=== PATIENT | male | born 1945 | race Caucasian/White ===

== ENCOUNTER 2018-04-06 15:26 | Inpatient (IN) | payer OTHER ==
[~2018-04-06] VITALS: Ht 190.5 cm; Wt 165.2 kg
--- NOTE | 2018-04-06 15:51 | ED CARDIAC/CP/PALPITATIONS ---
History of Present Illness General Chief Complaint: Chest Pain Stated Complaint: CP/SOB Source: patient Exam Limitations: no limitations Vital Signs & Intake/Output Vital Signs & Intake/Output Vital Signs Date Time Temp Pulse Resp B/P B/P Pulse O2 O2 Flow FiO2 Mean Ox Delivery Rate 04/09 0000 96 Room Air 04/09 0000 98.6 44 16 144/60 96 Room Air 04/08 2155 Room Air 04/08 1600 97.7 72 22 140/58 96 Room Air 04/08 0833 46 151/58 04/08 0800 97.0 44 22 160/58 95 Room Air ED Intake and Output 04/09 0000 04/08 1200 Intake Total 630 Output Total 1850 500 Balance -1220 -500 Intake, IV 0 Intake, Oral 630 Number 2 1 Bowel Movements Output, Urine 1850 500 Allergies Coded Allergies: No Known Allergies (04/06/18) Reconcile Medications Aspirin (Ecotrin*) 81 MG TABLET.DR 1 TAB PO DAILY HEART/BLOOD (Reported) Colchicine (Colcrys) 0.6 MG TABLET 1 TAB PO DAILY GOUT (Reported) Doxazosin Mesylate (Cardura) 4 MG TABLET 1 TAB PO DAILY BP (Reported) Febuxostat (Uloric) 80 MG TABLET 1 TAB PO DAILY URIC ACID (Reported) Fluticasone Propionate (Flonase Allergy Relief) 50 MCG/ACTUATION SPRAY.SUSP 1 SPRAY NASB DAILY SINUS (Reported) Furosemide 40 MG TABLET 1 TAB PO DAILY DIURETIC (Reported) Lisinopril/Hydrochlorothiazide (Lisinopril-Hctz 20-25 MG Tab) 20 MG-25 MG TABLET 1 TAB PO DAILY BP (Reported) Triage Note: PT TO ER WITH C/C CHEST HEAVINESS X 3.5 HRS STARTED WHILE SITTING WATCHING TV. STATES PT HAS HAD INCREASED B/L LE EDEMA AND EXERTIONAL SOB. ADDITIONALLY PT HAS A CLOGGED RIGHT EAR, CLEARED BY MD ON 03/31, NOW EXPERIENCING DIZZINESS W/ POSITION CHANGE. EKG COMPLETE UPON ARRIVAL TO ED Triage Nurses Notes Reviewed? yes HPI: 72yo male with a history of HTN and hyperlipidemia presents today for chest pressure, mild diaphoresis, and shortness of breath that started around noon today while he was watching tv. Pt states that the pain is constant pressure is in the center of his chest. The pain is localized to the chest and does not radiate anywhere. Over the past few weeks, pt has had new onset of shortness of breath with exersion, but denies any chest pressure associated with it. Pt has impressive edema of the bilateral lower extremities, for which he states is normal for him. Denies any history of chest pressure or pain. Denies any fevers, chills, headaches, nausea. Denies history of smoking. 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 Family history is significant for father with angina. Past History Travel History Traveled to [place] past 21 day No Medical History Any Pertinent Medical History? see below for history Cardiovascular: hypertension Surgical History Surgical History: non-contributory Psychosocial History What is your primary language [place] Tobacco Use: Never used Family History Hx Contributory? No Review of Systems Review of Systems Constitutional: Reports: no symptoms. EENTM: Reports: no symptoms. Respiratory: Reports: no symptoms. Cardiovascular: Reports: no symptoms. GI: Reports: no symptoms. Genitourinary: Reports: no symptoms. Musculoskeletal: Reports: no symptoms. Skin: Reports: no symptoms. Neurological/Psychological: Reports: no symptoms. Hematologic/Endocrine: Reports: no symptoms. Immunologic/Allergic: Reports: no symptoms. All Other Systems: Reviewed and Negative Physical Exam Physical Exam General Appearance: well developed/nourished, no apparent distress Head: atraumatic, normal appearance Eyes: Bilateral: normal appearance. Ears, Nose, Throat: hearing grossly normal Neck: normal inspection, supple, full range of motion Respiratory: normal breath sounds, chest non-tender, no respiratory distress Cardiovascular: regular rate/rhythm Gastrointestinal: soft, non-tender Back: normal inspection, normal range of motion Extremities: normal inspection, normal range of motion Neurologic/Psych: awake, alert, oriented x 3, normal mood/affect Skin: intact, normal color, warm/dry Core Measures ACS in differential dx? Yes CVA/TIA Diagnosis No Sepsis Present: No Sepsis Focused Exam Completed? No Progress Differential Diagnosis: AMI, aortic dissection, atrial fibrillation, cholecystitis, CHF/pulm edema, costochondritis, hyperkalemia, hypovolemia, hyperthyroid, hyperventilation, intracranial hemorrhage, musculoskeletal pain, myocarditis, pancreatitis, pericarditis, pneumonia, pneumothorax, PSVT, pulmonary embolism, PUD/GERD, PVCs/PACs, respiratory failure, rib fracture, sepsis, unstable angina, V-fib/V-Tach, WPW syndrome Plan of Care: Orders Procedure Date/time Status MAGNESIUM 04/09 0500 Active CBC WITHOUT DIFFERENTIAL 04/09 0500 Active BASIC ELECTROLYTES PLUS BUN&CR 04/09 0500 Active Regular Diet 04/08 L Active Transfer patient to 04/08 1924 Active MYOCARDIAL PERFUSION IMAGING 04/08 1130 Active Current Medications Sig/Brittany Start time Last Medication Dose Stop Time Status Admin Fluticasone 2 SPRAY DAILY NEEDED PRN 04/09 09 AC Propionate (Flonase) Nystatin 1 HUANG BID 04/08 09 AC 04/08 (Mycostatin) 2034 Aspirin Buffered 81 MG DAILY 04/07 0900 AC 04/08 (Ecotrin) 0833 Colchicine 600 MCG DAILY 04/07 09 AC 04/08 (Colchicine 600MCG 0833 Tab) Enoxaparin Sodium 40 MG DAILY 04/07 09 AC 04/08 (Lovenox) 0833 Furosemide 40 MG DAILY 04/07 09 AC 04/08 (Lasix) 0833 Hydrochlorothiazide 25 MG DAILY 04/07 09 AC 04/08 (Hydrodiuril) 0833 Lisinopril 20 MG DAILY 04/07 0900 AC 04/08 (Prinivil) 0833 Atropine Sulfate 0.5 MG Q 5 MINUTES X 3 DO.. 04/06 2100 AC (Atropine) Acetaminophen 650 MG Q6P PRN 04/06 2045 AC (Tylenol) Laboratory Tests 04/08/18 0600: Anion Gap 11, Estimated GFR > 60, BUN/Creatinine Ratio 27.3 H, Magnesium 2.0 04/08/18 0525: CBC w Diff NO MAN DIFF REQ, RBC 4.89, MCV 84.3, MCH 27.7, MCHC 32.9 L, RDW 15.8 H, MPV 8.8, Gran % 64.1, Lymphocytes % 23.3, Monocytes % 8.2, Eosinophils % 4.1 , Basophils % 0.3, Absolute Granulocytes 4.5, Absolute Lymphocytes 1.6, Absolute Monocytes 0.6, Absolute Eosinophils 0.3, Absolute Basophils 0 On repeat EKG, patient is in complete heart block, still asymptomatic, will be admitted to the ICU. Sinus bradycardia to 42 on the monitor, asymptomatic. Spoke with cardiology, will admit patient for monitoring. Diagnostic Imaging: Viewed by Me: Radiology Read. Discussed w/RAD: Radiology Read. Initial ED EKG: normal sinus rhythm, no ST T wave changes Departure Departure Disposition: STILL A PATIENT Condition: Stable Clinical Impression Primary Impression: Chest pain at rest Secondary Impressions: Sinus bradycardia Departure Forms: Customer Survey General Discharge Information Admission Note Spoke With: Erich Woods MD Documentation of Exam: Documentation of any treatments & extenuating circumstances including Concerns Regarding Discharge (functional status, medication knowledge or non-compliance, living conditions, etc.) that warrant an admission rather than observation: chest pain at rest associated with SOB and diaphoresis with concern for unstable angina, along with sinus bradycardia to 40's with no history of bradycardia and no AV-roberto blocking agents, will admit to medicine for telemetry monitoring, serial cardiac enzymes and TSH, cardiology consult, stress test, workup of bradycardia. Critical Care Note Critical Care Note Critical Care Time: 30-74 min
[2018-04-06 16:10] LABS: ABSOLUTE BASOPHIL COUNT 0 /CUMM (0.0-0.2); ABSOLUTE EOSINOPHIL COUNT 0.3 /CUMM (0.0-0.7); ABSOLUTE GRANULOCYTE CT 4.4 /CUMM (1.4-6.5); ABSOLUTE LYMPH COUNT 1.7 /CUMM (1.2-3.4); ABSOLUTE MONOCYTE COUNT 0.6 /CUMM (0.10-0.60); BASOPHIL % 0.3 % (0.0-2.0); EOSINOPHIL % 4.7 % (0-5); GRANULOCYTE % 63.2 % (42.2-75.2); HEMATOCRIT 41.4 % (42-52); MEAN CORPUSCULAR HGB CONC 33.2 G/DL (33.0-37.0); MEAN CORPUSCULAR VOLUME 84.2 FL (80.0-94.0); MEAN PLATELET VOLUME 8.3 FL (7.4-10.4); PLATELET COUNT 210 /CUMM (130-400); RBC DISTRIBUTION WIDTH 15.6 % (11.5-14.5); RED BLOOD CELL CT 4.91 /CUMM (4.70-6.10)
[2018-04-06] MEDS ORDERED: COLCRYS0.6 M1 PO (16:14)
[2018-04-06] MEDS ORDERED: ASPIRIN EC81 M1 PO (16:14)
[2018-04-06] MEDS ORDERED: CARDURA4 M1 PO (16:15)
[2018-04-06] MEDS ORDERED: LISINOPRIL-HCT1 EAC1 PO (16:15)
[2018-04-06] MEDS ORDERED: FUROSEMIDE40 M1 PO (16:16)
[2018-04-06] MEDS ORDERED: ULORIC80 M1 PO (16:16)
[2018-04-06] MEDS ORDERED: FLONASE ALLERG9.9 ML NASB (16:18)
--- NOTE | 2018-04-06 16:45 | RADIOLOGY REPORT ---
EXAMINATION: XR CHEST CLINICAL INFORMATION: Chest pain. COMPARISON: None TECHNIQUE: 2 views of the chest were obtained. FINDINGS: No significant abnormality is noted involving the heart, lungs, mediastinum, bony thorax or soft tissues. IMPRESSION: Unremarkable examination.
--- NOTE | 2018-04-06 20:02 | History & Physical ---
Samy Brewer 04/06/18 2001: General Information and HPI MD Statement: I have seen and personally examined CARLIE DANG and documented this H&P. The patient is a 72 year old M who presented with a patient stated chief complaint of [chest pain]. Source of Information: patient, family Exam Limitations: no limitations History of Present Illness: The patient is a 72 years old man with past medical history of HTN, Obesity, HLP , and gout who is in the ER with CC of pressure like chest pain. This is the first time that he has had chest pain. He was feeling fine from this morning when he woke up. Previously he had some exertional SOB and diaphoresis for the past few weeks but he does not report any chest pain associated with that. He was felling relatively fine till 3.5 hours prior to admission (noon time) when he had a pressure like chest pain, mild diaphoresis and SOB. This pain happened while he was at rest watching TV. He reports the pain being constant, pressure-like and at the center of his chest. This pain did not radiate and there were no allevaiting factor. He talked to his son about his pain and then his family took him to the ER. During the interview he mentions that he had siaphoresis on his way to the hospital. He also reports that recently he has been having SOB and excessive sweating during activity. This the first time that he has had a chest pain. He does not report headache, fever, chills, change in his vision, palpiatation, dizziness, acid reflux, lightheadedness, SOB, cough, N/V, change in bowel habits , tingling, numbness, or changes in urination. PMHx: HTN, Obesity, HLP, and gout Surg Hx: Retina and cataract surgery. Rt elbow surgery. FHx: Father: angina, prostate cancer, Mother: Alzheimer disease Social: he does not smoke, drinks alcohol socially and no recreational drug use. 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 Labs: WBC: 6.7, Hb: 13.6, Hct: 41.1, Plt: 190 Na: 143, K: 4.1, Cl: 106, CO2: 27, BUN: 31, Cr: 1.0 M.1, Trop: <0.01 x 2 Imaging: CXR: Unremarkable examination. EKG: Junctional bradycardia with sinus arrest and retrograde P waves and complete right bundle branch block and first-degree AV block Allergies/Medications Allergies: Coded Allergies: No Known Allergies (04/06/18) Home Med list Aspirin (Ecotrin*) 81 MG TABLET.DR 1 TAB PO DAILY HEART/BLOOD (Reported) Colchicine (Colcrys) 0.6 MG TABLET 1 TAB PO DAILY GOUT (Reported) Doxazosin Mesylate (Cardura) 4 MG TABLET 1 TAB PO DAILY BP (Reported) Febuxostat (Uloric) 80 MG TABLET 1 TAB PO DAILY URIC ACID (Reported) Fluticasone Propionate (Flonase Allergy Relief) 50 MCG/ACTUATION SPRAY.SUSP 1 SPRAY NASB DAILY SINUS (Reported) Furosemide 40 MG TABLET 1 TAB PO DAILY DIURETIC (Reported) Lisinopril/Hydrochlorothiazide (Lisinopril-Hctz 20-25 MG Tab) 20 MG-25 MG TABLET 1 TAB PO DAILY BP (Reported) Compliance With Home Meds: GOOD Past History Travel History Traveled to [place] past 21 day No Medical History Cardiovascular: hypertension Surgical History Surgical History: non-contributory Review of Systems Review of Systems Constitutional: Reports: see HPI. EENTM: Reports: see HPI. Cardiovascular: Reports: see HPI. Respiratory: Reports: see HPI. GI: Reports: see HPI. Genitourinary: Reports: see HPI. Musculoskeletal: Reports: see HPI. Skin: Reports: see HPI. Neurological/Psychological: Reports: see HPI. Hematologic/Endocrine: Reports: see HPI. Immunologic/Allergic: Reports: see HPI. Exam & Diagnostic Data Last 24 Hrs of Vital Signs/I&O Vital Signs Date Time Temp Pulse Resp B/P B/P Pulse O2 O2 Flow FiO2 Mean Ox Delivery Rate 04/06 2200 96.8 60 24 174/58 95 Room Air 04/06 2041 56 18 178/80 96 Room Air 04/06 1935 52 18 170/60 97 Room Air 04/06 1754 98.1 53 18 174/70 99 Room Air 04/06 1559 97 04/06 1538 98.7 67 18 154/59 100 Room Air Intake & Output 04/07 0800 04/07 0000 04/06 1600 Intake Total 320 420 Output Total 400 Balance -80 420 Intake, IV 0 Intake, Oral 320 420 Number 1 1 Bowel Movements Output, Urine 400 Patient 377 lb 385 lb Weight Weight Bed scale Reported by Patient Measurement Method Physical Exam General Appearance Alert, Oriented X3, Cooperative, No Acute Distress Skin No Rashes, No Breakdown Skin Temp/Moisture Exam: Warm/Dry Sepsis Skin Exam (color): Normal for Ethnicity HEENT Atraumatic, PERRLA, EOMI Neck Supple, No JVD Cardiovascular Regular Rate, Normal S1, Normal S2 Lungs Clear to Auscultation, Normal Air Movement Abdomen Normal Bowel Sounds, Soft, No Tenderness Neurological Normal Speech, Strength at 5/5 X4 Ext, Sensation Intact Extremities bilateral 2+ PITTING EDEMA IN lEs Vascular Normal Pulses Sepsis Peripheral Pulse Location: Radial Sepsis Peripheral Pulse Exam: Normal Sepsis Cap Refill Exam: <2 Sec Assessment/Plan Assessment: Mr. Dang is a 72 yo man with a PMHx of HTN and HLP who is here with chest pain that is non-radiating with, diaphoresis. At the time of interview he did not have chest pain and he felt relatively fine. he had SBP of 154 to 178. In physical examination the patient is morbidly obese. He is physical examinations for cardiopulmonary was normal. His troponin level and BNP were normal. Chest x-ray was normal. BUN and creatinine and electrolytes were normal in his labs. He is EKG showed a wide complex bradycardia with some dropped beats that did not have a P-wave and it also showed a right bundle branch block. Patient received 325mg of aspirin in the ED. He has multiple risk factors for coronary artery disease. He had acute onset chest discomfort with no radiation while he was at rest. Last time he saw a associate program manager was a 1 year ago but no specific tests were done for him. He will be admitted to ICU and EKG troponin levels will be assessed while he has 3 negative levels of troponin. A transthoracic echocardiogram should be considered for the patient and the associate program manager will visit the patient for better evaluation. Problem list Possible angina (the patient had chest pain and diaphoresis) Bradycardia with conduction disease Hypertension Hyperlipidemia Obesity As Ranked By This Provider Problem List: 1. Chest pain at rest 2. Sinus bradycardia 3. Morbid obesity 4. Hyperlipidemia Core Measures/Misc (06/02) Acute Coronary Syndrome ACS Diagnosis: Yes Congestive Heart Failure Congestive Heart Failure Diagnosis No Cerebrovascular Accident CVA/TIA Diagnosis: No VTE (View Protocol) VTE Risk Factors Age>40 No Mechanical VTE Prophylaxis d/t N/A MechProphylax Ordered No VTE Pharm Prophylaxis d/t NA PharmProphylax ordered Sepsis (View protocol) Sepsis Present: No If YES complete Sepsis Event Note If YES complete Sepsis Event Note Fernando Mccormick MD 04/06/182036: Core Measures/Misc (06/02) Sepsis (View protocol) If YES complete Sepsis Event Note If YES complete Sepsis Event Note Resident Review Statement Resident Statement: examined this patient, discussed with software intern, agreed with software intern, reviewed EMR data (avail) Other Findings: History of present illness 72-year-old man with past medical history of hypertension, hyperlipidemia, gout, and obesity brought in by ambulance for evaluation of chest pain at rest. Patient reports being in his normal state of health when he was at home watching television on the couch around 12:30 PM when he developed sudden onset left- sided chest discomfort without radiation or aggravating/alleviating factors. Patient informed his son of this whom informed the patient's for which EMS was contacted and patient was brought to the [facility] for evaluation. Presently patient states that he feels well and has no new complaints but does admit to developing an episode of cold sweats en route to the hospital. He admits to recently developing exertional shortness of breath with excessive sweating during any kind of physical activity. He denies ever having had an event like this before. He admits to a family history of multiple first-degree family members with significant cardiovascular disease. 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 He denies any obvious recent tick bites. Review of systems He otherwise denies any headache, fever, chills, blurred/double vision, lightheadedness/dizziness, current chest pain, palpitations, heartburn, shortness of breath, cough, nausea, vomiting, diarrhea, constipation, abdominal pain, urinary complaints, numbness, tingling, or weakness. Social history He denies smoking cigarettes, drinking alcohol, or use of recreational drugs. He is independent in all ADLs/IADLs. He is compliant with his medications. Objective Vitals-temperature 98.1-98.7, HR 52-67, RR 18, BP 154-178/59-70, O2 97-100% on room air Physical exam -General: Well-developed, morbidly obese elderly man in no acute distress -HEENT: NCAT, Bao, EOMI, anicteric sclera, moist mucous membranes -Neck: Supple, no JVD/garcia A waves, trachea midline, no accessory respiratory muscle use -Cardio: Normal S1/S2 without murmurs/gallops/rubs; regular rate and rhythm -Pulmonary: Diminished bibasilar airflow -Abdomen: Soft, obese, nontender, nondistended, bowel sounds intact -Neuro: Awake and alert, cranial nerves II through XII grossly intact -Extremities: 4+ bilateral lower extremity pitting edema, normal pulses Labs/imaging/studies -CBC: WBC 7.0, hemoglobin 13.8, hematocrit 41.4, platelet 210 -BMP: Sodium 143, potassium 4.1, chloride 105, CO2 27, BUN 33, creatinine 1.3, anion gap 10, glucose 89 -LFT: Within normal limits -Miscellaneous: Troponin I <0.01, BNP 363 -EKG: Junctional bradycardia with sinus arrest and retrograde P waves and complete right bundle branch block and first-degree AV block -CXR: Unremarkable examination Assessment 72-year-old morbidly obese man with multiple cardiovascular risk factors including hypertension, and hyperlipidemia seen for evaluation of acute onset left-sided nonradiating chest pain with diaphoresis at rest. Presently patient feels well and has no complaints. Vital signs are significant for an elevated systolic blood pressure ranging 154-178. Physical examination demonstrates a morbidly obese elderly man in no acute distress with a normal cardiopulmonary examination, flat neck veins, and 4+ bilateral lower extremity chronic edema. Labs including CBC, BMP, troponin I, BNP, LFT are within normal limits or negative. Chest x-ray is unremarkable. EKG demonstrated wide complex bradycardia with retrograde P waves and complete right bundle branch block. Patient received full strength aspirin in the ED. Clinically patient appears to have had acute onset chest discomfort at rest that resolved without intervention. Patient has multiple cardiovascular risk factors concerning for underlying coronary artery disease. Patient reportedly saw a associate program manager approximately 1 year ago prior to having "eye surgery" but did not have any testing done other than an EKG. patient has moderate pretest probability for coronary artery disease and is likely suffering from angina. EKG demonstrates high-grade conduction disease with occasional brief episodes of sinus arrest. Patient is being admitted to the ICU as a telemetry hold for telemetry monitoring, serial troponin/EKG, possibly transcutaneous pacing, transthoracic echocardiogram, and cardiology consultation. Problem List -chest discomfort with diaphoresis, probable underlying angina -bradycardia with high-grade conduction disease -hypertension -Hyperlipidemia -Morbid obesity -Gout Plan -Admit to ICU as telemetry hold -Telemetry monitoring -Keep pacer pads on patient attached to monitor at all times -Atropine at bedside -Continue home meds: Aspirin, colchicine, Cardura, Uloric, fluticasone, furosemide, lisinopril, hydrochlorothiazide -Consult with cardiology -Trend troponin / EKG until peak or three negative sets -Check TSHR, Lyme Titer, Lipid panel, HbA1c -Transthoracic echocardiogram -Pain control with acetaminophen -Heart Healthy Diet -DVT PPx -FULL CODE Chuck LAZOGrant 04/07/18 0452: General Information and HPI Statement: I have seen and personally examined JANACURTCARLIE and documented this H&P. The patient is a 72 year old M who presented with a patient stated chief complaint of [chest pain]. Source of Information: patient Exam Limitations: no limitations Past History Medical History Cardiovascular: hypertension, hyperlipidemia Musculoskeletal: gout Endocrine: obesity Past Family/Social History Psychosocial History Smoking Status: Never Smoked ETOH Use: denies use Illicit Drug Use: denies illicit drug use Review of Systems Review of Systems Constitutional: Reports: see HPI. Exam & Diagnostic Data Last 24 Hrs of Vital Signs/I&O Vital Signs Date Time Temp Pulse Resp B/P B/P Pulse O2 O2 Flow FiO2 Mean Ox Delivery Rate 04/06 2200 96.8 60 24 174/58 95 Room Air 04/06 2041 56 18 178/80 96 Room Air 04/06 1935 52 18 170/60 97 Room Air 04/06 1754 98.1 53 18 174/70 99 Room Air 04/06 1559 97 04/06 1538 98.7 67 18 154/59 100 Room Air Intake & Output 04/07 0800 04/07 0000 04/06 1600 Intake Total 420 Output Total Balance 420 Intake, IV 0 Intake, Oral 420 Number 1 Bowel Movements Patient 377 lb 385 lb Weight Weight Bed scale Reported by Patient Measurement Method Physical Exam General Appearance Alert, Oriented X3, Cooperative, No Acute Distress Skin No Rashes, No Breakdown HEENT Atraumatic, PERRLA, EOMI Neck Supple, No JVD Lymphatic Axillary nl, Cervical nl Cardiovascular Regular Rate, Normal S1, Normal S2 Lungs Clear to Auscultation, Normal Air Movement Abdomen Normal Bowel Sounds, Soft, No Tenderness Neurological Normal Gait, Normal Speech Extremities b/l LE edema Vascular Normal Pulses Last 24 Hrs of Labs/Kartik: Laboratory Tests 04/07/18 0030: Troponin I < 0.01 04/06/18 1920: Troponin I < 0.01 04/06/18 1552: Anion Gap 10, Estimated GFR 54 L, BUN/Creatinine Ratio 25.4 H, Glucose 89, Hemoglobin A1c Pending, Calcium 8.9, Total Bilirubin 0.4, AST 19, ALT 29, Alkaline Phosphatase 57, Troponin I < 0.01, Pvy-V-Fhpejrakhzs Pept 363 H, Total Protein 6.6, Albumin 3.5, Globulin 3.1, Albumin/Globulin Ratio 1.1, Triglycerides 192 H, Cholesterol 147, LDL Cholesterol, Calc 83, HDL Cholesterol 26 L, Cholesterol/HDL Ratio 6 H, TSH &T3 &Free T4 Intrp 4.000, CBC w Diff NO MAN DIFF REQ, RBC 4.91, MCV 84.2, MCH 28.0, MCHC 33.2, RDW 15.6 H, MPV 8.3, Gran % 63.2, Lymphocytes % 23.5, Monocytes % 8.3, Eosinophils % 4.7, Basophils % 0.3, Absolute Granulocytes 4.4, Absolute Lymphocytes 1.7, Absolute Monocytes 0.6 , Absolute Eosinophils 0.3, Absolute Basophils 0, Lyme Disease Antibody Pending Microbiology 04/06 2200 UPPER RESP: Surveillance Culture - RECD 04/06 2200 GI: Surveillance Culture - RECD Core Measures/Misc (06/02) Sepsis (View protocol) If YES complete Sepsis Event Note If YES complete Sepsis Event Note Attending MD Review Statement Attending Statement Attending MD Statement: examined this patient, discuss w/resident/PA/WATER RESOURCE AGENT, agreed w/resident/PA/WATER RESOURCE AGENT, amended to note Attending Assessment/Plan: This patient is a 72-year-old white male with a significant past medical history for hypertension, hyperlipidemia, gout, and obesity brought in by ambulance for evaluation of chest pain at rest. The patient reports being in his normal state of health when he was at home watching television on the couch around 12:30 PM the day of admission when he developed sudden onset left-sided chest discomfort without radiation or aggravating/alleviating factors. Upon evaluation he is found to have an elevated BP, 4+ b/l LE edema, negative troponin, BNP 363 and an EKG with RBBB & 1st Degree AVB. He had acute onset chest discomfort at rest that resolved without intervention with multiple cardiovascular risk factors concerning for underlying coronary artery disease. Admitted to the ICU as a telemetry hold for telemetry monitoring, serial troponin/EKG, possibly transcutaneous pacing, transthoracic echocardiogram, and cardiology consultation. Protein 6.6, Albumin 3.5, Globulin 3.1, Albumin/Globulin Ratio 1.1, Triglycerides 192 H, Cholesterol 147, LDL Cholesterol, Calc 83, HDL Cholesterol 26 L, Cholesterol/HDL Ratio 6 H, TSH &T3 &Free T4 Intrp 4.000, CBC w Diff NO MAN DIFF REQ, RBC 4.91, MCV 84.2, MCH 28.0, MCHC 33.2, RDW 15.6 H, MPV 8.3, Gran % 63.2, Lymphocytes % 23.5, Monocytes % 8.3, Eosinophils % 4.7, Basophils % 0.3, Absolute Granulocytes 4.4, Absolute Lymphocytes 1.7, Absolute Monocytes 0.6 , Absolute Eosinophils 0.3, Absolute Basophils 0, Lyme Disease Antibody Pending Microbiology 04/06 2200 UPPER RESP: Surveillance Culture - RECD 04/06 2200 GI: Surveillance Culture - RECD Core Measures/Misc (06/02) Sepsis (View protocol) If YES complete Sepsis Event Note If YES complete Sepsis Event Note Attending MD Review Statement Attending Statement Attending MD Statement: examined this patient, discuss w/resident/PA/WATER RESOURCE AGENT, agreed w/resident/PA/WATER RESOURCE AGENT, amended to note Attending Assessment/Plan: This patient is a 72-year-old white male with a significant past medical history for hypertension, hyperlipidemia, gout, and obesity brought in by ambulance for evaluation of chest pain at rest. The patient reports being in his normal state of health when he was at home watching television on the couch around 12:30 PM the day of admission when he developed sudden onset left-sided chest discomfort without radiation or aggravating/alleviating factors. Upon evaluation he is found to have an elevated BP, 4+ b/l LE edema, negative troponin, BNP 363 and an EKG with RBBB & 1st Degree AVB. He had acute onset chest discomfort at rest that resolved without intervention with multiple cardiovascular risk factors concerning for underlying coronary artery disease. Admitted to the ICU as a telemetry hold for telemetry monitoring, serial troponin/EKG, possibly transcutaneous pacing, transthoracic echocardiogram, and cardiology consultation.
[2018-04-06 22:00] VITALS: BP 174/58
[2018-04-07 06:02] LABS: ABSOLUTE BASOPHIL COUNT 0 /CUMM (0.0-0.2); ABSOLUTE EOSINOPHIL COUNT 0.3 /CUMM (0.0-0.7); ABSOLUTE GRANULOCYTE CT 4.5 /CUMM (1.4-6.5); ABSOLUTE LYMPH COUNT 1.4 /CUMM (1.2-3.4); ABSOLUTE MONOCYTE COUNT 0.5 /CUMM (0.10-0.60); BASOPHIL % 0.7 % (0.0-2.0); EOSINOPHIL % 4.7 % (0-5); GRANULOCYTE % 67.3 % (42.2-75.2); HEMATOCRIT 41.1 % (42-52); MEAN CORPUSCULAR HGB 27.9 PG (27.0-31.0); MEAN CORPUSCULAR HGB CONC 33.1 G/DL (33.0-37.0); MEAN CORPUSCULAR VOLUME 84.4 FL (80.0-94.0); MEAN PLATELET VOLUME 8.9 FL (7.4-10.4); PLATELET COUNT 190 /CUMM (130-400); RBC DISTRIBUTION WIDTH 15.6 % (11.5-14.5); RED BLOOD CELL CT 4.87 /CUMM (4.70-6.10); WHITE BLOOD CELL COUNT 6.7 /CUMM (4.8-10.8)
[2018-04-07 07:00] VITALS: BP 142/62
--- NOTE | 2018-04-07 07:19 | Cons- CRCU ---
General Information and HPI Allergies/Medications Allergies: Coded Allergies: No Known Allergies (04/06/18) Home Med List: Aspirin (Ecotrin*) 81 MG TABLET.DR 1 TAB PO DAILY HEART/BLOOD (Reported) Colchicine (Colcrys) 0.6 MG TABLET 1 TAB PO DAILY GOUT (Reported) Doxazosin Mesylate (Cardura) 4 MG TABLET 1 TAB PO DAILY BP (Reported) Febuxostat (Uloric) 80 MG TABLET 1 TAB PO DAILY URIC ACID (Reported) Fluticasone Propionate (Flonase Allergy Relief) 50 MCG/ACTUATION SPRAY.SUSP 1 SPRAY NASB DAILY SINUS (Reported) Furosemide 40 MG TABLET 1 TAB PO DAILY DIURETIC (Reported) Lisinopril/Hydrochlorothiazide (Lisinopril-Hctz 20-25 MG Tab) 20 MG-25 MG TABLET 1 TAB PO DAILY BP (Reported) Past History Travel History Traveled to [place] past 21 day No Medical History Blood Transfusion Hx: No Cardiovascular: hypertension, hyperlipidemia Musculoskeletal: gout Endocrine: obesity Surgical History Surgical History: non-contributory Psychosocial History Where Do You Live? Home Services at Home: None Smoking Status: Never Smoked ETOH Use: denies use Illicit Drug Use: denies illicit drug use Assessment/Plan CRCU Consult Acknowledgment - Thank you for your consult request.
--- NOTE | 2018-04-07 10:19 | PN- Housestaff ---
Subjective Follow-up For: chest pain bradycardia with conduction disease Tele-Events Since Last Visit: Pauses on the sap portal developer noted. Subjective: Pt seen and examined at bedside this am. He was talkative and cooperative, not in any distress. He states the chest "discomfort and heaviness" is gone and does not feel SOB. Significant bilateral LE edema is noted. Review of Systems Constitutional: Reports: no symptoms. Objective Last 24 Hrs of Vital Signs/I&O Vital Signs Date Time Temp Pulse Resp B/P B/P Pulse O2 O2 Flow FiO2 Mean Ox Delivery Rate 04/06 2200 96.8 60 24 174/58 95 Room Air 04/06 2041 56 18 178/80 96 Room Air 04/06 1935 52 18 170/60 97 Room Air 04/06 1754 98.1 53 18 174/70 99 Room Air 04/06 1559 97 04/06 1538 98.7 67 18 154/59 100 Room Air Intake & Output 04/07 1600 04/07 0800 04/07 0000 Intake Total 320 420 Output Total 400 Balance -80 420 Intake, IV 0 Intake, Oral 320 420 Number 1 1 Bowel Movements Output, Urine 400 Patient 377 lb Weight Weight Bed scale Measurement Method Physical Exam General Appearance: Alert, Oriented X3, Cooperative, No Acute Distress Skin: scattered telangectasias noted on the face Sepsis Skin Exam (color): Normal for Ethnicity HEENT: Atraumatic Neck: Supple, No JVD Cardiovascular: Normal S1, Normal S2, No Murmurs, Bradycardic, pacer pads noted. Lungs: Clear to Auscultation, Normal Air Movement Abdomen: Normal Bowel Sounds, Soft, No Tenderness, No Hepatospenomegaly, No Masses, abdominal obesity Current Medications: Current Medications Sig/Brittany Start time Last Medication Dose Route Stop Time Status Admin Acetaminophen 650 MG Q6P PRN 04/06 2045 AC PO Aspirin 0 .STK-MED ONE 04/06 1602 DC PO Aspirin 325 MG ONCE ONE 04/06 1600 DC 04/06 PO 04/06 1601 1602 Aspirin Buffered 81 MG DAILY 04/07 900 AC 04/07 PO 935 Atropine Sulfate 0.5 MG Q 5 MINUTES X 3 DO.. 04/06 2100 AC IV Colchicine 600 MCG DAILY 04/07 900 AC 04/07 PO 935 Doxazosin Mesylate 1 MG DAILY 04/07 900 AC 04/07 PO 0936 Enoxaparin Sodium 40 MG DAILY 04/07 900 AC 04/07 SC 0940 Fluticasone 2 SPRAY DAILY 04/07 900 AC Propionate SHAUNNA Furosemide 40 MG DAILY 04/07 900 AC 04/07 PO 35 Hydrochlorothiazide 25 MG DAILY 04/07 900 AC 04/07 PO 36 Lisinopril 20 MG DAILY 04/07 900 AC 04/07 PO 0533 Last 24 Hrs of Lab/Kartik Results Last 24 Hrs of Labs/Mics: Laboratory Tests 04/07/18 0520: Anion Gap 10, Estimated GFR > 60, BUN/Creatinine Ratio 31.0 H, Magnesium 2.1, CBC w Diff NO MAN DIFF REQ, RBC 4.87, MCV 84.4, MCH 27.9, MCHC 33.1, RDW 15.6 H , MPV 8.9, Gran % 67.3, Lymphocytes % 20.2 L, Monocytes % 7.1, Eosinophils % 4.7, Basophils % 0.7, Absolute Granulocytes 4.5, Absolute Lymphocytes 1.4, Absolute Monocytes 0.5, Absolute Eosinophils 0.3, Absolute Basophils 0 04/07/18 0030: Troponin I < 0.01 04/06/18 1920: Troponin I < 0.01 04/06/18 1552: Anion Gap 10, Estimated GFR 54 L, BUN/Creatinine Ratio 25.4 H, Glucose 89, Hemoglobin A1c 5.9 H, Calcium 8.9, Total Bilirubin 0.4, AST 19, ALT 29, Alkaline Phosphatase 57, Troponin I < 0.01, Wbg-V-Flzreswutuz Pept 363 H, Total Protein 6.6, Albumin 3.5, Globulin 3.1, Albumin/Globulin Ratio 1.1, Triglycerides 192 H, Cholesterol 147, LDL Cholesterol, Calc 83, HDL Cholesterol 26 L, Cholesterol/HDL Ratio 6 H, TSH &T3 &Free T4 Intrp 4.000, CBC w Diff NO MAN DIFF REQ, RBC 4.91, MCV 84.2, MCH 28.0, MCHC 33.2, RDW 15.6 H, MPV 8.3, Gran % 63.2, Lymphocytes % 23.5, Monocytes % 8.3, Eosinophils % 4.7, Basophils % 0.3, Absolute Granulocytes 4.4, Absolute Lymphocytes 1.7, Absolute Monocytes 0.6 , Absolute Eosinophils 0.3, Absolute Basophils 0, Lyme Disease Antibody Pending Microbiology 04/06 2200 UPPER RESP: Surveillance Culture - RECD 04/06 2200 GI: Surveillance Culture - RECD Orders EKG Findings: Junctional bradycardia, sinus arrest and retrograde P waves with complete right bundle branch block and first-degree AV block Assessment/Plan Assessment: Mr. Dang is a 72 y/o M with a PMH of hypertension, hyperlipidemia, gout, and morbid obesity came to the ED c/o chest pain and SOB. As per the pt, this pain was not severe and nonradiating that appeared during rest with complete resolution without any intervention. SOB has however been proggresive over the past couple of months, especifically during exertion. EKG on ED showed a junctional bradycardia, sinus arrest and retrograde P waves with complete right bundle branch block and first-degree AV block. He was admitted to the ICU as a telemetry hold for close monitoring of abnormal rhythm and r/o ACS. 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 He has been consistently bradycardic though asymptomatic since admission, atropine is at the bedside with pacer pads on. His hemodynamic status has been stable so far. Cardiology has been consulted, with the plan of obtaining nuclear stress testing in the AM. Troponin have so far been negative: an acute compromise of cardiac muscle is less likely. His home medications have been continued, except for his doxazosin which in rare cases can trigger an arrhythmia. Lyme titers are negative. -stress testing in the am -f/u echo -continue lisinopril/furosemide/hctz/ASA -neg lyme titers #Gout Home meds have been continued. No episodes of acute joint pain overnight. -Continue colchicine FULL CODE DVT PPX: pharm Reg Diet Problem List: 1. Morbid obesity 2. Sinus bradycardia Pain Ratin Pain Location: n/a Pain Goal: Pain 4 or less Pain Plan: n/a Tomorrow's Labs & Rationales: cbc bep, mag DVT/Prophylaxis: pharmacological
--- NOTE | 2018-04-07 10:20 | PN- Att Addend ---
See Addendum Attending Addendum Attending Brief Note Patient seen and examined, currently he is chest pain-free. He denies feeling any shortness of breath. Patient admitted with the chest pain. So far troponins are negative. 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 Vital Signs Date Time Temp Pulse Resp B/P B/P Pulse O2 O2 Flow FiO2 Mean Ox Delivery Rate 04/06 2200 96.8 60 24 174/58 95 Room Air 04/06 2041 56 18 178/80 96 Room Air 04/06 1935 52 18 170/60 97 Room Air 04/06 1754 98.1 53 18 174/70 99 Room Air 04/06 1559 97 04/06 1538 98.7 67 18 154/59 100 Room Air on exam; aox3,nad. obese cv; s1,s2, rrr resp; clear abd; soft, nt, bs+ ext; 2+ edema Laboratory Tests 04/07 04/07 04/06 0520 0030 1920 Chemistry Sodium (137 - 145 mmol/L) 143 Potassium (3.5 - 5.1 mmol/L) 4.1 Chloride (98 - 107 mmol/L) 106 Carbon Dioxide (22 - 30 mmol/L) 27 Anion Gap (5 - 16) 10 BUN (9 - 20 mg/dL) 31 H Creatinine (0.7 - 1.2 mg/dL) 1.0 Estimated GFR (>60 ml/min) > 60 BUN/Creatinine Ratio (7 - 25 %) 31.0 H Magnesium (1.6 - 2.3 mg/dL) 2.1 Troponin I (<0.11 ng/ml) < 0.01 < 0.01 Hematology CBC w Diff NO MAN DIFF REQ WBC (4.8 - 10.8 /CUMM) 6.7 RBC (4.70 - 6.10 /CUMM) 4.87 Hgb (14.0 - 18.0 G/DL) 13.6 L Hct (42 - 52 %) 41.1 L MCV (80.0 - 94.0 FL) 84.4 MCH (27.0 - 31.0 PG) 27.9 MCHC (33.0 - 37.0 G/DL) 33.1 RDW (11.5 - 14.5 %) 15.6 H Plt Count (130 - 400 /CUMM) 190 MPV (7.4 - 10.4 FL) 8.9 Gran % (42.2 - 75.2 %) 67.3 Lymphocytes % (20.5 - 51.1 %) 20.2 L Monocytes % (1.7 - 9.3 %) 7.1 Eosinophils % (0 - 5 %) 4.7 Basophils % (0.0 - 2.0 %) 0.7 Absolute Granulocytes (1.4 - 6.5 /CUMM) 4.5 Absolute Lymphocytes (1.2 - 3.4 /CUMM) 1.4 Absolute Monocytes (0.10 - 0.60 /CUMM) 0.5 Absolute Eosinophils (0.0 - 0.7 /CUMM) 0.3 Absolute Basophils (0.0 - 0.2 /CUMM) 0 04/06 1552 Chemistry Sodium (137 - 145 mmol/L) 143 Potassium (3.5 - 5.1 mmol/L) 4.1 Chloride (98 - 107 mmol/L) 105 Carbon Dioxide (22 - 30 mmol/L) 27 Anion Gap (5 - 16) 10 BUN (9 - 20 mg/dL) 33 H Creatinine (0.7 - 1.2 mg/dL) 1.3 H Estimated GFR (>60 ml/min) 54 L BUN/Creatinine Ratio (7 - 25 %) 25.4 H Glucose (65 - 99 mg/dL) 89 Hemoglobin A1c (4.2 - 5.8 %) 5.9 H Calcium (8.4 - 10.2 mg/dL) 8.9 Total Bilirubin (0.2 - 1.3 mg/dL) 0.4 AST (17 - 59 U/L) 19 ALT (21 - 72 U/L) 29 Alkaline Phosphatase (< 127 U/L) 57 Troponin I (<0.11 ng/ml) < 0.01 Lcz-Z-Erllcdmzkto Pept (<125 pg/mL) 363 H Total Protein (6.3 - 8.2 g/dL) 6.6 Albumin (3.5 - 5.0 g/dL) 3.5 Globulin (1.9 - 4.2 gm/dL) 3.1 Albumin/Globulin Ratio (1.1 - 2.2 %) 1.1 Triglycerides (<150 mg/dL) 192 H Cholesterol (< 200 MG/DL) 147 LDL Cholesterol, Calc (65 - 129 mg/dL) 83 HDL Cholesterol (40 - 60 mg/dL) 26 L Cholesterol/HDL Ratio (0.00 - 4.88 %) 6 H TSH &T3 &Free T4 Intrp (0.27 - 4.20 uIU/mL) 4.000 Hematology CBC w Diff NO MAN DIFF REQ WBC (4.8 - 10.8 /CUMM) 7.0 RBC (4.70 - 6.10 /CUMM) 4.91 Hgb (14.0 - 18.0 G/DL) 13.8 L Hct (42 - 52 %) 41.4 L MCV (80.0 - 94.0 FL) 84.2 MCH (27.0 - 31.0 PG) 28.0 MCHC (33.0 - 37.0 G/DL) 33.2 RDW (11.5 - 14.5 %) 15.6 H Plt Count (130 - 400 /CUMM) 210 MPV (7.4 - 10.4 FL) 8.3 Gran % (42.2 - 75.2 %) 63.2 Lymphocytes % (20.5 - 51.1 %) 23.5 Monocytes % (1.7 - 9.3 %) 8.3 Eosinophils % (0 - 5 %) 4.7 Basophils % (0.0 - 2.0 %) 0.3 Absolute Granulocytes (1.4 - 6.5 /CUMM) 4.4 Absolute Lymphocytes (1.2 - 3.4 /CUMM) 1.7 Absolute Monocytes (0.10 - 0.60 /CUMM) 0.6 Absolute Eosinophils (0.0 - 0.7 /CUMM) 0.3 Absolute Basophils (0.0 - 0.2 /CUMM) 0 Serology Lyme Disease Antibody Pending A/P; 72 y/o M with pmh sig for HTN, Obesity, HLP, and gout admitted with chest pain. Trops x 3 neg. Pt having some Pauses on tele monitor. Will follow up on the echo results. So far troponins are negative. Will follow up on the cardiology recommendations. Continue current management. Blood pressure was running high overnight, this morning it was slightly better. DVT prophylaxis: Lovenox.
--- NOTE | 2018-04-07 11:39 | Cons- Cardiology ---
General Information and HPI Consulting Request Date of Consult: 04/07/18 Requested By: Erich Woods MD Reason for Consult: Chest discomfort. Source of Information: patient Exam Limitations: no limitations History of Present Illness: Mr. Joey Osborn is a 72-year-old male with a history of morbid obesity, dyslipidemia, hypertension, childhood asthma, and gout who presented to the ED with complaints of pressure-like, mild ("4/10"), nonradiating, substernal chest discomfort with associated mild diaphoresis and shortness of breath while watching television at around noontime yesterday, 04/06/2018 that lasted approximately 20 minutes before spontaneously subsiding. 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 He denies any known history of coronary, valvular, dysrhythmic/conduction disease, or cardiomyopathy. He also denies any history of diabetes mellitus, tobacco use, or family history of premature atherosclerotic disease. His ECG also revealed bradycardia, first-degree atrioventricular block, possible Wenckebach periodicity, and right bundle branch block, Allergies/Medications Allergies: Coded Allergies: No Known Allergies (04/06/18) Home Med List: Aspirin (Ecotrin*) 81 MG TABLET.DR 1 TAB PO DAILY HEART/BLOOD (Reported) Colchicine (Colcrys) 0.6 MG TABLET 1 TAB PO DAILY GOUT (Reported) Doxazosin Mesylate (Cardura) 4 MG TABLET 1 TAB PO DAILY BP (Reported) Febuxostat (Uloric) 80 MG TABLET 1 TAB PO DAILY URIC ACID (Reported) Fluticasone Propionate (Flonase Allergy Relief) 50 MCG/ACTUATION SPRAY.SUSP 1 SPRAY NASB DAILY SINUS (Reported) Furosemide 40 MG TABLET 1 TAB PO DAILY DIURETIC (Reported) Lisinopril/Hydrochlorothiazide (Lisinopril-Hctz 20-25 MG Tab) 20 MG-25 MG TABLET 1 TAB PO DAILY BP (Reported) Review of Systems Review of Systems: A 14 point system review was obtained was noncontributory, other than for the fact the patient wears glasses. Past History Travel History Traveled to [place] past 21 day No Medical History Blood Transfusion Hx: No Cardiovascular: hypertension, hyperlipidemia Musculoskeletal: gout Endocrine: obesity Surgical History Surgical History: non-contributory Psychosocial History Where Do You Live? Home Services at Home: None Smoking Status: Never Smoked ETOH Use: denies use Illicit Drug Use: denies illicit drug use Exam & Diagnostic Data Vital Signs and I&O Vital Signs Date Time Temp Pulse Resp B/P B/P Pulse O2 O2 Flow FiO2 Mean Ox Delivery Rate 04/07 0800 95 Room Air 04/07 0700 97.4 55 18 142/62 94 Room Air 04/06 2200 96.8 60 24 174/58 95 Room Air 04/06 2041 56 18 178/80 96 Room Air 04/06 1935 52 18 170/60 97 Room Air 04/06 1754 98.1 53 18 174/70 99 Room Air 04/06 1559 97 04/06 1538 98.7 67 18 154/59 100 Room Air Intake & Output 04/07 1600 04/07 0800 04/07 0000 04/06 1600 04/06 0800 04/06 0000 Intake Total 320 420 Output Total 400 Balance -80 420 Intake, IV 0 Intake, Oral 320 420 Number 1 1 Bowel Movements Output, Urine 400 Patient 376 lb 377 lb 385 lb Weight Weight Bed scale Bed scale Reported by Patient Measurement Method Physical Exam: Well-developed, morbidly obese elderly male in no acute distress. Vital signs: See above. HEENT: Normocephalic, atraumatic, EOMI, moist mucous membranes. Neck: No JVD, no bruits. Lungs: Clear to auscultation bilaterally. Heart: S1, S2 with no murmur, gallop, or rub appreciated. PMI not well felt. Abdomen: Soft, nontender, positive bowel sounds. Extremities: Trace bilateral lower extremity edema. Assessment/Plan Assessment/Plan 72-y-o-[id number]-m w/ a hx of morbid obesity, HTN, HLD, childhood asthma, & gout who presented to the ED w/ a c/o pressure-like, mild ("4/10"), nonradiating, SSCP w/ assoc mild diaphoresis & SOB while watching television at around noontime yesterday, 04/06/2018 that lasted approximately 20 minutes before spontaneously subsiding. His ECG also revealed evidence of bradycardia, first-degree atrioventricular block, probable Wenckebach periodicity, and right bundle branch block. Doxazosin can cause "arrhythmias", edema, and bradycardia (3-4%). Recommendations: * Telemetry admission, follow-up ECGs, follow-up troponins. * Place transcutaneous pacemaker pads. * Check Lyme titers, free T4, TSH, glycosylated hemoglobin A1c, etc. * Discontinue doxazosin. * Echocardiogram to assess for wall motion abnormalities, degree of left ventricular hypertrophy, left ventricular systolic/diastolic function, right ventricular function, estimated PA systolic pressure, etc. * Schedule for nuclear stress test in a.m. * Schedule for sleep study. This can be done on an outpatient basis. * DVT prophylaxis. Consult Acknowledgment - Thank you for your consult request.
[2018-04-07 16:00] VITALS: BP 138/58
--- NOTE | 2018-04-07 18:49 | Cons- Cardiology ---
General Information and HPI Consulting Request Date of Consult: 04/07/18 Requested By: Chuck LAZO,Erich Rios Reason for Consult: Type 1 second degree AV block (Wenckebach), RBBB Source of Information: patient, old records Exam Limitations: no limitations History of Present Illness: I was asked by Dr. Rios to see this patient in regards to type I second-degree AV block and right bundle branch block. To review this patient is a very pleasant 72-year-old man who has enjoyed reasonably good health. He does have a history of severe gout, asthma, hypertension, hyperlipidemia, and morbid obesity. He presented to the ER on 04/06/2018 yesterday with chest pain diaphoresis and shortness of breath. The symptoms lasted for 20 minutes but in retrospect over the past several months he has noted increasing dyspnea on exertion. Upon admission his EKG showed sinus rhythm with periods of second-degree AV block type I (Wenckebach). He also has right bundle branch block. All of his subsequent EKGs have shown similar patterns. He definitely does have sinus arrhythmia and thus the Wenckebach pattern is a bit uncharacteristic but I still do think this is second-degree type I block. So far he has had a chest x-ray that has been unrevealing. His TSH is normal. Lyme studies are negative. I was asked to see him regarding his conduction system disturbances i.e. second- degree AV block and right bundle branch block. Allergies/Medications Allergies: Coded Allergies: No Known Allergies (04/06/18) Home Med List: Aspirin (Ecotrin*) 81 MG TABLET.DR 1 TAB PO DAILY HEART/BLOOD (Reported) Colchicine (Colcrys) 0.6 MG TABLET 1 TAB PO DAILY GOUT (Reported) Doxazosin Mesylate (Cardura) 4 MG TABLET 1 TAB PO DAILY BP (Reported) Febuxostat (Uloric) 80 MG TABLET 1 TAB PO DAILY URIC ACID (Reported) Fluticasone Propionate (Flonase Allergy Relief) 50 MCG/ACTUATION SPRAY.SUSP 1 SPRAY NASB DAILY SINUS (Reported) Furosemide 40 MG TABLET 1 TAB PO DAILY DIURETIC (Reported) Lisinopril/Hydrochlorothiazide (Lisinopril-Hctz 20-25 MG Tab) 20 MG-25 MG TABLET 1 TAB PO DAILY BP (Reported) Current Medications: Current Medications Sig/Brittany Start time Last Medication Dose Route Stop Time Status Admin Acetaminophen 650 MG Q6P PRN 04/06 2045 AC PO Aspirin Buffered 81 MG DAILY 04/07 900 AC 04/07 PO 0936 Atropine Sulfate 0.5 MG Q 5 MINUTES X 3 DO.. 04/06 2100 AC IV Colchicine 600 MCG DAILY 04/07 900 AC 04/07 PO 0936 Doxazosin Mesylate 1 MG DAILY 04/07 900 DC 04/07 PO 0936 Enoxaparin Sodium 40 MG DAILY 04/07 900 AC 04/07 SC 0940 Fluticasone 2 SPRAY DAILY 04/07 900 AC Propionate SHAUNNA Furosemide 40 MG DAILY 04/07 900 AC 04/07 PO 0935 Hydrochlorothiazide 25 MG DAILY 04/07 900 AC 04/07 PO 0936 Lisinopril 20 MG DAILY 04/07 900 AC 04/07 PO 0533 Review of Systems Review of Systems: Constitutional: Negative for decreased appetite, weakness, POSITIVE FOR malaise/ fatigue, weight gain, NEGATIVE FOR weight loss HENT: Negative for congestion, hearing loss, hoarse voice, nosebleeds, sore throat, tinnitus Eyes: Negative for blurred vision, double vision, photophobia, redness, visual disturbances Cardiovascular: POSITIVE for chest pain, shortness of breath, dyspnea on exertion, NEGATIVE FOR irregular heartbeat/palpitations, swelling, near syncope, syncope, orthopnea, paroxysmal nocturnal dyspnea, claudication, cyanosis Respiratory: Negative for cough, hemoptysis, shortness of breath, snoring, sleep apnea/sleep disordered breathing, sputum production, wheezing Endocrine: Negative for cold intolerance, heat intolerance, missed menstrual periods Hematologic/Lymphatic: Negative for adenopathy, abnormal bleeding, easy bruisability Skin: Negative for flushing, itching, rashes, skin cancer/suspicious lesions Musculoskeletal: Negative for arthritis, back pain, joint swelling, muscle cramps, muscle weakness Gastrointestinal: Negative for abdominal pain, change in bowel habits, constipation, diarrhea, dysphagia, heartburn, hemorrhoids, melena, nausea, vomiting Genitourinary: Negative for urinary incontinence, dysuria, flank pain, frequency , hematuria, nocturia, urgency Neurological: Negative for excessive daytime sleepiness, dizziness, focal weakness, headaches, lightheadedness, numbness, paresthesias, seizures, tremors, vertigo Psychiatric/behavioral: Negative for depression, hallucinations, memory loss, substance abuse, suicidal ideas, thoughts of violence, insomnia, nervousness/ anxiety Allergic/Immunologic: Negative for environmental allergies ALL OTHER SYSTEMS REVIEWED AND ARE NEGATIVE Past History Travel History Traveled to [place] past 21 day No Medical History Blood Transfusion Hx: No Cardiovascular: hypertension, hyperlipidemia Musculoskeletal: gout Endocrine: obesity Surgical History Surgical History: non-contributory Psychosocial History Where Do You Live? Home Services at Home: None Smoking Status: Never Smoked ETOH Use: denies use Illicit Drug Use: denies illicit drug use Exam & Diagnostic Data Vital Signs and I&O Vital Signs Date Time Temp Pulse Resp B/P B/P Pulse O2 O2 Flow FiO2 Mean Ox Delivery Rate 04/07 1600 95 Room Air 04/07 1600 97.8 64 19 138/58 95 Room Air 04/07 1200 95 Room Air 04/07 0800 95 Room Air 04/07 0700 97.4 55 18 142/62 94 Room Air 04/06 2200 96.8 60 24 174/58 95 Room Air 04/06 2041 56 18 178/80 96 Room Air 04/06 1935 52 18 170/60 97 Room Air Intake & Output 04/07 1600 04/07 0800 04/07 0000 04/06 1600 04/06 0800 04/06 0000 Intake Total 720 320 420 Output Total 1001 400 Balance -281 -80 420 Intake, IV 0 Intake, Oral 720 320 420 Number 1 1 Bowel Movements Output, Stool 1 Output, Urine 1000 400 Patient 376 lb 377 lb 385 lb Weight Weight Bed scale Bed scale Reported by Patient Measurement Method Physical Exam: General/Constitutional: Oriented to person, place, and time. In no distress. Well-developed, well-nourished. Morbidly obese. Vital signs: see above. Head: Normocephalic/atraumatic Eyes: No xanthelasma or scleral icterus. Conjunctivae normal. Mouth: Moist mucous membranes without pallor or cyanosis Neck: Supple. No jugular venous distention, carotid bruits, thyromegaly Thorax/lungs/pulmonary: No chest deformity. Effort normal without respiratory distress. Lungs clear without wheezes or rales. Heart/Cardiovascular: Normal S1, S2 without murmurs, S3, or S4 Abdomen/GI: No distention, tenderness or masses Extremities: No cyanosis, clubbing, or edema Neuro: Alert and oriented to person, place, time. Grossly non-focal. Skin: Warm and dry. No diaphoresis. No major rashes. No erythema. No pallor or cyanosis. Psychiatric: Normal mood and affect, behavior appears normal. Diagnostic Data EKG Results As described in the history of present illness he has sinus rhythm with sinus arrhythmia and type I second-degree Wenckebach AV block as well as right bundle branch block. 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 He also has right bundle branch block but I do not think that he has type II heart block. In these patients the main determinant of pacemaker necessity is symptoms. His presenting symptoms do not seem to be consistent with his AV block although he has had some progressive decline in his level of functioning over the past few months. I do think ultimately he may end up needing a pacemaker but he needs an extensive workup prior. I would consider a CT angiogram as we cannot rule out pulmonary embolism. He has right bundle branch block, shortness of breath, SSCP and is very obese. The other advantage of the CT is would help us look for possible sarcoid lung disease or mediastinal disease as sarcoidosis could present in this fashion. In the meantime it certainly makes sense to obtain a stress test especially given his massive weight as opposed to proceeding directly with cardiac catheterization. Another thought I had on him as he is on HCTZ and Lasix. I am surprised that his potassium is normal but this should be watched. Finally Uloric has been associated with a higher incidence of cardiovascular events but I am not sure it should be changed; just pointing this out. An echocardiogram will obviously be useful to rule out structural heart disease. As outlined by Dr. Rios a sleep study should be performed. My bias would be to follow him along with serial Holters and if he has progression of his conduction system disease or does not feel back to himself in the near future then I do think a pacemaker will be indicated. Copies To: Erich Woods MD; Gabriel LAZO,Tin Pagan; Diane LAZO,Tin Sterling. Consult Acknowledgment - Thank you for your consult request.
--- NOTE | 2018-04-07 19:05 | ECHOCARDIOGRAM REPORT ---
RODCARLIE WOO Age: 72 : 1945 Gender: M Exam Date: 04/07/2018 09:59 Exam Location: [facility] Ht (in): 75 Wt (lb): 385 BSA: 3.12 BP: 174 / 58 Ordering Physician: Fernando Mccormcik MD Referring Physician: Fernando Mccormick MD Technologist: Severiano Paniagua [facility] Room Number: 108-1 Indications: Cardiac arrhythmia, unspecified Rhythm: Sinus Technical Quality: Fair FINDINGS Left Ventricle Normal size left ventricle. Moderate concentric left ventricular hypertrophy. Mildly reduced global left ventricular systolic function. Mildly reduced left ventricular ejection fraction estimated at 50%. "pseudonormal" filling pattern of the left ventricle for age (stage 2 diastolic dysfunction). Right Ventricle Normal right ventricular size and function. Right Atrium Normal right atrial size. Left Atrium Normal left atrial size. Mitral Valve Structurally normal mitral valve. Trace mitral regurgitation. Aortic Valve Trileaflet aortic valve. Mild aortic sclerosis. No aortic stenosis. Mild aortic regurgitation. Tricuspid Valve Structurally normal tricuspid valve. Trace tricuspid regurgitation. Unable to estimate the right ventricular systolic pressure. Pulmonic Valve Pulmonic valve not well visualized, grossly normal. Trace pulmonic regurgitation. Pericardium No pericardial effusion. Great Vessels Mild aortic dilatation at the level of the sinuses of valsalva (root). Mildly dilated proximal ascending aorta (tube). Normal size inferior vena cava. CONCLUSIONS Normal size left ventricle. Moderate concentric left ventricular hypertrophy. Mildly reduced global left ventricular systolic function. Mildly reduced left ventricular ejection fraction estimated at 50%. "pseudonormal" filling pattern of the left ventricle for age (stage 2 diastolic dysfunction). Normal right ventricular size and function. Normal atrial size. Trace mitral regurgitation. Mild aortic regurgitation. Trace tricuspid regurgitation. Unable to estimate the right ventricular systolic pressure. Trace pulmonic regurgitation. Mild aortic dilatation at the level of the sinuses of valsalva (root). Mildly dilated proximal ascending aorta (tube). Tin Rios M.D. (Electronically Signed) Final Date: 07 April 2018 18:59 MEASUREMENTS (Male / Female) Normal Values 2D ECHO LV Diastolic Diameter PLAX 5.3 cm 4.2 - 5.9 / 3.9 - 5.3 cm LV Systolic Diameter PLAX 3.9 cm 2.1 - 4.0 cm LV Fractional Shortening PLAX 26.4 % 25 - 46 % LV Ejection Fraction 2D Teich 51.3 % IVS Diastolic Thickness 1.4 cm LVPW Diastolic Thickness 1.4 cm LV Relative Wall Thickness 0.5 RV Internal Dim ED PLAX 3.7 cm 1.9 - 3.8 cm LVOT Diameter 2.2 cm Aortic Root Diameter 3.9 cm LA Systolic Diameter LX 3.8 cm 3.0 - 4.0 / 2.7 - 3.8 cm Ascending Aorta Diameter 3.6 cm DOPPLER AV Peak Velocity 168.0 cm/s AV Peak Gradient 11.3 mmHg AV Mean Velocity 120.0 cm/s AV Mean Gradient 7.0 mmHg AV Velocity Time Integral 36.2 cm AI Deceleration Stewart 301.0 cm/s AI Peak Velocity 389.0 cm/s AI Pressure Half Time 379.0 ms AI Peak Gradient 60.5 mmHg LVOT Peak Velocity 115.0 cm/s LVOT Peak Gradient 5.3 mmHg LVOT Mean Velocity 60.9 cm/s LVOT Mean Gradient 2.0 mmHg LVOT Velocity Time Integral 25.3 cm LVOT Stroke Volume 96.2 cm AV Area Cont Eq vti 2.7 cm AV Area Cont Eq pk 2.6 cm MV Peak Velocity 97.9 cm/s MV Peak Gradient 3.8 mmHg MV Mean Velocity 71.9 cm/s MV Mean Gradient 2.0 mmHg Mitral E Point Velocity 96.0 cm/s Mitral A Point Velocity 72.3 cm/s Mitral E to A Ratio 1.3 MV PHT Velocity 102.0 cm/s MV Deceleration Stewart 239.0 cm/s MV Pressure Half Time 128.0 ms MV Area PHT 1.7 cm MV Deceleration Time 236.0 ms PV Peak Velocity 77.2 cm/s PV Peak Gradient 2.4 mmHg PV Mean Velocity 56.5 cm/s PV Mean Gradient 1.0 mmHg PV Velocity Time Integral 17.6 cm LV E' Lateral Velocity 15.5 cm/s Mitral E to LV E' Lateral Ratio 6.2 LV E' Septal Velocity 6.4 cm/s Mitral E to LV E' Septal Ratio 14.9
[2018-04-08] VITALS: BP 128/64
[2018-04-08 05:39] LABS: ABSOLUTE BASOPHIL COUNT 0 /CUMM (0.0-0.2); ABSOLUTE EOSINOPHIL COUNT 0.3 /CUMM (0.0-0.7); ABSOLUTE GRANULOCYTE CT 4.5 /CUMM (1.4-6.5); ABSOLUTE LYMPH COUNT 1.6 /CUMM (1.2-3.4); ABSOLUTE MONOCYTE COUNT 0.6 /CUMM (0.10-0.60); BASOPHIL % 0.3 % (0.0-2.0); EOSINOPHIL % 4.1 % (0-5); GRANULOCYTE % 64.1 % (42.2-75.2); HEMATOCRIT 41.2 % (42-52); MEAN CORPUSCULAR HGB 27.7 PG (27.0-31.0); MEAN CORPUSCULAR HGB CONC 32.9 G/DL (33.0-37.0); MEAN CORPUSCULAR VOLUME 84.3 FL (80.0-94.0); MEAN PLATELET VOLUME 8.8 FL (7.4-10.4); PLATELET COUNT 200 /CUMM (130-400); RBC DISTRIBUTION WIDTH 15.8 % (11.5-14.5); RED BLOOD CELL CT 4.89 /CUMM (4.70-6.10)
[2018-04-08 08:00] VITALS: BP 160/58
--- NOTE | 2018-04-08 08:34 | PN- Housestaff ---
Krish Marley 04/08/18 0834: Subjective Follow-up For: chest pain bradycardia, conduction disorder Complaints: no complaints Subjective: Pt seen and examined at bedside this am. He states feeling well, with no complains whatsoever. His B/L LE edema is much less prominent today compared to yesterday. He continued to have pauses overnight, with HR going down to the 30s. He remains asymptomatic. Left upper thigh rash noted, pt states it comes and goes depending on the time he spends sitting down. No other complaints. Review of Systems Constitutional: Reports: no symptoms. Objective Last 24 Hrs of Vital Signs/I&O Vital Signs Date Time Temp Pulse Resp B/P B/P Pulse O2 O2 Flow FiO2 Mean Ox Delivery Rate 04/08 0833 46 151/58 04/08 0800 97.0 44 22 160/58 95 Room Air 04/08 0000 97.7 54 16 128/64 94 Room Air 04/07 1600 95 Room Air 04/07 1600 97.8 64 19 138/58 95 Room Air 04/07 1200 95 Room Air Intake & Output 04/08 1600 04/08 0800 04/08 0000 Intake Total 720 Output Total 500 1150 Balance -500 -430 Intake, Oral 720 Number 1 1 Bowel Movements Output, Urine 500 1150 Physical Exam General Appearance: Alert, Oriented X3, Cooperative, No Acute Distress Skin: nonpruritic rash noted on L thigh extending to the inguinal fold, scattered telangectasias noted on the face Skin Temp/Moisture Exam: Warm/Dry Sepsis Skin Exam (color): Normal for Ethnicity HEENT: Atraumatic, PERRLA Neck: Supple, No JVD, No LAD Cardiovascular: Normal S1, Normal S2, No Murmurs, bradycardic, pauses noted on telemetry Lungs: Clear to Auscultation, Normal Air Movement Abdomen: Normal Bowel Sounds, Soft, No Tenderness, No Masses, abdominal obesity Neurological: Normal Speech Extremities: No Clubbing, No Cyanosis, No Edema Vascular: Normal Pulses Current Medications: Current Medications Sig/Brittany Start time Last Medication Dose Route Stop Time Status Admin Acetaminophen 650 MG Q6P PRN 04/06 2045 AC PO Aspirin Buffered 81 MG DAILY 04/07 09 AC 04/08 PO 0833 Atropine Sulfate 0.5 MG Q 5 MINUTES X 3 DO.. 04/06 2100 AC IV Colchicine 600 MCG DAILY 04/07 900 AC 04/08 PO 33 Dipyridamole 60 MG ONE ONE 04/08 1000 AC Dextrose/Water 28 ML IV 04/08 1001 Doxazosin Mesylate 1 MG DAILY 04/07 900 DC 04/07 PO 0936 Enoxaparin Sodium 40 MG DAILY 04/07 900 AC 04/08 SC 0833 Fluticasone 2 SPRAY DAILY 04/07 900 AC Propionate SHAUNNA Furosemide 40 MG DAILY 04/07 900 AC 04/08 PO 0833 Hydrochlorothiazide 25 MG DAILY 04/07 900 AC 04/08 PO 0833 Lisinopril 20 MG DAILY 04/07 900 AC 04/08 PO 0833 Nystatin 1 HUANG BID 04/08 900 UNVr TOP Last 24 Hrs of Lab/Kartik Results Last 24 Hrs of Labs/Mics: Laboratory Tests 04/08/18 0600: Anion Gap 11, Estimated GFR > 60, BUN/Creatinine Ratio 27.3 H, Magnesium 2.0 04/08/18 0525: CBC w Diff NO MAN DIFF REQ, RBC 4.89, MCV 84.3, MCH 27.7, MCHC 32.9 L, RDW 15.8 H, MPV 8.8, Gran % 64.1, Lymphocytes % 23.3, Monocytes % 8.2, Eosinophils % 4.1 , Basophils % 0.3, Absolute Granulocytes 4.5, Absolute Lymphocytes 1.6, Absolute Monocytes 0.6, Absolute Eosinophils 0.3, Absolute Basophils 0 Assessment/Plan Assessment: Mr. Dang is a 72 y/o M with a PMH of hypertension, hyperlipidemia, gout, and morbid obesity came to the ED c/o chest pain and SOB. As per the pt, this pain was not severe and nonradiating that appeared during rest with complete resolution without any intervention. SOB has however been proggresive over the past couple of months, especifically during exertion. EKG on ED showed a junctional bradycardia, sinus arrest and retrograde P waves with complete right bundle branch block and first-degree AV block. He was admitted to the ICU as a telemetry hold for close monitoring of abnormal rhythm and r/o ACS. 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 Patient states not having a provider network mgr; his EKG does show a RBBB, however his baseline is unknown. EKG morphology showing wenchebach phenomenon; residential monitor does show periods bradycardia in the 30s overnight. He has been consistently bradycardic though asymptomatic since admission, atropine is at the bedside with pacer pads on. His hemodynamic status has been stable so far. Cardiology has been consulted, with the plan of obtaining nuclear stress testing in the AM. Troponin have so far been negative: an acute compromise of cardiac muscle is less likely. His home medications have been continued, except for his doxazosin which in rare cases can trigger an arrhythmia. Lyme titers are negative. Echocardiogram did show a slightly decreased EF @ 50% - Electrophysiology has seen the patient and recommendations are being followed. -f/u stress test results -f/u CTA -continue lisinopril/furosemide/hctz/ASA -neg lyme titers #Gout Home meds have been continued. No episodes of acute joint pain overnight. -Continue colchicine Problem List: 1. Morbid obesity 2. Hyperlipidemia 3. Sinus bradycardia 4. Chest pain at rest Pain Ratin Pain Location: n/a Pain Goal: Pain 4 or less Pain Plan: n/a Tomorrow's Labs & Rationales: cbc bep, mag Junior LAZO,[facility] 04/08/18 1155: Attending MD Review Statement Attending Statement Attending MD Statement: examined this patient, discuss w/resident/PA/STATION INSTALLER, agreed w/resident/PA/STATION INSTALLER, reviewed EMR data (avail), discussed with nursing, discussed with case mgmt, reviewed images, amended to note Attending Assessment/Plan: Patient seen and examined, she denies any complaints. No further chest pains. He was seen by Dr. Contreras yesterday who is an case assistant. 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 He recommends ultimate pacemaker but not at this time. Patient will likely need Holter monitor and if condition becomes worse or he bnecomes symptomatic, then he will need a pacemaker at some point in future. Patient currently scheduled for nuclear stress test and Dr. Contreras also recommended getting a chest CT angio to r/u PE. Vital Signs Date Time Temp Pulse Resp B/P B/P Pulse O2 O2 Flow FiO2 Mean Ox Delivery Rate 04/08 0833 46 151/58 04/08 0800 97.0 44 22 160/58 95 Room Air 04/08 0000 97.7 54 16 128/64 94 Room Air 04/07 1600 95 Room Air 04/07 1600 97.8 64 19 138/58 95 Room Air 04/07 1200 95 Room Air on exam; aox3, nad. obese. cv; s1, s2, rrr resp; clear abd; soft, nt, bs+ ext; 2+ edema Laboratory Tests 04/08 04/08 0600 0525 Chemistry Sodium (137 - 145 mmol/L) 142 Potassium (3.5 - 5.1 mmol/L) 4.2 Chloride (98 - 107 mmol/L) 105 Carbon Dioxide (22 - 30 mmol/L) 27 Anion Gap (5 - 16) 11 BUN (9 - 20 mg/dL) 30 H Creatinine (0.7 - 1.2 mg/dL) 1.1 Estimated GFR (>60 ml/min) > 60 BUN/Creatinine Ratio (7 - 25 %) 27.3 H Magnesium (1.6 - 2.3 mg/dL) 2.0 Hematology CBC w Diff NO MAN DIFF REQ WBC (4.8 - 10.8 /CUMM) 7.0 RBC (4.70 - 6.10 /CUMM) 4.89 Hgb (14.0 - 18.0 G/DL) 13.6 L Hct (42 - 52 %) 41.2 L MCV (80.0 - 94.0 FL) 84.3 MCH (27.0 - 31.0 PG) 27.7 MCHC (33.0 - 37.0 G/DL) 32.9 L RDW (11.5 - 14.5 %) 15.8 H Plt Count (130 - 400 /CUMM) 200 MPV (7.4 - 10.4 FL) 8.8 Gran % (42.2 - 75.2 %) 64.1 Lymphocytes % (20.5 - 51.1 %) 23.3 Monocytes % (1.7 - 9.3 %) 8.2 Eosinophils % (0 - 5 %) 4.1 Basophils % (0.0 - 2.0 %) 0.3 Absolute Granulocytes (1.4 - 6.5 /CUMM) 4.5 Absolute Lymphocytes (1.2 - 3.4 /CUMM) 1.6 Absolute Monocytes (0.10 - 0.60 /CUMM) 0.6 Absolute Eosinophils (0.0 - 0.7 /CUMM) 0.3 Absolute Basophils (0.0 - 0.2 /CUMM) 0 A/P: 72 y/o M with pmh sig for HTN, Obesity, HLP, and gout admitted with chest pain. Trops x 3 neg. Pt having some Pauses on tele monitor. He was seen by Dr. Contreras yesterday who is an case assistant. 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 He recommends ultimate pacemaker but not at this time. Patient will likely need Holter monitor and if condition becomes worse or he bnecomes symptomatic, then he will need a pacemaker at some point in future. Patient currently scheduled for nuclear stress test and Dr. Contreras also recommended getting a chest CT angio to r/u PE. Please follow-up on the results of nuclear stress test. Please order chest CTA to rule out pulmonary embolism. Please follow further cardiology recommendations. Disposition planning will be pending nuclear stress test and chest CT results. Continue current management. Continue to monitor on tele. DVT px; lovenox.
[2018-04-08 16:00] VITALS: BP 140/58
--- NOTE | 2018-04-08 16:38 | CT SCAN REPORT ---
EXAMINATION: CT CHEST PE STUDY CLINICAL INFORMATION: Right bundle branch block. Bradycardia. Rule out PE. COMPARISON: Chest x-ray dated 04/06/2018. TECHNIQUE: Prior to contrast administration, localization images were obtained. After the administration of 95 mL of intravenous Optiray 320, multidetector CT volume acquisition of the chest was performed. 2-D postprocessing was performed with multiplanar reconstructions and MIP images obtained at the acquisition workstation under concurrent physician supervision. DLP: 834.54 mGy-cm. FINDINGS: Pulmonary arteries: The bolus timing on this study was acceptable for visualization of the pulmonary arterial tree. There are no intraluminal pulmonary arterial filling defects present to suggest pulmonary embolism in the main pulmonary artery, right and left main pulmonary artery, lobar and segmental branches. Lungs: There is a 2 mm solid noncalcified right upper lobe nodule (series 2, image 138) and a 2 mm subpleural left lower lobe nodule (series 2, image 291), both of doubtful clinical significance. Some patchy reticular and groundglass opacities seen in both lower lobes and in the inferior lingula, most likely representing atelectatic changes. No pleural effusion or pneumothorax. The central airways are patent. Aorta and heart: The heart is normal in size. The aorta is normal. There is no pericardial effusion. Severe coronary artery calcifications are noted. Lymphatic structures: There is no lymphadenopathy. Upper abdomen: Post cholecystectomy alexy are seen in the gallbladder fossa. Limited evaluation of the upper abdominal viscera demonstrates no focal abnormality. Bones: Multilevel mild to moderate vertebral spondylosis is seen throughout the thoracic spine. No suspicious bone findings. IMPRESSION: 1. No evidence of pulmonary embolism. 2. Incidental 2 mm solid noncalcified nodules in the right upper lobe and left lower lobe, of doubtful clinical significance. In the low risk setting, no additional follow-up is required. In the high-risk setting, consider optional CT scan follow-up in 12 months. 3. Severe coronary artery calcifications. 4. Status post cholecystectomy. VTE: Negative
--- NOTE | 2018-04-08 17:57 | PN- Cardiology ---
Subjective Subjective: No complaints. Denies any chest discomfort, palpitations, or shortness of breath. Telemetry reveals sinus rhythm second-degree heart block, Mobitz type I, and RBBB. Objective Vital Signs and I&Os Vital Signs Date Time Temp Pulse Resp B/P B/P Pulse O2 O2 Flow FiO2 Mean Ox Delivery Rate 04/08 1600 97.7 72 22 140/58 96 Room Air 04/08 0833 46 151/58 04/08 0800 97.0 44 22 160/58 95 Room Air 04/08 0000 97.7 54 16 128/64 94 Room Air Intake & Output 04/08 1600 04/08 0800 04/08 0000 04/07 1600 04/07 0804/07 0000 Intake Total 390 720 720 320 420 Output Total 4874 187 0287 1001 400 Balance -860 -500 -430 -281 -80 420 Intake, IV 0 0 Intake, Oral 390 720 720 320 420 Number 1 1 1 1 1 Bowel Movements Output, Stool 1 Output, Urine 5246 404 3513 1000 400 Patient 376 lb 377 lb Weight Weight Bed scale Bed scale Measurement Method Physical Exam: Well-developed, overweight elderly male in no acute distress. Vital signs: See above. Neck: No JVD, no bruits. Lungs: Clear to auscultation. Heart: S1, S2 with grade 2/6 systolic murmur. Abdomen: Soft, nontender, positive bowel sounds. Extremities: Trace edema. Current Medications: Current Medications Sig/Brittany Start time Last Medication Dose Route Stop Time Status Admin Acetaminophen 650 MG Q6P PRN 04/065 AC PO Aspirin Buffered 81 MG DAILY 04/07 900 AC 04/08 PO 33 Atropine Sulfate 0.5 MG Q 5 MINUTES X 3 DO.. 04/06 2100 AC IV Colchicine 600 MCG DAILY 04/07 900 AC 04/08 PO 0833 Dipyridamole 60 MG ONE ONE 04/08 1000 DC Dextrose/Water 28 ML IV 04/08 1001 Enoxaparin Sodium 40 MG DAILY 04/07 900 AC 04/08 SC 0833 Fluticasone 2 SPRAY DAILY NEEDED PRN 04/09 900 AC Propionate SHAUNNA Fluticasone 2 SPRAY DAILY 04/07 900 DC Propionate SHAUNNA Furosemide 40 MG DAILY 04/07 900 AC 04/08 PO 0833 Hydrochlorothiazide 25 MG DAILY 04/07 900 AC 04/08 PO 0833 Lisinopril 20 MG DAILY 04/07 09 AC 04/08 PO 0833 Nystatin 1 HUANG BID 04/08 09 AC 04/08 [facility] 0940 Results Last 48 Hrs of Labs/Mics: Laboratory Tests 04/08/18 0600: Anion Gap 11, Estimated GFR > 60, BUN/Creatinine Ratio 27.3 H, Magnesium 2.0 04/08/18 0525: CBC w Diff NO MAN DIFF REQ, RBC 4.89, MCV 84.3, MCH 27.7, MCHC 32.9 L, RDW 15.8 H, MPV 8.8, Gran % 64.1, Lymphocytes % 23.3, Monocytes % 8.2, Eosinophils % 4.1 , Basophils % 0.3, Absolute Granulocytes 4.5, Absolute Lymphocytes 1.6, Absolute Monocytes 0.6, Absolute Eosinophils 0.3, Absolute Basophils 0 04/07/18 0520: Anion Gap 10, Estimated GFR > 60, BUN/Creatinine Ratio 31.0 H, Magnesium 2.1, CBC w Diff NO MAN DIFF REQ, RBC 4.87, MCV 84.4, MCH 27.9, MCHC 33.1, RDW 15.6 H , MPV 8.9, Gran % 67.3, Lymphocytes % 20.2 L, Monocytes % 7.1, Eosinophils % 4.7, Basophils % 0.7, Absolute Granulocytes 4.5, Absolute Lymphocytes 1.4, Absolute Monocytes 0.5, Absolute Eosinophils 0.3, Absolute Basophils 0 04/07/18 0030: Troponin I < 0.01 04/06/18 1920: Troponin I < 0.01 Microbiology 04/06 2200 UPPER RESP: Surveillance Culture - COMP 04/06 2200 GI: Surveillance Culture - COMP Recent Imaging Studies: Chest CTA 04/08/2018: 1. No evidence of pulmonary embolism. 2. Incidental 2 mm solid noncalcified nodules in the right upper lobe and left lower lobe, of doubtful clinical significance. In the low risk setting, no additional follow-up is required. In the high-risk setting, consider optional CT scan follow-up in 12 months. 3. Severe coronary artery calcifications. 4. Status post cholecystectomy. Assessment/Plan Assessment/Plan [id number] w/ a hx of morbid obesity, HTN, HLD, childhood asthma, & gout who presented to the ED w/ a c/o pressure-like, mild ("4/10"), nonradiating, SSCP w/ assoc mild diaphoresis & SOB while watching television at around noontime on 04/06/2018 that lasted approximately 20 minutes before spontaneously subsiding. 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 His Lyme titer was negative. Recommendations: * Continue on telemetry. In ICU as telemetry hold. * The rest portion of the stress test will be performed tomorrow morning. * Schedule for sleep study. This can be done on an outpatient basis. * DVT prophylaxis. Continue telemetry? Yes
[2018-04-09] VITALS: BP 144/60
[2018-04-09 04:00] VITALS: BP 138/60
[2018-04-09 05:26] LABS: ABSOLUTE BASOPHIL COUNT 0 /CUMM (0.0-0.2); ABSOLUTE EOSINOPHIL COUNT 0.3 /CUMM (0.0-0.7); ABSOLUTE LYMPH COUNT 1.6 /CUMM (1.2-3.4); ABSOLUTE MONOCYTE COUNT 0.6 /CUMM (0.10-0.60); BASOPHIL % 0.5 % (0.0-2.0); EOSINOPHIL % 3.4 % (0-5); GRANULOCYTE % 66.9 % (42.2-75.2); HEMATOCRIT 40.1 % (42-52); MEAN CORPUSCULAR HGB 27.7 PG (27.0-31.0); MEAN CORPUSCULAR HGB CONC 32.8 G/DL (33.0-37.0); MEAN CORPUSCULAR VOLUME 84.4 FL (80.0-94.0); MEAN PLATELET VOLUME 9.2 FL (7.4-10.4); PLATELET COUNT 191 /CUMM (130-400); RBC DISTRIBUTION WIDTH 15.6 % (11.5-14.5); RED BLOOD CELL CT 4.74 /CUMM (4.70-6.10); WHITE BLOOD CELL COUNT 7.5 /CUMM (4.8-10.8)
[2018-04-09 08:00] VITALS: BP 140/70
--- NOTE | 2018-04-09 08:43 | PN- Housestaff ---
Krish Marley 04/09/18 0840: Subjective Follow-up For: Bradycardia Subjective: Pt seen and examined this morning. Lowest HR overnight was in the 30s, though he remains asymptomatic. Scheduled for 2nd part of stress test this am. No other acute complaints Review of Systems Constitutional: Reports: no symptoms. Objective Last 24 Hrs of Vital Signs/I&O Vital Signs Date Time Temp Pulse Resp B/P B/P Pulse O2 O2 Flow FiO2 Mean Ox Delivery Rate 04/09 0932 66 150/80 04/09 0800 97.9 46 18 140/70 95 Room Air 04/09 0400 97.8 49 16 138/60 96 Room Air 04/09 0000 96 Room Air 04/09 0000 98.6 44 16 144/60 96 Room Air 04/08 2155 Room Air 04/08 1600 97.7 72 22 140/58 96 Room Air Intake & Output 04/09 1600 04/09 0800 04/09 0000 Intake Total 240 Output Total 500 600 Balance -500 -360 Intake, Oral 240 Number 1 1 Bowel Movements Output, Urine 500 600 Physical Exam General Appearance: Alert, Oriented X3, Cooperative, No Acute Distress HEENT: Atraumatic, EOMI Neck: Supple, No JVD, No LAD Lungs: Clear to Auscultation, Normal Air Movement Abdomen: Normal Bowel Sounds, Soft, No Tenderness, abdominal obesity Neurological: Normal Speech, Cranial Nerves 3-12 NL Extremities: No Clubbing, No Cyanosis, 2+ LE Edema b/l Vascular: Normal Pulses Current Medications: Current Medications Sig/Brittany Start time Last Medication Dose Route Stop Time Status Admin Acetaminophen 650 MG Q6P PRN 04/06 2045 AC PO Aspirin Buffered 81 MG DAILY 04/07 900 AC 04/09 PO 0931 Atropine Sulfate 0.5 MG Q 5 MINUTES X 3 DO.. 04/06 2100 AC IV Colchicine 600 MCG DAILY 04/07 900 AC 04/08 PO 0833 Enoxaparin Sodium 40 MG DAILY 04/07 900 AC 04/09 SC 0931 Fluticasone 2 SPRAY DAILY NEEDED PRN 04/09 900 AC Propionate SHAUNNA Furosemide 40 MG DAILY 04/07 900 AC 04/09 PO 0931 Hydrochlorothiazide 25 MG DAILY 04/07 900 AC 04/09 PO 0931 Lisinopril 20 MG DAILY 04/07 900 AC 04/09 PO 0932 Magnesium Oxide 400 MG ONE ONE 04/09 0715 DC 04/09 PO 04/09 0716 0930 Nystatin 1 HUANG BID 04/08 0900 AC 04/09 TOP 0931 Potassium Chloride 40 MEQ ONCE ONE 04/09 0715 DC 04/09 PO 04/09 0716 0930 Last 24 Hrs of Lab/Kartik Results Last 24 Hrs of Labs/Mics: Laboratory Tests 04/09/18 0550: Anion Gap 11, Estimated GFR > 60, BUN/Creatinine Ratio 26.4 H, Magnesium 1.9 04/09/18 0445: CBC w Diff NO MAN DIFF REQ, RBC 4.74, MCV 84.4, MCH 27.7, MCHC 32.8 L, RDW 15.6 H, MPV 9.2, Gran % 66.9, Lymphocytes % 21.8, Monocytes % 7.4, Eosinophils % 3.4 , Basophils % 0.5, Absolute Granulocytes 5.0, Absolute Lymphocytes 1.6, Absolute Monocytes 0.6, Absolute Eosinophils 0.3, Absolute Basophils 0 Orders ECHO Findings: SERVICE DATE: 04/07/ EXAM TYPE: CARD - ECHO (COMPLETE) W/CONTRAST CARLIE DANG Age: 72 : 1945 Gender: M Exam Location: [place] [facility] Ht (in): 75 Wt (lb): 385 BSA: 3.12 BP: 174 / 58 Ordering Physician: Fernando Mccormick MD Referring Physician: Fernando Mccormick MD Technologist: Severiano Paniagua GETACHEW Room Number: [id number] Indications: Cardiac arrhythmia, unspecified Rhythm: Sinus Technical Quality: Fair FINDINGS Left Ventricle Normal size left ventricle. Moderate concentric left ventricular hypertrophy. Mildly reduced global left ventricular systolic function. Mildly reduced left ventricular ejection fraction estimated at 50%. "pseudonormal" filling pattern of the left ventricle for age (stage 2 diastolic dysfunction). Right Ventricle Normal right ventricular size and function. Right Atrium Normal right atrial size. Left Atrium Normal left atrial size. Mitral Valve Structurally normal mitral valve. Trace mitral regurgitation. Aortic Valve Trileaflet aortic valve. Mild aortic sclerosis. No aortic stenosis. Mild aortic regurgitation. Tricuspid Valve Structurally normal tricuspid valve. Trace tricuspid regurgitation. Unable to estimate the right ventricular systolic pressure. Pulmonic Valve Pulmonic valve not well visualized, grossly normal. Trace pulmonic regurgitation. Pericardium No pericardial effusion. Great Vessels Mild aortic dilatation at the level of the sinuses of valsalva (root). Mildly dilated proximal ascending aorta (tube). Normal size inferior vena cava. CONCLUSIONS Normal size left ventricle. Moderate concentric left ventricular hypertrophy. Mildly reduced global left ventricular systolic function. Mildly reduced left ventricular ejection fraction estimated at 50%. "pseudonormal" filling pattern of the left ventricle for age (stage 2 diastolic dysfunction). Normal right ventricular size and function. Normal atrial size. Trace mitral regurgitation. Mild aortic regurgitation. Trace tricuspid regurgitation. Unable to estimate the right ventricular systolic pressure. Trace pulmonic regurgitation. Mild aortic dilatation at the level of the sinuses of valsalva (root). Mildly dilated proximal ascending aorta (tube). Tin Rios M.D. (Electronically Signed) Final Date: 07 April 2018 18:59 MEASUREMENTS (Male / Female) Normal Values 2D ECHO LV Diastolic Diameter PLAX 5.3 cm 4.2 - 5.9 / 3.9 - 5.3 cm LV Systolic Diameter PLAX 3.9 cm 2.1 - 4.0 cm LV Fractional Shortening PLAX 26.4 % 25 - 46 % LV Ejection Fraction 2D Teich 51.3 % IVS Diastolic Thickness 1.4 cm LVPW Diastolic Thickness 1.4 cm LV Relative Wall Thickness 0.5 RV Internal Dim ED PLAX 3.7 cm 1.9 - 3.8 cm LVOT Diameter 2.2 cm Aortic Root Diameter 3.9 cm LA Systolic Diameter LX 3.8 cm 3.0 - 4.0 / 2.7 - 3.8 cm Ascending Aorta Diameter 3.6 cm DOPPLER AV Peak Velocity 168.0 cm/s AV Peak Gradient 11.3 mmHg AV Mean Velocity 120.0 cm/s AV Mean Gradient 7.0 mmHg AV Velocity Time Integral 36.2 cm AI Deceleration [place] 301.0 cm/s AI Peak Velocity 389.0 cm/s AI Pressure Half Time 379.0 ms AI Peak Gradient 60.5 mmHg LVOT Peak Velocity 115.0 cm/s LVOT Peak Gradient 5.3 mmHg LVOT Mean Velocity 60.9 cm/s LVOT Mean Gradient 2.0 mmHg LVOT Velocity Time Integral 25.3 cm LVOT Stroke Volume 96.2 cm AV Area Cont Eq vti 2.7 cm AV Area Cont Eq pk 2.6 cm MV Peak Velocity 97.9 cm/s MV Peak Gradient 3.8 mmHg MV Mean Velocity 71.9 cm/s MV Mean Gradient 2.0 mmHg Mitral E Point Velocity 96.0 cm/s Mitral A Point Velocity 72.3 cm/s Mitral E to A Ratio 1.3 MV PHT Velocity 102.0 cm/s MV Deceleration [place] 239.0 cm/s MV Pressure Half Time 128.0 ms MV Area PHT 1.7 cm MV Deceleration Time 236.0 ms PV Peak Velocity 77.2 cm/s PV Peak Gradient 2.4 mmHg PV Mean Velocity 56.5 cm/s PV Mean Gradient 1.0 mmHg PV Velocity Time Integral 17.6 cm LV E' Lateral Velocity 15.5 cm/s Mitral E to LV E' Lateral Ratio 6.2 LV E' Septal Velocity 6.4 cm/s Mitral E to LV E' Septal Ratio 14.9 Radiology Findings: SERVICE DATE: 04/08/ EXAM TYPE: CAT - CTA CHEST-PULMONARY EMBOLISM EXAMINATION: CT CHEST PE STUDY CLINICAL INFORMATION: Right bundle branch block. Bradycardia. Rule out PE. COMPARISON: Chest x-ray dated 04/06/2018. TECHNIQUE: Prior to contrast administration, localization images were obtained. After the administration of 95 mL of intravenous Optiray 320, multidetector CT volume acquisition of the chest was performed. 2-D postprocessing was performed with multiplanar reconstructions and MIP images obtained at the acquisition workstation under concurrent physician supervision. DLP: 834.54 mGy-cm. FINDINGS: Pulmonary arteries: The bolus timing on this study was acceptable for visualization of the pulmonary arterial tree. There are no intraluminal pulmonary arterial filling defects present to suggest pulmonary embolism in the main pulmonary artery, right and left main pulmonary artery, lobar and segmental branches. Lungs: There is a 2 mm solid noncalcified right upper lobe nodule (series 2, image 138) and a 2 mm subpleural left lower lobe nodule (series 2, image 291), both of doubtful clinical significance. Some patchy reticular and groundglass opacities seen in both lower lobes and in the inferior lingula, most likely representing atelectatic changes. No pleural effusion or pneumothorax. The central airways are patent. Aorta and heart: The heart is normal in size. The aorta is normal. There is no pericardial effusion. Severe coronary artery calcifications are noted. Lymphatic structures: There is no lymphadenopathy. Upper abdomen: Post cholecystectomy alexy are seen in the gallbladder fossa. Limited evaluation of the upper abdominal viscera demonstrates no focal abnormality. Bones: Multilevel mild to moderate vertebral spondylosis is seen throughout the thoracic spine. No suspicious bone findings. IMPRESSION: 1. No evidence of pulmonary embolism. 2. Incidental 2 mm solid noncalcified nodules in the right upper lobe and left lower lobe, of doubtful clinical significance. In the low risk setting, no additional follow-up is required. In the high-risk setting, consider optional CT scan follow-up in 12 months. 3. Severe coronary artery calcifications. 4. Status post cholecystectomy. VTE: Negative Assessment/Plan Assessment: Mr. Dang is a 72 y/o M with a PMH of hypertension, hyperlipidemia, gout, and morbid obesity came to the ED c/o chest pain and SOB. As per the pt, this pain was not severe and nonradiating that appeared during rest with complete resolution without any intervention. SOB has however been proggresive over the past couple of months, especifically during exertion. EKG on ED showed a junctional bradycardia, sinus arrest and retrograde P waves with complete right bundle branch block and first-degree AV block. He was admitted to the ICU as a telemetry hold for close monitoring of abnormal rhythm and r/o ACS. IMPRESSION #Bradycardia due to conductive disease #Self-resolving chest pain at rest with SOB and diaphoresis, p/b angina #Gout #Hyperlipidemia #Hypertension #Morbid Obesity #Self-resolving chest pain at rest with SOB and diaphoresis, p/b angina // Bradycardia due to conductive disease Patient's cardiac history and particular presentation is of high concern for underlying CAD. 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 He has been consistently bradycardic though asymptomatic since admission, atropine is at the bedside with pacer pads on. His hemodynamic status has been stable so far. Cardiology has been consulted. Troponin have been negative: an acute compromise of cardiac muscle is less likely. His home medications have been continued, except for his doxazosin which in rare cases can trigger an arrhythmia. Lyme titers are negative. Echocardiogram did show a slightly decreased EF @ 50%. CTA showed nothing evident of a PE, though significant coronary calcification was noted. As per electrophysiology's recommendation, superintendent container terminal plan is to monitor with a holter, or if sx appears, a pacemaker. -f/u stress test results -continue lisinopril/furosemide/hctz/ASA -neg lyme titers #Gout Home meds have been continued. No episodes of acute joint pain overnight. -Continue colchicine FULL CODE DVT PPX: pharm Reg Diet Problem List: 1. Morbid obesity 2. Sinus bradycardia Pain Ratin Pain Location: N/a Pain Goal: Pain 4 or less Pain Plan: N/a Tomorrow's Labs & Rationales: bep, mg Junior LAZO,Josephine 04/09/18 1027: Attending MD Review Statement Attending Statement Attending MD Statement: examined this patient, discuss w/resident/PA/SUPERVISOR ENROBING, agreed w/resident/PA/SUPERVISOR ENROBING, reviewed EMR data (avail), reviewed images, amended to note Attending Assessment/Plan: Patient seen and examined, denies any complaints. He was bradycardic last night but asymptomatic. His chest CTA is negative for any pulmonary embolism. Vital Signs Date Time Temp Pulse Resp B/P B/P Pulse O2 O2 Flow FiO2 Mean Ox Delivery Rate 04/09 0932 66 150/80 04/09 0800 97.9 46 18 140/70 95 Room Air 04/09 0400 97.8 49 16 138/60 96 Room Air 04/09 0000 96 Room Air 04/09 0000 98.6 44 16 144/60 96 Room Air 04/08 2155 Room Air 04/08 1600 97.7 72 22 140/58 96 Room Air on exam; aox, nad. cv; s1,s2, rrr resp; clear abd; soft, nt, bs+ ext; 2+ edema b/l Laboratory Tests 04/09 04/09 0550 0445 Chemistry Sodium (137 - 145 mmol/L) 142 Potassium (3.5 - 5.1 mmol/L) 3.7 Chloride (98 - 107 mmol/L) 104 Carbon Dioxide (22 - 30 mmol/L) 27 Anion Gap (5 - 16) 11 BUN (9 - 20 mg/dL) 29 H Creatinine (0.7 - 1.2 mg/dL) 1.1 Estimated GFR (>60 ml/min) > 60 BUN/Creatinine Ratio (7 - 25 %) 26.4 H Magnesium (1.6 - 2.3 mg/dL) 1.9 Hematology CBC w Diff NO MAN DIFF REQ WBC (4.8 - 10.8 /CUMM) 7.5 RBC (4.70 - 6.10 /CUMM) 4.74 Hgb (14.0 - 18.0 G/DL) 13.1 L Hct (42 - 52 %) 40.1 L MCV (80.0 - 94.0 FL) 84.4 MCH (27.0 - 31.0 PG) 27.7 MCHC (33.0 - 37.0 G/DL) 32.8 L RDW (11.5 - 14.5 %) 15.6 H Plt Count (130 - 400 /CUMM) 191 MPV (7.4 - 10.4 FL) 9.2 Gran % (42.2 - 75.2 %) 66.9 Lymphocytes % (20.5 - 51.1 %) 21.8 Monocytes % (1.7 - 9.3 %) 7.4 Eosinophils % (0 - 5 %) 3.4 Basophils % (0.0 - 2.0 %) 0.5 Absolute Granulocytes (1.4 - 6.5 /CUMM) 5.0 Absolute Lymphocytes (1.2 - 3.4 /CUMM) 1.6 Absolute Monocytes (0.10 - 0.60 /CUMM) 0.6 Absolute Eosinophils (0.0 - 0.7 /CUMM) 0.3 Absolute Basophils (0.0 - 0.2 /CUMM) 0 A/P: 72 y/o M with pmh sig for HTN, Obesity, HLP, and gout admitted with chest pain. Trops x 3 neg. Pt had some pauses and episodes of bradycardiaon tele monitor. He was seen by Dr. Contreras. 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 He recommended ultimate pacemaker but not at this time. Patient will likely need Holter monitor and if condition becomes worse or he bnecomes symptomatic, then he will need a pacemaker at some point in future. Chest CTA is neg for PE. Pt going for the second part of stress test. Will follow the results of stress test. Further plan of care will be pending the results of the stess test. Please repeat his magnesium and potassium. Continue the rest of the management. DVT prophylaxis: Lovenox. Disposition plan is pending stress test results.
--- NOTE | 2018-04-09 14:36 | NUCLEAR MEDICINE REPORT ---
PERSANTINE STRESS AND RESTING SPECT MYOCARDIAL PERFUSION IMAGING STUDY WITH GATED SPECT IMAGES: CLINICAL INDICATION: Abnormal ECG. PROCEDURE: Regional myocardial perfusion was assessed using a 2 day protocol. Stress images were obtained on 04/08/2018 following the intravenous administration of 59 mCi Tc 99m Myoview. Stress consisted of 60 mg Persantine given intravenously. Following the sestamibi injection, no aminophylline was given intravenously. Rest images were obtained 04/09/2018 following the intravenous administration of 60.7 mCi Technetium 99m Myoview. Single photon emission tomographic (SPECT) images were obtained. SPECT images were acquired in a 64 x 64 matrix of 64 projections over 180 degrees. These were reconstructed into standard short axis, horizontal and vertical long axis cardiac projections. FINDINGS: The post stress images showed left ventricular chamber to be moderately dilated. There is a small region of markedly diminished and almost absent activity present at the apex there is also mildly decreased activity in the adjacent apical anterior wall.. The activity in the other castillo appears normal. The rest images show the left ventricular chamber to the moderately enlarged but unchanged in size compared to the post stress images. There is a region of decreased activity present at the apex, but this is less severely decreased and significantly smaller in size than on the post stress images. The other castillo appear normal and are unchanged from the post stress images. The stress images were obtained using a gated SPECT technique, which permits visualization of wall motion and calculation of the left ventricular ejection fraction. The left ventricular chamber is moderately dilated. No focal left ventricular wall motion abnormalities are noted. The calculated left ventricular ejection fraction is 53% on the stress study. No previous study is available for comparison. IMPRESSION: There is a small region of markedly diminished perfusion present at the apex that is probably abnormal, but less likely this could represent prominent physiological thinning at the apex. On the rest images there is significant improvement in this, appearing smaller in size and less severely decreased in intensity, suggesting this represents a partially reversible perfusion abnormality. There are motion in this region is normal. No other perfusion abnormalities are noted. The left ventricular chamber is moderately dilated but no focal wall motion abnormalities are present. Ejection fraction is normal.
--- NOTE | 2018-04-09 15:53 | Patient Discharge Instructions ---
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 Diet Continue normal diet: Yes Recommended Diet: Heart Healthy Activity Full Activity/No Limits: Yes Acute Coronary Syndrome Inclusion Criteria At DC or during hospital stay patient has or had the following: ACS DIAGNOSIS No Discharge Core Measures Meds if any: Prescribed or Continued at Discharge Meds if any: NOT Prescribed or Continued at Discharge Congestive Heart Failure Inclusion Criteria At DC or during hospital stay patient has or had the following: CHF DIAGNOSIS No Discharge Core Measures Meds if any: Prescribed or Continued at Discharge Meds if any: NOT Prescribed or Continued at Discharge Cerebrovascular accident Inclusion Criteria At DC or during hospital stay patient has or had the following: CVA/TIA Diagnosis No Discharge Core Measures Meds if any: Prescribed or Continued at Discharge Meds if any: NOT Prescribed or Continued at Discharge Venous thromboembolism Inclusion Criteria VTE Diagnosis No VTE Type NONE VTE Confirmed by (Test) NONE Discharge Core Measures - Per Current guidelines, there needs to be overlap - treatment for the first 5 days of Warfarin therapy. - If discharged on Warfarin prior to 5 days of - overlap therapy, the patient will need to be - assessed for post discharge needs including - *Post discharge parental anticoagulation - *Warfarin and/or parental anticoagulation education - *Follow up date to check INR post discharge At least 5 days overlap therapy as Inpatient No Meds if any: Prescribed or Continued at Discharge Note: Overlap Therapy is Warfarin and Anticoagulant Meds if any: NOT Prescribed or Continued at Discharge
[2018-04-09 16:00] VITALS: BP 132/80
--- NOTE | 2018-04-09 16:46 | PN- Cardiology ---
Subjective Subjective: * No chest discomfort or lightheadedness. * sinus rhythm with type 1 second degree AV block * small area of apical ischemia Objective Vital Signs and I&Os Vital Signs Date Time Temp Pulse Resp B/P B/P Pulse O2 O2 Flow FiO2 Mean Ox Delivery Rate 04/09 1600 97.8 62 18 132/80 96 Room Air 04/09 0932 66 150/80 04/09 0800 97.9 46 18 140/70 95 Room Air 04/09 0400 97.8 49 16 138/60 96 Room Air 04/09 0000 96 Room Air 04/09 0000 98.6 44 16 144/60 96 Room Air 04/08 2155 Room Air Intake & Output 04/09 1600 04/09 0800 04/09 0000 04/08 1600 04/08 0800 04/08 0000 Intake Total 670 240 390 720 Output Total 750 785 067 2424 500 1150 Balance -80 -500 -360 -860 -500 -430 Intake, IV 20 0 Intake, Oral 650 240 390 720 Number 2 1 1 1 1 1 Bowel Movements Output, Urine 750 184 871 9759 500 1150 Physical Exam: General: WD/obese male in NAD; alert and oriented x 3 HEENT: NC/AT, PERRl, EOMI Neck: obese, no JVD Heart: RRR with ectopy Lungs: clear bilaterally Extremities: 2+ leg edema bilaterally Assessment/Plan Assessment/Plan * Patient continues to demonstrate bilateral leg edema likely due to increased RV pressures from obstructive sleep apnea. Stop HCTZ and increase Lasix to 40mg BID. * His ischemia is a small apical defect in a non-lifethreatening region. We will treat this medically as long as the patient remains pain free. Ambulate patient and observe for symptoms. * This patient continues to demonstrate a type 1 second degree AV block. We will monitor for symptoms. If present he will need a pacemaker. Continue telemetry? Yes
[2018-04-10] VITALS: BP 138/64
[2018-04-10 08:00] VITALS: BP 136/60
--- NOTE | 2018-04-10 09:14 | PN- Housestaff ---
Subjective Follow-up For: Bradycardia AV Block Type II - [place] Complaints: no complaints Subjective: Pt seen and examined this am. No acute complains overnight. B/L LE edema improved over yesterday - he reports no symptoms after ambulation yesterday. Review of Systems Constitutional: Reports: no symptoms. Objective Last 24 Hrs of Vital Signs/I&O Vital Signs Date Time Temp Pulse Resp B/P B/P Pulse O2 O2 Flow FiO2 Mean Ox Delivery Rate 04/10 08 96.6 54 18 136/60 95 Room Air 04/10 0000 98.1 46 18 138/64 96 Room Air 04/09 1600 97.8 62 18 132/80 96 Room Air Intake & Output 04/10 1600 04/10 0800 04/10 0000 Intake Total 600 480 Output Total 900 650 Balance -300 -170 Intake, Oral 600 480 Number 1 Bowel Movements Output, Urine 900 650 Patient 364 lb 364 lb Weight Weight Bed scale Measurement Method Physical Exam General Appearance: Alert, Oriented X3, Cooperative, No Acute Distress Skin: No Significant Lesion HEENT: Atraumatic, PERRLA Neck: Supple, No JVD Cardiovascular: Regular Rate, Normal S1, Normal S2, No Murmurs Lungs: Clear to Auscultation, Normal Air Movement Abdomen: Normal Bowel Sounds, Soft, No Tenderness, No Masses, Abdominal obesity Neurological: Normal Gait, Normal Speech Extremities: No Clubbing, No Cyanosis, B/L LE 2+ edema Vascular: Normal Pulses Current Medications: Current Medications Sig/Brittany Start time Last Medication Dose Route Stop Time Status Admin Acetaminophen 650 MG Q6P PRN 04/06 2045 AC PO Aspirin Buffered 81 MG DAILY 04/07 900 AC 04/10 PO 08 Atropine Sulfate 0.5 MG Q 5 MINUTES X 3 DO.. 04/06 2100 AC IV Colchicine 600 MCG DAILY 04/07 900 AC 04/08 PO 0833 Enoxaparin Sodium 40 MG DAILY 04/07 900 AC 04/10 SC 08 Fluticasone 2 SPRAY DAILY NEEDED PRN 04/09 900 AC Propionate SHAUNNA Furosemide 40 MG BID 04/09 2100 AC 04/10 PO 0801 Furosemide 40 MG DAILY 04/07 900 DC 04/09 PO 09 Hydrochlorothiazide 25 MG DAILY 04/07 900 DC 04/09 PO 09 Lisinopril 20 MG DAILY 04/07 900 AC 07/26 PO 0802 Nystatin 1 HUANG BID 04/08 0900 AC 04/10 TOP 0803 Last 24 Hrs of Lab/Kartik Results Last 24 Hrs of Labs/Mics: Laboratory Tests 04/10/18 0545: Anion Gap 11, Estimated GFR 60, BUN/Creatinine Ratio 25.0, Magnesium 1.9 04/09/18 1702: Anion Gap 10, Estimated GFR 54 L, BUN/Creatinine Ratio 23.1, Magnesium 1.9 Orders Miscellaneous Findings: 04/08 EXAM TYPE: NUC - MYOCARDIAL PERFUSION IMAGING PERSANTINE STRESS AND RESTING SPECT MYOCARDIAL PERFUSION IMAGING STUDY WITH GATED SPECT IMAGES: CLINICAL INDICATION: Abnormal ECG. PROCEDURE: Regional myocardial perfusion was assessed using a 2 day protocol. Stress images were obtained on 04/08/2018 following the intravenous administration of 59 mCi Tc 99m Myoview. Stress consisted of 60 mg Persantine given intravenously. Following the sestamibi injection, no aminophylline was given intravenously. Rest images were obtained 04/09/2018 following the intravenous administration of 60.7 mCi Technetium 99m Myoview. Single photon emission tomographic (SPECT) images were obtained. SPECT images were acquired in a 64 x 64 matrix of 64 projections over 180 degrees. These were reconstructed into standard short axis, horizontal and vertical long axis cardiac projections. FINDINGS: The post stress images showed left ventricular chamber to be moderately dilated. There is a small region of markedly diminished and almost absent activity present at the apex there is also mildly decreased activity in the adjacent apical anterior wall.. The activity in the other castillo appears normal. The rest images show the left ventricular chamber to the moderately enlarged but unchanged in size compared to the post stress images. There is a region of decreased activity present at the apex, but this is less severely decreased and significantly smaller in size than on the post stress images. The other castillo appear normal and are unchanged from the post stress images. The stress images were obtained using a gated SPECT technique, which permits visualization of wall motion and calculation of the left ventricular ejection fraction. The left ventricular chamber is moderately dilated. No focal left ventricular wall motion abnormalities are noted. The calculated left ventricular ejection fraction is 53% on the stress study. No previous study is available for comparison. IMPRESSION: There is a small region of markedly diminished perfusion present at the apex that is probably abnormal, but less likely this could represent prominent physiological thinning at the apex. On the rest images there is significant improvement in this, appearing smaller in size and less severely decreased in intensity, suggesting this represents a partially reversible perfusion abnormality. There are motion in this region is normal. No other perfusion abnormalities are noted. The left ventricular chamber is moderately dilated but no focal wall motion abnormalities are present. Ejection fraction is normal. Assessment/Plan Assessment: Mr. Dang is a 72 y/o M with a PMH of hypertension, hyperlipidemia, gout, and morbid obesity came to the ED c/o chest pain and SOB. As per the pt, this pain was not severe and nonradiating that appeared during rest with complete resolution without any intervention. SOB has however been proggresive over the past couple of months, especifically during exertion. EKG on ED showed a junctional bradycardia, sinus arrest and retrograde P waves with complete right bundle branch block and first-degree AV block. He was admitted to the ICU as a telemetry hold for close monitoring of abnormal rhythm and r/o ACS. IMPRESSION #Bradycardia due to conductive disease #Self-resolving chest pain at rest with SOB and diaphoresis, p/b angina #Gout #Hyperlipidemia #Hypertension #Morbid Obesity #Self-resolving chest pain at rest with SOB and diaphoresis, p/b angina // Bradycardia due to conductive disease Patient's cardiac history and particular presentation is of high concern for underlying CAD. 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 He has been consistently bradycardic though asymptomatic since admission, atropine is at the bedside with pacer pads on. His hemodynamic status has been stable so far. Cardiology has been consulted. Troponin have been negative: an acute compromise of cardiac muscle is less likely. Lyme titers are negative. Echocardiogram did show a slightly decreased EF @ 50%. CTA showed nothing evident of a PE, though significant coronary calcification was noted. Nuclear stress test shows areas of apical compromise; As per electrophysiology's recommendation, shelter plan is to monitor with a holter, or if sx appears, a pacemaker. Patient is ambulating, being observed for the appearance of symptoms. -continue lisinopril/furosemide/ASA -Furosemide 40mg BID -neg lyme titers #Gout Home meds have been continued. No episodes of acute joint pain overnight. -Continue colchicine FULL CODE DVT PPX: pharm Reg Diet Problem List: 1. Sinus bradycardia 2. Morbid obesity Pain Ratin Pain Location: n/a Pain Goal: Pain 4 or less Pain Plan: n/a Tomorrow's Labs & Rationales: .
--- NOTE | 2018-04-10 11:30 | PN- Att Addend ---
Attending Addendum Attending Brief Note Patient seen and examined, denies any complaints. No acute issues overnight. His stress test did show a small area of reversible ischemia. Vital Signs Date Time Temp Pulse Resp B/P B/P Pulse O2 O2 Flow FiO2 Mean Ox Delivery Rate 04/10 0800 96.6 54 18 136/60 95 Room Air 04/10 0000 98.1 46 18 138/64 96 Room Air 04/09 1600 97.8 62 18 132/80 96 Room Air on exam; aox3, nad. cv; s1,s2, rrr resp; clear abd; soft, nt, bs+ ext; trace edema Laboratory Tests 04/10 04/09 0545 1702 Chemistry Sodium (137 - 145 mmol/L) 144 143 Potassium (3.5 - 5.1 mmol/L) 4.3 4.5 Chloride (98 - 107 mmol/L) 104 102 Carbon Dioxide (22 - 30 mmol/L) 28 30 Anion Gap (5 - 16) 11 10 BUN (9 - 20 mg/dL) 30 H 30 H Creatinine (0.7 - 1.2 mg/dL) 1.2 1.3 H Estimated GFR (>60 ml/min) 60 54 L BUN/Creatinine Ratio (7 - 25 %) 25.0 23.1 Magnesium (1.6 - 2.3 mg/dL) 1.9 1.9 A/P; 72 y/o M with pmh sig for HTN, Obesity, HLP, and gout admitted with chest pain. Trops x 3 neg. Pt had some pauses and episodes of bradycardiaon tele monitor. He was seen by Dr. Contreras. 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 He recommended ultimate pacemaker but not at this time. Patient will likely need Holter monitor and if condition becomes worse or he bnecomes symptomatic, then he will need a pacemaker at some point in future. Chest CTA is neg for PE. Nuclear stress test is consistent with small area of reversible ischemia. I spoke with Dr. Stephens who would like to see the patient before making any decisions about his disposition. He also recommended that we should ambulate the patient and look for any signs of ischemia or dizziness. Patient was started on higher dose of Lasix yesterday and hydrochlorthiazide was discontinued. His lower extremity edema is better. Continue the rest of the management. Further decisions about his management/ disposition will be pending cardiology follow up today.
--- NOTE | 2018-04-10 14:52 | PN- Cardiology ---
Subjective Subjective: * Patient ambulated without symptoms. * type 1 second degree AV block without symptoms of lightheadedness or exercise intolerance Objective Vital Signs and I&Os Vital Signs Date Time Temp Pulse Resp B/P B/P Pulse O2 O2 Flow FiO2 Mean Ox Delivery Rate 04/10 08 96.6 54 18 136/60 95 Room Air 04/10 0000 98.1 46 18 138/64 96 Room Air 04/09 1600 97.8 62 18 132/80 96 Room Air Intake & Output 04/10 0804/10 0000 04/09 1600 04/09 0804/09 0000 Intake Total 580 600 480 670 240 Output Total 900 650 750 500 600 Balance 580 -300 -170 -80 -500 -360 Intake, IV 20 20 Intake, Oral 560 600 480 650 240 Number 3 1 2 1 1 Bowel Movements Output, Urine 900 650 750 500 600 Patient 364 lb 364 lb Weight Weight Bed scale Measurement Method Physical Exam: General: WD/obese male in NAD; alert and oriented x 3 HEENT: NC/AT, PERRl, EOMI Neck: obese, no JVD Heart: RRR with ectopy Lungs: clear bilaterally Extremities: 1+ leg edema bilaterally Assessment/Plan Assessment/Plan * Patient continues to demonstrate bilateral leg edema likely due to increased RV pressures from obstructive sleep apnea. Continue Lasix to 40mg BID. * His ischemia is a small apical defect in a non-lifethreatening region. We will treat this medically as long as the patient remains pain free. He ambulated without symptoms. He is stable for discharge from a cardiac standpoint. Have patient follow up in the office in one week. * This patient continues to demonstrate a type 1 second degree AV block. He is without symptoms. We will continue to monitor him as an outpatient. Continue telemetry? No
[2018-04-10] MEDS ORDERED: LASIX40 M1 PO (14:58)
[2018-04-10] MEDS ORDERED: LISINOPRIL20 M1 PO ×2 (15:05→15:22)
--- NOTE | 2018-04-10 15:45 | Discharge Summary ---
Visit Information Visit Dates Admission Date: 04/06/18 Discharge Date: 04/10/18 Hospital Course Course Attending Physician: Erich Woods MD Primary Care Physician: Jose Chavez MD Consulting Request: Consulting Specialty: Cardiology Consulting Physician: Tin Rios Reason for Consult: Bradycardia Hospital Course: Mr. Holloway is a 72 y/o M with a PMH of hypertension, hyperlipidemia, gout, and morbid obesity came to the ED c/o sudden onset chest pain and SOB. As per the pt, this pain was not severe and nonradiating that appeared during rest with complete resolution without any intervention. SOB has however been progressive over the past couple of months, especifically during exertion. EKG on ED showed a junctional bradycardia, sinus arrest and retrograde P waves with complete right bundle branch block and first-degree AV block. He was admitted to the ICU as a telemetry hold for close monitoring of abnormal rhythm and r/o ACS with the following working diagnoses: #Bradycardia, Weckenbach Phenomenon #Self-resolving chest pain at rest with SOB and diaphoresis, p/b angina #HTN #Gout #Morbid Obesity #Self-resolving chest pain at rest with SOB and diaphoresis, p/b angina Due to his initial complaint of chest pain, an EKG and troponins were ordered, which were negative for acute ischemic changes, though his EKG showed a junctional rhythm, with posterior EKGs showing second degree AV Block, Mobitz I and a RBBB. The patient remained asymptomatic throughout the whole admission at rest and while ambulating. An echo showed a mildly reduced left ventricular ejection fraction estimated at 50%. Nuclear studies were ordered and showed diminished apical perfusion. He did present with B/L LE edema responsive to 40 mg Lasix BID with subsequent decrease in edema. #Bradycardia, Weckenbach Phenomenon Serial EKGs showed second degree AV Block, Mobitz I. Lyme disease titers were negative. Electrophysiology was consulted - since patient was asymptomatic, no further interventions were pursued, with the plan to follow up as outpatient. #Gout No acute episodes during admission. His colchicine was continued. #Hypertension His BP and overall hemodynamic status remained stable during his admission. On admission, he was on Lisinopril/HCTZ, doxasozin and Lasix. His HCTZ and doxasozin were discontinued. His lasix dose was increased to 40mg BID and kept on Lisinopril. Allergies: Coded Allergies: No Known Allergies (04/06/18) Significant Procedures: SERVICE DATE: 04/08/18 EXAM TYPE: CAT - CTA CHEST-PULMONARY EMBOLISM EXAMINATION: CT CHEST PE STUDY CLINICAL INFORMATION: Right bundle branch block. Bradycardia. Rule out PE. COMPARISON: Chest x-ray dated 04/06/2018. TECHNIQUE: Prior to contrast administration, localization images were obtained. After the administration of 95 mL of intravenous Optiray 320, multidetector CT volume acquisition of the chest was performed. 2-D postprocessing was performed with multiplanar reconstructions and MIP images obtained at the acquisition workstation under concurrent physician supervision. DLP: 834.54 mGy-cm. FINDINGS: Pulmonary arteries: The bolus timing on this study was acceptable for visualization of the pulmonary arterial tree. There are no intraluminal pulmonary arterial filling defects present to suggest pulmonary embolism in the main pulmonary artery, right and left main pulmonary artery, lobar and segmental branches. Lungs: There is a 2 mm solid noncalcified right upper lobe nodule (series 2, image 138) and a 2 mm subpleural left lower lobe nodule (series 2, image 291), both of doubtful clinical significance. Some patchy reticular and groundglass opacities seen in both lower lobes and in the inferior lingula, most likely representing atelectatic changes. No pleural effusion or pneumothorax. The central airways are patent. Aorta and heart: The heart is normal in size. The aorta is normal. There is no pericardial effusion. Severe coronary artery calcifications are noted. Lymphatic structures: There is no lymphadenopathy. Upper abdomen: Post cholecystectomy alexy are seen in the gallbladder fossa. Limited evaluation of the upper abdominal viscera demonstrates no focal abnormality. Bones: Multilevel mild to moderate vertebral spondylosis is seen throughout the thoracic spine. No suspicious bone findings. IMPRESSION: 1. No evidence of pulmonary embolism. 2. Incidental 2 mm solid noncalcified nodules in the right upper lobe and left lower lobe, of doubtful clinical significance. In the low risk setting, no additional follow-up is required. In the high-risk setting, consider optional CT scan follow-up in 12 months. 3. Severe coronary artery calcifications. 4. Status post cholecystectomy. VTE: Negative DICTATED BY: Ivana Shabazz MD DATE/TIME DICTATED:04/08/181604 MASTER CARPENTER:BUSHRA DATE/TIME TRANSCRIBED:04/08/181604 CONFIDENTIAL, DO NOT COPY WITHOUT APPROPRIATE AUTHORIZATION. SERVICE DATE: 04/08/18 EXAM TYPE: NUC - MYOCARDIAL PERFUSION IMAGING PERSANTINE STRESS AND RESTING SPECT MYOCARDIAL PERFUSION IMAGING STUDY WITH GATED SPECT IMAGES: CLINICAL INDICATION: Abnormal ECG. PROCEDURE: Regional myocardial perfusion was assessed using a 2 day protocol. Stress images were obtained on 04/08/2018 following the intravenous administration of 59 mCi Tc 99m Myoview. Stress consisted of 60 mg Persantine given intravenously. Following the sestamibi injection, no aminophylline was given intravenously. Rest images were obtained 04/09/2018 following the intravenous administration of 60.7 mCi Technetium 99m Myoview. Single photon emission tomographic (SPECT) images were obtained. SPECT images were acquired in a 64 x 64 matrix of 64 projections over 180 degrees. These were reconstructed into standard short axis, horizontal and vertical long axis cardiac projections. FINDINGS: The post stress images showed left ventricular chamber to be moderately dilated. There is a small region of markedly diminished and almost absent activity present at the apex there is also mildly decreased activity in the adjacent apical anterior wall.. The activity in the other castillo appears normal. The rest images show the left ventricular chamber to the moderately enlarged but unchanged in size compared to the post stress images. There is a region of decreased activity present at the apex, but this is less severely decreased and significantly smaller in size than on the post stress images. The other castillo appear normal and are unchanged from the post stress images. The stress images were obtained using a gated SPECT technique, which permits visualization of wall motion and calculation of the left ventricular ejection fraction. The left ventricular chamber is moderately dilated. No focal left ventricular wall motion abnormalities are noted. The calculated left ventricular ejection fraction is 53% on the stress study. No previous study is available for comparison. IMPRESSION: There is a small region of markedly diminished perfusion present at the apex that is probably abnormal, but less likely this could represent prominent physiological thinning at the apex. On the rest images there is significant improvement in this, appearing smaller in size and less severely decreased in intensity, suggesting this represents a partially reversible perfusion abnormality. There are motion in this region is normal. No other perfusion abnormalities are noted. The left ventricular chamber is moderately dilated but no focal wall motion abnormalities are present. Ejection fraction is normal. DICTATED BY: Ramsey Garcia MD DATE/TIME DICTATED:04/09/181227 MASTER CARPENTER:[email or web address] DATE/TIME TRANSCRIBED:04/09/18 / 1228 CONFIDENTIAL, DO NOT COPY WITHOUT APPROPRIATE AUTHORIZATION. <Electronically signed in Other Vendor System> SIGNED BY: Ramsey Garcia MD [id number] SERVICE DATE: 04/07/18-08 EXAM TYPE: CARD - ECHO (COMPLETE) W/CONTRAST CARLIE HOLLOWAY Age: 72 : 1945 Gender: M Exam Date: 04/07/2018 09:59 Exam Location: [facility] Ht (in): 75 Wt (lb): 385 BSA: 3.12 BP: 174 / 58 Ordering Physician: Fernando Mccormick MD Referring Physician: Fernando Mccormick MD Technologist: Severiano Paniagua [facility] Room Number: 108-1 Indications: Cardiac arrhythmia, unspecified Rhythm: Sinus Technical Quality: Fair FINDINGS Left Ventricle Normal size left ventricle. Moderate concentric left ventricular hypertrophy. Mildly reduced global left ventricular systolic function. Mildly reduced left ventricular ejection fraction estimated at 50%. "pseudonormal" filling pattern of the left ventricle for age (stage 2 diastolic dysfunction). Right Ventricle Normal right ventricular size and function. Right Atrium Normal right atrial size. Left Atrium Normal left atrial size. Mitral Valve Structurally normal mitral valve. Trace mitral regurgitation. Aortic Valve Trileaflet aortic valve. Mild aortic sclerosis. No aortic stenosis. Mild aortic regurgitation. Tricuspid Valve Structurally normal tricuspid valve. Trace tricuspid regurgitation. Unable to estimate the right ventricular systolic pressure. Pulmonic Valve Pulmonic valve not well visualized, grossly normal. Trace pulmonic regurgitation. Pericardium No pericardial effusion. Great Vessels Mild aortic dilatation at the level of the sinuses of valsalva (root). Mildly dilated proximal ascending aorta (tube). Normal size inferior vena cava. CONCLUSIONS Normal size left ventricle. Moderate concentric left ventricular hypertrophy. Mildly reduced global left ventricular systolic function. Mildly reduced left ventricular ejection fraction estimated at 50%. "pseudonormal" filling pattern of the left ventricle for age (stage 2 diastolic dysfunction). Normal right ventricular size and function. Normal atrial size. Trace mitral regurgitation. Mild aortic regurgitation. Trace tricuspid regurgitation. Unable to estimate the right ventricular systolic pressure. Trace pulmonic regurgitation. Mild aortic dilatation at the level of the sinuses of valsalva (root). Mildly dilated proximal ascending aorta (tube). Tin Rios M.D. (Electronically Signed) Final Date: 07 April 2018 18:59 MEASUREMENTS (Male / Female) Normal Values 2D ECHO LV Diastolic Diameter PLAX 5.3 cm 4.2 - 5.9 / 3.9 - 5.3 cm LV Systolic Diameter PLAX 3.9 cm 2.1 - 4.0 cm LV Fractional Shortening PLAX 26.4 % 25 - 46 % LV Ejection Fraction 2D Teich 51.3 % IVS Diastolic Thickness 1.4 cm LVPW Diastolic Thickness 1.4 cm LV Relative Wall Thickness 0.5 RV Internal Dim ED PLAX 3.7 cm 1.9 - 3.8 cm LVOT Diameter 2.2 cm Aortic Root Diameter 3.9 cm LA Systolic Diameter LX 3.8 cm 3.0 - 4.0 / 2.7 - 3.8 cm Ascending Aorta Diameter 3.6 cm DOPPLER AV Peak Velocity 168.0 cm/s AV Peak Gradient 11.3 mmHg AV Mean Velocity 120.0 cm/s AV Mean Gradient 7.0 mmHg AV Velocity Time Integral 36.2 cm AI Deceleration [place] 301.0 cm/s AI Peak Velocity 389.0 cm/s AI Pressure Half Time 379.0 ms AI Peak Gradient 60.5 mmHg LVOT Peak Velocity 115.0 cm/s LVOT Peak Gradient 5.3 mmHg LVOT Mean Velocity 60.9 cm/s LVOT Mean Gradient 2.0 mmHg LVOT Velocity Time Integral 25.3 cm LVOT Stroke Volume 96.2 cm AV Area Cont Eq vti 2.7 cm AV Area Cont Eq pk 2.6 cm MV Peak Velocity 97.9 cm/s MV Peak Gradient 3.8 mmHg MV Mean Velocity 71.9 cm/s MV Mean Gradient 2.0 mmHg Mitral E Point Velocity 96.0 cm/s Mitral A Point Velocity 72.3 cm/s Mitral E to A Ratio 1.3 MV PHT Velocity 102.0 cm/s MV Deceleration [place] 239.0 cm/s MV Pressure Half Time 128.0 ms MV Area PHT 1.7 cm MV Deceleration Time 236.0 ms PV Peak Velocity 77.2 cm/s PV Peak Gradient 2.4 mmHg PV Mean Velocity 56.5 cm/s PV Mean Gradient 1.0 mmHg PV Velocity Time Integral 17.6 cm LV E' Lateral Velocity 15.5 cm/s Mitral E to LV E' Lateral Ratio 6.2 LV E' Septal Velocity 6.4 cm/s Mitral E to LV E' Septal Ratio 14.9 DICTATED BY: Tin Rios MD DATE/TIME DICTATED:04/07/181858 MASTER CARPENTER:BUSHRA DATE/TIME TRANSCRIBED:04/07/181858 CONFIDENTIAL, DO NOT COPY WITHOUT APPROPRIATE AUTHORIZATION. SERVICE DATE: 04/06/18 EXAM TYPE: RAD - XRY-CHEST XRAY, TWO VIEWS EXAMINATION: XR CHEST CLINICAL INFORMATION: Chest pain. COMPARISON: None TECHNIQUE: 2 views of the chest were obtained. FINDINGS: No significant abnormality is noted involving the heart, lungs, mediastinum, bony thorax or soft tissues. IMPRESSION: Unremarkable examination. DICTATED BY: Chace Mccracken MD DATE/TIME DICTATED:04/06/181640 MASTER CARPENTER:BUSHRA DATE/TIME TRANSCRIBED:04/06/181640 CONFIDENTIAL, DO NOT COPY WITHOUT APPROPRIATE AUTHORIZATION. 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 Medications at Discharge Discharge Medications: Stop taking the following medications: Doxazosin Mesylate (Cardura) 4 MG TABLET ORAL DAILY Lisinopril/Hydrochlorothiazide (Lisinopril-Hctz 20-25 MG Tab) 20 MG-25 MG TABLET ORAL DAILY Furosemide (Furosemide) 40 MG TABLET ORAL DAILY Continue taking these medications: Aspirin (Ecotrin*) 81 MG TABLET.DR 1 Tablet ORAL DAILY Comments: Last Taken:04/10/18 Time: 9:30 AM Colchicine (Colcrys) 0.6 MG TABLET 1 Tablet ORAL DAILY Comments: Last Taken:04/08/18 Time: 8:30 AM Febuxostat (Uloric) 80 MG TABLET 1 Tablet ORAL DAILY Comments: DID NOT RECEIVE WHILE IN HOSPITAL Fluticasone Propionate (Flonase Allergy Relief) 50 MCG/ACTUATION SPRAY.SUSP 1 [place] Both sides of nose DAILY Comments: DID NOT RECEIVE WHILE IN HOSPITAL Start taking the following new medications: Lisinopril (Lisinopril) 20 MG TABLET 1 Tablet ORAL DAILY Qty = 30 No Refills Comments: Last Taken:04/10/18 Time:8:02 Furosemide (Lasix) 40 MG TABLET 40 Milligram ORAL TWICE DAILY Qty = 60 No Refills Comments: Last Taken:04/10/18 Time: 8:30 AM Copies To: Scott LAZO,Jose; Gabriel LAZO,Tin Pagan; Diane LAZO,Tin Guillaume
== END 2018-04-10 17:00 | DRG 309 ==
LOC: ERH 15:26 → CRI 18:22 → ERHI 18:22 → EDBEDREQ 19:28 → EDBEDREQTM 19:28 → ERHI 19:29 → ENRESERV 19:54 → ENTRNSPT 21:29 → EDTRNSPT 21:53 → EDTRNSPTSTS 21:53 → CMPTRNSPT 22:04 → CRI 22:09 → ENTRNSPT 04-10 16:52 → EDTRNSPTSTS 04-10 16:56 → CRI 04-10 17:00 → CMPTRNSPT 04-10 17:09
PROVIDERS: Internal Medicine Interventional Cardiology; Physician Assistant; Student in an Organized Health Care Education/Training Program
PROC: 4A12XM4 Monitoring of Cardiac Stress, External Approach (ICD-10-PCS; principal; 2018-04-08)
PROC: 3E073KZ Introduction of Other Diagnostic Substance into Coronary Artery, Percutaneous Approach (ICD-10-PCS; principal; 2018-04-08)
DX: I44.1 Atrioventricular block, second degree (principal); Z68.42 Body mass index [BMI] 45.0-49.9, adult; R00.1 Bradycardia, unspecified; E66.01 Morbid (severe) obesity due to excess calories; I10 Essential (primary) hypertension; I45.10 Unspecified right bundle-branch block; E78.5 Hyperlipidemia, unspecified; M10.9 Gout, unspecified
CPT/HCPCS: 86618; CCU; 36415; 36592; 71046; 78452; 82436; 93005; 93010; 93016; 93017; A9502; C8929; J1245; J1650; Q9957

== ENCOUNTER 2018-05-16 11:57 | Inpatient (IN) | payer OTHER ==
[~2018-05-16] VITALS: Ht 190.5 cm; Wt 169.3 kg
[~2018-05-16 11:57] MED LIST: ASPIRIN EC81 M1 PO; CARDURA4 M1 PO; COLCRYS0.6 M1 PO; FLONASE ALLERG9.9 ML NASB; FUROSEMIDE40 M1 PO; LASIX40 M1 PO; LISINOPRIL-HCT1 EAC1 PO; LISINOPRIL20 M1 PO; ULORIC80 M1 PO
[2018-05-16 12:45] LABS: ABSOLUTE BASOPHIL COUNT 0 /CUMM (0.0-0.2); ABSOLUTE EOSINOPHIL COUNT 0.1 /CUMM (0.0-0.7); ABSOLUTE GRANULOCYTE CT 10.8 /CUMM (1.4-6.5); ABSOLUTE LYMPH COUNT 1.3 /CUMM (1.2-3.4); ABSOLUTE MONOCYTE COUNT 0.6 /CUMM (0.10-0.60); BASOPHIL % 0.2 % (0.0-2.0); EOSINOPHIL % 0.6 % (0-5); HEMATOCRIT 33.8 % (42-52); MEAN CORPUSCULAR HGB 28.6 PG (27.0-31.0); MEAN CORPUSCULAR HGB CONC 32.9 G/DL (33.0-37.0); MEAN PLATELET VOLUME 7.7 FL (7.4-10.4); PLATELET COUNT 477 /CUMM (130-400); RBC DISTRIBUTION WIDTH 15.3 % (11.5-14.5); RED BLOOD CELL CT 3.89 /CUMM (4.70-6.10); WHITE BLOOD CELL COUNT 12.7 /CUMM (4.8-10.8)
[2018-05-16 12:50] LABS: GRANULOCYTE % 84.6 % (42.2-75.2)
[2018-05-16 12:55] LABS: PTT 29 SEC (25-37)
[2018-05-16] MEDS ORDERED: FUROSEMIDE40 M1 PO (14:35)
[2018-05-16] MEDS ORDERED: AMIODARONE HCL200 M1 PO (14:36)
[2018-05-16] MEDS ORDERED: LISINOPRIL20 M1 PO (14:36)
[2018-05-16] MEDS ORDERED: OXYCODONE HCL5 M1 PO (14:38)
--- NOTE | 2018-05-16 15:17 | ED GENERAL ADULT ---
History of Present Illness General Chief Complaint: General Adult Stated Complaint: RECTAL BLEED Source: patient, family Exam Limitations: no limitations Vital Signs & Intake/Output Vital Signs & Intake/Output Vital Signs Date Time Temp Pulse Resp B/P B/P Pulse O2 O2 Flow FiO2 Mean Ox Delivery Rate 05/16 1233 99.0 60 17 156/67 98 Room Air Allergies Coded Allergies: Beta-Blockers (Beta-Adrenergic Bloc (Severe, PSYCHOTIC EPISODE 05/16/18) pravastatin (Severe, PANIC ATTACKS 05/16/18) Reconcile Medications Amiodarone (Cordarone) 200 MG TAB 1 TAB PO BID HEART (Reported) Aspirin (Ecotrin*) 81 MG TABLET.DR 1 TAB PO DAILY HEART/BLOOD (Reported) Furosemide 40 MG TABLET 1 TAB PO DAILY WATER RETENTION (Reported) Lisinopril 20 MG TABLET 1 TAB PO DAILY High Blood Pressure Oxycodone HCl 5 MG TABLET 1 TAB PO Q6-PRN PRN pain (Reported) Triage Note: PT BROUGHT DIRECTLY TO [facility]. PT STATES THIS MORNING HE HAS HAD TO EPISODE OF BRIGHT RED BLOOD PER RECTUM WITH CLOTS. PT DENIES ABD OR RECTAL PAIN. STATES HE HAD A TRIPLE BYPASS 2 WEEKS PRIOR AT [facility] AND HAS BEEN DOING WELL SINCE. PT DENIES CHEST PAIN. HE IS ALERT AND ORIENTED. SKIN WAMR AND DRY. HX OF GI BLEEDS, BUT STATES NO REASON WAS FOUND AFTER HAVING A COLONOSCOPY Triage Nurses Notes Reviewed? yes HPI: 72-year-old male, recently post triple bypass, comes in for rectal bleed. He reports he is on no blood thinners. He is only on aspirin. He reports bright red blood in stool this morning. He denies being dizzy or lightheaded. He reports he was recently on Lovenox while he was in the hospital post CABG. Patient denies any abdominal pain, nausea, vomiting. Denies any history of GI bleed. Reports she has had colonoscopy multiple years ago which was normal. Past History Travel History Traveled to [place] past 21 day No Medical History Any Pertinent Medical History? see below for history Neurological: NONE EENT: NONE Cardiovascular: CAD, hypertension, hyperlipidemia Musculoskeletal: gout Endocrine: obesity History of MRSA: No History of VRE: No History of CDIFF: No Surgical History Surgical History: non-contributory Psychosocial History Who do you live with Spouse Services at Home None What is your primary language Portuguese Tobacco Use: Never used Family History Hx Contributory? Yes Review of Systems Review of Systems Constitutional: Denies: chills, diaphoresis, fever. EENTM: Denies: blurred vision, double vision, visual changes. Respiratory: Denies: cough, hemoptysis. Cardiovascular: Denies: chest pain, edema. GI: Reports: bloody stool. Denies: abdominal pain, bloating, constipation. Genitourinary: Denies: discharge, dysuria. Musculoskeletal: Denies: back pain, gout. Skin: Denies: cysts, change in skin color. Neurological/Psychological: Denies: anxiety, ataxia. Physical Exam Physical Exam General Appearance: well developed/nourished, no apparent distress, alert, awake Head: atraumatic, normal appearance Eyes: Bilateral: PERRL, EOMI. Ears, Nose, Throat: normal pharynx, normal ENT inspection Neck: normal inspection, supple, full range of motion Respiratory: normal breath sounds, chest non-tender, no respiratory distress Cardiovascular: regular rate/rhythm, edema Gastrointestinal: normal bowel sounds, soft, non-tender Rectal: GUIAC positive brown stool Back: normal inspection, normal range of motion Neurologic/Psych: no motor/sensory deficits, awake, alert, oriented x 3 Skin: intact, normal color Core Measures ACS in differential dx? No CVA/TIA Diagnosis: No Sepsis Present: No Sepsis Focused Exam Completed? No Progress Differential Diagnoses . Plan of Care: Orders Procedure Date/time Status Regular Diet 05/16 D Active Patient Data 05/16 1525 Active ED Holding Orders 05/16 1522 Active Admit to inpatient 05/16 1522 Active Code Status 05/16 1522 Active EKG 05/16 1403 Active Saline Lock 05/16 1338 Active MISTAKE 05/16 1201 Active TROPONIN LEVEL 05/16 1201 Complete PARTIAL THROMBOPLASTIN TIME 05/16 1201 Complete PROTHROMBIN TIME 05/16 1201 Complete COMPREHENSIVE METABOLIC PANEL 05/16 1201 Complete CBC WITHOUT DIFFERENTIAL 05/16 120 Complete TYPE & SCREEN (NOT X-MATCH) 05/16 1201 Complete Laboratory Tests 05/16/18 1226: Anion Gap 6, Estimated GFR 54 L, BUN/Creatinine Ratio 25.4 H, Glucose 81, Calcium 8.6, Total Bilirubin 0.2, AST 23, ALT 37, Alkaline Phosphatase 79, Troponin I 0.02, Total Protein 6.4, Albumin 3.1 L, Globulin 3.3, Albumin/ Globulin Ratio 0.9 L, PT 15.0 H, INR 1.37 H, APTT 29, CBC w Diff NO MAN DIFF REQ, RBC 3.89 L, MCV 87.0, MCH 28.6, MCHC 32.9 L, RDW 15.3 H, MPV 7.7, Gran % 84.6 H, Lymphocytes % 10.3 L, Monocytes % 4.3, Eosinophils % 0.6, Basophils % 0.2, Absolute Granulocytes 10.8 H, Absolute Lymphocytes 1.3, Absolute Monocytes 0.6, Absolute Eosinophils 0.1, Absolute Basophils 0 Initial ED EKG: see below Comments: EKG shows atrial fibrillation with a rate of 58. Normal axis. Right bundle branch block. No acute ST-T changes. Compared to the EKG from April 07, 2018: Change in rhythm. 72-year-old male presents with no cardiac symptoms. Patient has a rectal bleed. Because of his cardiac history the patient will be admitted and evaluated for lower GI bleed. At this time the vital signs are stable and the patient has no cardiac symptoms. Departure Departure Time of Disposition: 1526 Disposition: STILL A PATIENT Condition: Stable Clinical Impression Primary Impression: GI bleed Referrals: Yusef Hirsch APRN (PCP/Family) Departure Forms: Customer Survey General Discharge Information Admission Note Spoke With: Boris Bello MD Documentation of Exam: Documentation of any treatments & extenuating circumstances including Concerns Regarding Discharge (functional status, medication knowledge or non-compliance, living conditions, etc.) that warrant an admission rather than observation: Lower GI bleed, recent CABG. Likely requires colonoscopy, evaluation by anesthesia for colonoscopy. Cardiac clearance. Critical Care Note Critical Care Note Critical Care Time: non-applicable
--- NOTE | 2018-05-16 15:38 | History & Physical ---
Carly Pringle 05/16/18 1538: General Information and HPI MD Statement: I have seen and personally examined CARLIE DANG and documented this H&P. The patient is a 72 year old M who presented with a patient stated chief complaint of bleding per rectum Source of Information: patient, family Exam Limitations: no limitations History of Present Illness: 72 yo Male with past medical history hypertension, hyperlipidemia, CAB s/p triple bypass presents to the ED with chief complaint of bleeding per rectum. He states he noticed bright red blot with clots on the toilet bowl in the morning today. He had another bowel movement a few hous later, again accompanied by bright red blood. The bleeding was painless, not accompanied by addominal cramps. The patient denies any associated fever, chills, nausea, vomiting, or constipation. Notably, the patient had a similar but more severe episode of bleeding per rectum 5 years ago. A colonoscopy was done at the [facility] at that time. The patient apparently told that the colonoscopy was normal and he had a "blood pocket" in the rectum. He denies any historyof hemorrhoids. The patient is s/p triple bypass at [facility] about 2 weeks ago. During the post op course, he had been having breakthrough diarrhea till 2 days ago. He has also been experiencing "panic attacks" every night. His explains that he wakes up short of breath about 3 hours after he goes to bed. He has to sit up and rest in a recliner. His symptoms are relieved whilst he is in the recliner. The symptoms recur in the similar pattern if he tries to go back to sleep again. The patient denies any palpitations, sweating and nausea during these "panic attacks". The states they attributed them to Pravastatin which he recenty started. The patient has discontinued the drug but the patient still has been having similar symptoms. The patient also has severe pedal edema inspite of wearing compression stockings. The denies any recent worsening pedal edema or a recent gain in weight. The patient denies SOB, that potentially limits his activity but cannot reliably give history for the same because of osteoarthritis of his knees. Allergies/Medications Allergies: Coded Allergies: Beta-Blockers (Beta-Adrenergic Bloc (Severe, PSYCHOTIC EPISODE 05/16/18) pravastatin (Severe, PANIC ATTACKS 05/16/18) Home Med list Amiodarone (Cordarone) 200 MG TAB 1 TAB PO BID HEART (Reported) Aspirin (Ecotrin*) 81 MG TABLET.DR 1 TAB PO DAILY HEART/BLOOD (Reported) Furosemide 40 MG TABLET 1 TAB PO DAILY WATER RETENTION (Reported) Lisinopril 20 MG TABLET 1 TAB PO DAILY High Blood Pressure Oxycodone HCl 5 MG TABLET 1 TAB PO Q6-PRN PRN pain (Reported) Past History Travel History Traveled to [place] past 21 day No Medical History Neurological: NONE EENT: NONE Cardiovascular: CAD, hypertension, hyperlipidemia Musculoskeletal: gout Endocrine: obesity History of MRSA: No History of VRE: No History of CDIFF: No Surgical History Surgical History: non-contributory Past Family/Social History Psychosocial History Services at Home: None Review of Systems Review of Systems Constitutional: Denies: chills, diaphoresis, fever, malaise, weakness, unexplained weight loss. Cardiovascular: Reports: peripheral edema. Denies: chest pain, edema, orthopena, palpitations, syncope. Respiratory: Reports: short of breath. Denies: cough, hemoptysis, orthopnea, sputum production, stridor, wheezing. GI: Reports: diarrhea, bloody stool, changes in stool. Denies: abdominal pain, bloating, constipation, distention, vomiting. Genitourinary: Reports: hesitation. Musculoskeletal: Reports: joint pain, joint swelling. Skin: Reports: change in skin color, change in hair/nails, dryness. Neurological/Psychological: Reports: anxiety. Denies: depressed, emotional problems, numbness. Hematologic/Endocrine: Denies: polyuria, polydipsia. Exam & Diagnostic Data Last 24 Hrs of Vital Signs/I&O Vital Signs Date Time Temp Pulse Resp B/P B/P Pulse O2 O2 Flow FiO2 Mean Ox Delivery Rate 05/16 1835 98.7 72 18 162/68 99 Room Air 05/16 1711 98.7 72 18 162/68 99 Room Air 05/16 1233 99.0 60 17 156/67 98 Room Air Physical Exam General Appearance Alert, Oriented X3, Cooperative, No Acute Distress Skin bilateral vioalaceous rash on the cheeks Skin Temp/Moisture Exam: Warm/Dry Neck Supple Cardiovascular Regular Rate, Normal S1, Normal S2 Lungs Clear to Auscultation, Normal Air Movement Abdomen Normal Bowel Sounds, Soft, No Tenderness, No Hepatospenomegaly Extremities No Clubbing, No Cyanosis, pedal edema 2+ Vascular Normal Pulses, Pulses Symmetrical Assessment/Plan Assessment: This is a 72 yo gentleman with PMH of hypertension, hyperlipidemia, CAD s/p triple CABG about 2 weeks ago presents to the ED with cheif complaint of 2 episodes of painless bright red bleeding per rectum. He denies constipation or a history of hemorrhoids. He had a similar but more severe episode of bleeding about 5 years ago. A colonoscopy done at that time was apparently unrevelaing for the patient. The patient denies the use of blood thinners except Aspirin. He did haev severe diarrhea during the post op period which resolved on it own 2 days ago. He endorses getting up short of breath in the middle of the night. His symptoms are relieved sitting after sitting in the recliner. On admission, Vitals: stable afebrile, BP 162/68, HR 72, RR 18, 99% RA -CBC: 12.1 (could be reactive), Hgb 11.1 (baseline of about 13) PLT 477 ( elevated from baseline , reactive thormbocytosis secondary to bleeding vs hemoconcentration) -CMP:K 5.2, CR 1.3 elevated from baseline of 1.1, BUN:33 -PT/INR/DDimer: 15.0/1.37 -EKG: NSR w/o significant ST-T abnormalities, unchanged from previous. -Last Echo: 04/07/2018 by Gabriel, Stage [address] and [address] chest pending at this time Problems 1. GI bleed 2. Anemia with Thrombocytosis 3. Leukocytosis (reactive vs infectious) 4. TIANA 5. Hyperkalemia 6. PMH of Hypertension, hyperlipidemia, CAD s/p CABG We will admit the patient to the Gen Med floor. 1. GI bleed -Painless bleeding per rectum of unclear etiology, similar episode with unrevealing colonoscopy 5 years ago -Monitor vitals -Normal saline at the rate of 100cc an hour - CT Abdomen and Chest. Will follow up on the report - PPI prophylaxis - GI consult in the AM 2.Anemia with Thrombocytosis -Normocytic normochromic anemia likely secondary to bleeding -Most likely reactive thrombocytosis -Will monitor CBC in the am 3. Leukocytosis -Reactive vs infection -Will repeat CBC 4. TIANA -Likely secondary to dehydration -Will start NS at 100cc an hour -Will recheck BMP in the AM 5. Hyperkalemia -Asymptomatic with no EKG changes -Will repeat BEP in the AM 6. Past Medical History of Hypertension and Hyperlipidemia -We will hold Aspirin for now -Continue rest of the home meds DVT prophylaxis: ALPS only Code status: Full code As Ranked By This Provider Problem List: 1. GI bleed 2. Hyperlipidemia 3. Morbid obesity 4. Hyperkalemia 5. TIANA (acute kidney injury) 6. Thrombocytosis Core Measures/Misc (06/02) Acute Coronary Syndrome ACS Diagnosis: No Congestive Heart Failure Congestive Heart Failure Diagnosis No Cerebrovascular Accident CVA/TIA Diagnosis: No VTE (View Protocol) VTE Risk Factors Age>40 No Mechanical VTE Prophylaxis d/t N/A MechProphylax Ordered No VTE Pharm Prophylaxis d/t Bleeding (Active) Sepsis (View protocol) Sepsis Present: No If YES complete Sepsis Event Note If YES complete Sepsis Event Note Boris Bello 05/16/18 1602: Core Measures/Misc (06/02) Sepsis (View protocol) If YES complete Sepsis Event Note If YES complete Sepsis Event Note Attending MD Review Statement Attending Statement Attending MD Statement: examined this patient, discuss w/resident/PA/WET PROCESS MILLER HEAD ASSISTANT, agreed w/resident/PA/WET PROCESS MILLER HEAD ASSISTANT, discussed with family, reviewed EMR data (avail), discussed with nursing, discussed with case mgmt, reviewed images, amended to note Attending Assessment/Plan: 72-year-old white male with a significant past medical history for hypertension, hyperlipidemia, gout, and obesity, CABG brought in for evaluation of BRBPR 2 epiosdes this morning with diarrhea 3 days ago when he was admitted and recently discharged from [facility] for CABG. He is taking amiodarone/baby aspirin and is off pravastatin. His complains of back pain where he had thoracocentesis (1 L) [facility]. Labs reveal low hb/hct, he is hemodynamically stable. Patient is being admitted to gen/med for BRBPR with anemia of blood loss and left sided back pain rule out pleurisy s/p thoracentesis recently. Obtain CT abd /pelvis/Chest. NPO, PPI daily. GI consult. Colonscopy i/p vs o/p. Serial cbc monitoring. Dr Stephens is tank bottom assembler and courtesy call. GI/dvt prophyalxis full code. Obtain previous records from [facility]. Carie Lawrence 05/16/18 1716: Core Measures/Misc (06/02) Sepsis (View protocol) If YES complete Sepsis Event Note If YES complete Sepsis Event Note Resident Review Statement Resident Statement: examined this patient, discussed with underwriting internship, agreed with underwriting internship, discussed with family, reviewed EMR data (avail), discussed with nursing , discussed with case mgmt, reviewed images, amended to note Other Findings: Mr. Dang is a 72yo M w/ PMH of HTN, Obesity, HLD, recent admission to [facility] w/ CP and later underwent triple CABG at [place] by Dr. Stephens, w/ subsequent thoracentesis x 1L, presented to ER w/ cc of BRBPR x 2 episodes this AM PTAbut denied dizziness/Ab pain/N/V/D/Previous Hx of Bleed/NSAIDs. He was taking amiodarone/ASA 81 and is now off pravastatin 2/2 stain-induced anxiety. His clinical picture represented acute BRBPR w/o clear etiology per HPI, differential dx including acute internal hemorrhoid bleeding, diverticular bleeding, or any angiopathy of lower GI tract. Patient appeared to be stable on VS however his CBC seems to be hemiconcentrated with elevated leukocytosis ( although could be reactive), and thrombocytosis w/ PLT 477, which may represented a hemiconcentration from a large amount of blood loss, despite HPI did not support this unlikely event. Nevertheless, patient appeared dehydrated and would need further eval from GI for source of bleeding. -Baselines: ambulated freely During our clinical interaction, patient denied recent travel/sick contacts, fever/lightheadedness/diaphoresis/night sweat/weight change/cough/SOB/Chest Pain /Palpitation/Abdominal pain/CVA tenderness/urinary abnormality, or other skin/ musculoskeletal/neurological/mood disorders, or dietary/appetite change. On admission, Vitals: stable afebrile, BP 162/68, HR 72, RR 18, 99% RA Physical exam as above w/o any signficant ab pain. -CBC: mild leukocytosis, Hgb 11.1 decreased from baseline >13, PLT 477 -CMP: Mild hyperkalemia 5.2, CR 1.3 elevated from baseline of 1.1 -PT/INR/DDimer: 15.0/1.37 -UA/Microbiology: None -EKG: NSR w/o significant ST-T abnormalities, unchanged from previous. -Last Echo: 04/07/2018 by Gabriel, Stage 2 diastolic dysfunction -Interventions in ER: None Problem list/Assessment/Hospital Course: #Painless BRBPR w/ unclear etiology #Normacytic anemia 2/2 acute blood loss BRBPR #Hyperkalemia, asymptomatic #TIANA 2/2 dehydration #Thrombocytosis 2/2 hemiconcentration #Mild leukocytosis, likely reactive #PMH of HTN, Obesity, HLD, s/p CABG - Admit to general medicine - Vitals per protocol, monitor I&O per protocol. - Avoid NSAIDs. - Keep NPO for now - Would start NS bolus x 1 and continous IVF 100cc.hr - Start PPI prophylaxis IV - Continue all home meds, except HOLDING ASA, Lasix, Lisinopril - Pending GI consult for possible colonoscopy - Recheck CBC in the AM, if more BRBPR, will recheck more frequently - Pain per pathway DVT prophylaxis only ALPS NPO IV Access: Peripheral IV Full Code Dispo: [facility] – [place], [place]
[2018-05-16 18:35] VITALS: BP 162/68
--- NOTE | 2018-05-16 20:47 | CT SCAN REPORT ---
EXAMINATION: CT CHEST, ABDOMEN AND PELVIS WITHOUT CONTRAST CLINICAL INFORMATION: Rule out acute issues. Pleurisy. Status post recent CABG with later thoracentesis. Admitted for BRBPR, s/p recent CABG COMPARISON: Chest x-ray 04/06/2018. TECHNIQUE: Multidetector volumetric imaging was performed from the thoracic inlet through the pubic symphysis following the uneventful administration of: Oral contrast: No Intravenous contrast: No Sagittal and coronal reformatted images were obtained on the technologist workstation. FINDINGS: CHEST: LUNG: There is mild atelectasis of the right lung. There is streaky atelectasis vs. consolidation in the left lower lobe and lingula with minimal atelectasis in the left upper lobe. MEDIASTINUM: Mild cardiomegaly. Moderate circumferential pericardial effusion. Dense left anterior descending and circumflex coronary artery calcification. There is calcification of the proximal right coronary artery as well. There are sternal wires and mediastinal vascular clips. Normal caliber thoracic aorta. PLEURA: Trace left pleural effusion. CHEST WALL/AXILLA: No axillary lymphadenopathy. ABDOMEN/PELVIS: LIVER, GALLBLADDER, AND BILIARY TREE: Limited noncontrast evaluation of the liver is normal. Status post cholecystectomy. No biliary ductal dilatation. PANCREAS: Normal; no mass or surrounding fluid. SPLEEN: Normal size. No focal lesion. ADRENAL GLANDS: Normal; no mass. KIDNEYS AND URETERS: 3.7 cm hyperdense lesion exophytic from the lateral cortex of the right mid kidney. No hydronephrosis or calculi. Left kidney is slightly atrophic. There is soft tissue prominence in the left mid kidney. GASTROINTESTINAL TRACT: Stomach is collapsed. The small bowel is nondilated. Although the appendix is not definitely seen, there are no right lower quadrant inflammatory changes to suggest acute appendicitis. No evidence of colitis or diverticulitis. ABDOMINAL WALL: Fat-containing right inguinal hernia. LYMPHOVASCULAR STRUCTURES: No lymphadenopathy. The aorta is unremarkable. BLADDER: No focal mass or wall thickening seen. No bladder calculi. PELVIC VISCERA: The prostate and seminal vesicles are normal. OSSEOUS STRUCTURES: Multilevel degenerative changes of the thoracolumbar spine. Degenerative changes of the hips and sacroiliac joints. Recent prior sternotomy with intact sternal wires. IMPRESSION: Lack of intravenous contrast limits evaluation. Mild cardiomegaly with moderate circumferential pericardial effusion. Streaky atelectasis vs. consolidation in the left lower lobe and lingula. 3.7 cm hyperdense lesion exophytic from the lateral cortex of the right mid kidney. This could represent a solid renal mass or hyperdense cyst. There is soft tissue prominence in the left mid kidney, which could represent a mass. Recommend contrast-enhanced renal protocol CT or MRI for definitive characterization. FOLLOW-UP RECOMMENDED; SEE ABOVE
[2018-05-16 21:26] VITALS: BP 152/50
--- NOTE | 2018-05-17 02:03 | Cons- Gastroenterology ---
General Information and HPI Consulting Request Date of Consult: 05/17/18 Requested By: Boris Bello MD Reason for Consult: I was called last p.m. (a few hrs ago), by the hospitalist service to semi- electively assess rectal bleeding. Source of Information: patient, old records Exam Limitations: fair historian History of Present Illness: 72 y/o male, HTN, HLD, gout, morbid obesity, recently admitted to [facility] 04/06/18 - 04/10/18, with CP, progressive SOB, unstable angina, junctional bradycardia, Wenkebach (2nd degree AVB, Mobitz I), RBBB. Lyme titers were negative. There was a question as to whether the patient might need PPM. Echo showed mildly reduced LVEF at 50%, & nuclear study showed diminished apical perfusion. He subsequently had cardiac catheterization, showing triple-vessel disease, and had CABG 3 at [facility] approximately 2 weeks ago. He was on ECASA 81 mg daily. He was not on any additional anti-PLT agents, Plavix, A/C tx or NSAIDS. The patient stated the morning of 05/16/18, he had a small, brown BM, followed by BRBPR with clots in the toilet water. This was painless in nature. This was followed a few hours later by scant brown stool, but predominantly spontaneous rectal bleeding, of a smaller magnitude than the initial event. There was no melena, hematemesis, abdominal pain, rectal pain, CP, SOB, LOC, or palpitations. There was no rectal trauma. The patient denied any history of hemorrhoids. There was no FHx GI Ca, IBD, GI disease, or inherited liver disease. He claimed he had a baseline colonoscopy in [place], [place] 5 years ago (unsure as to by whom), done for a similar episode of rectal bleeding, & stated "there were no polyps, just blood pockets". When I asked him if the term diverticular bleed was used then, he was unsure. He had never been transfused, & claimed he did not become anemic after the CABG. he had mild diarrhea after the CABG, which resolved. His bowel habits were now otherwise normal, aside from the above bleeding. There was no constipation, obstipation, tenesmus, or change in stool caliber. He denied any GERD, odynophagia, dysphagia, nausea, vomiting, or early satiety. The patient has a history of panic attacks, which persisted off his Pravastatin. He has severe pedal edema, despite using compression stockings, & DJD. He denied any history of bleeding disorders or gross hematuria. He denied any hx AAA. Remote lap CCKY. No cigs or EtOH. Upon arrival to the [place] ER, 05/16/18 at 11:57 a.m., 156/67, P 60,R 17, T 99, O2 sat RA 98%. He was admitted to general medicine. I was not notified by the ER & was later contacted by the medical housestaff that p.m. There has been no recurrent bleeding since. There was no documented hypotension. 04/06/18: nl LFTs, with alb 3.5, glob 3.1, TChol 147, TG 192, HDL 26, LDL 83, TSHR 4.00, HgbA1C 5.9, troponin < 0.01, BNP 363. 04/09/18: WBC 7.5, H/H 13.1/40.1, MCV 84.4, RDW 15.6, PLT 191 04/10/18: BUN/Cr 30/1.2, nl lytes. 05/16/18: WBC 12.7 (85% gran/11 gran Ab), H/H 11.1/33.8, MCV 87, RDW 15.3, PLT 477, PT 15.0, INR 1.37, PTT 29, glucose 81, BUN/Cr 33/1.3, GFR 54, Na 138, K 5.2. HCO3 30,AG 6, Ca 8.6, alb 3.1, glob 3.3, TBil 0.2, alk phos 79, AST 23, ALT 37, troponin 0.02. 05/16/18: EKG- aflutter with 4:1 block @58, RBBB (? rhythm change). 05/16/18: CT CHEST, ABDOMEN AND PELVIS WITHOUT CONTRAST- IMPRESSION: Lack of intravenous contrast limits evaluation. Mild cardiomegaly with moderate circumferential pericardial effusion. Streaky atelectasis vs. consolidation in the left lower lobe and lingula. 3.7 cm hyperdense lesion exophytic from the lateral cortex of the right mid kidney. This could represent a solid renal mass or hyperdense cyst. There is soft tissue prominence in the left mid kidney, which could represent a mass. Recommend contrast-enhanced renal protocol CT or MRI for definitive characterization. Allergies/Medications Allergies: Coded Allergies: Beta-Blockers (Beta-Adrenergic Bloc (Severe, PSYCHOTIC EPISODE 05/16/18) pravastatin (Severe, PANIC ATTACKS 05/16/18) Home Med List: Amiodarone (Cordarone) 200 MG TAB 1 TAB PO BID HEART (Reported) Aspirin (Ecotrin*) 81 MG TABLET.DR 1 TAB PO DAILY HEART/BLOOD (Reported) Furosemide 40 MG TABLET 1 TAB PO DAILY WATER RETENTION (Reported) Lisinopril 20 MG TABLET 1 TAB PO DAILY High Blood Pressure Oxycodone HCl 5 MG TABLET 1 TAB PO Q6-PRN PRN pain (Reported) Current Medications: Current Medications Sig/Brittany Start time Last Medication Dose Route Stop Time Status Admin Acetaminophen 650 MG Q6P PRN 05/16 1615 AC PO Acetaminophen 1,000 MG Q6P PRN 05/16 1615 AC IV Amiodarone HCl 200 MG BID 05/16 2100 AC 05/16 PO 2119 Lisinopril 20 MG DAILY 05/17 0900 CAN PO Pantoprazole Sodium 40 MG DAILY 05/16 1745 AC 05/16 IV 2119 Sodium Chloride 1,000 ML BOLUS ONE 05/16 1730 DC 05/16 IV 05/16 1829 1730 Sodium Chloride 1,000 ML .Q10H 05/16 1615 AC 05/16 IV 1946 Past History Travel History Traveled to [place] past 21 day No Medical History Blood Transfusion Hx: No Neurological: NONE EENT: cataracts Cardiovascular: CAD, hypertension, hyperlipidemia Respiratory: NONE Gastrointestinal: NONE ([place] 2012), lower GI bleed Hepatic: NONE Renal: mild CKD Musculoskeletal: gout Psychiatric: anxiety (panic attacks) Endocrine: obesity Blood Disorders: NONE Cancer(s): NONE 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 Family History Relations & Conditions If Any: MOTHER, , Age 85; Cause: OBS (organic brain syndrome). FATHER, , Age 92; Cause: ASHD (arteriosclerotic heart disease). Psychosocial History Where Do You Live? Home Who Do You Live With? spouse (Lenora) Services at Home: None Primary Language: Beninese Smoking Status: Never Smoked ETOH Use: denies use Illicit Drug Use: denies illicit drug use Living Will? no Power of Offset Platemaker/HCP? no Other Social History: to Lenora. No cigs, EtOH , or drugs. 1 son & 1 dtr- [employer]. 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 Functional Ability ADLs Independent: dressing, eating, toileting, bathing. Ambulation: independent IADLs Independent: shopping, housework, finances, food prep, telephone, transportation , medication admin. 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 Constitutional: Denies: chills, diaphoresis, fever, malaise, weakness, unexplained weight loss. Cardiovascular: Reports: peripheral edema. Denies: chest pain, edema, orthopena, palpitations, syncope. Respiratory: Denies: SOB, cough, hemoptysis, orthopnea, sputum production, stridor, wheezing. GI: Reports: rectal bleeding & clots Denies: abdominal pain, bloating, constipation, distention, vomiting. Genitourinary: Reports: hesitation. Musculoskeletal: Reports: joint pain, joint swelling. Skin: Reports: change in skin color, change in hair/nails, dryness. Neurological/Psychological: Reports: anxiety. Denies: depressed, emotional problems, numbness. Hematologic/Endocrine: Denies: polyuria, polydipsia. Exam & Diagnostic Data Vital Signs and I&O Vital Signs Date Time Temp Pulse Resp B/P B/P Pulse O2 O2 Flow FiO2 Mean Ox Delivery Rate 05/16 2126 98.0 61 18 152/50 94 Room Air 05/16 2119 70 18 140/60 05/16 1835 98.7 72 18 162/68 99 Room Air 05/16 1711 98.7 72 18 162/68 99 Room Air 05/16 1233 99.0 60 17 156/67 98 Room Air Intake & Output 05/17 0400 05/16 1600 05/16 0400 05/15 1600 05/15 0400 05/14 1600 Intake Total 1420 Output Total Balance 1420 Intake, IV 1300 Intake, Oral 120 Patient 367 lb Weight Weight Bed scale Measurement Method Physical Exam: Well-developed, well-nourished, morbidly obese male in no apparent distress. Sclera anicteric. Conjunctiva pink. Oropharynx clear. No oral thrush. No aphthous ulcers. There is no adenopathy, thyromegaly, or JVD. No peripheral stigmata of inflammatory bowel disease or chronic liver disease on exam. No spiders on the anterior chest wall. No gynecomastia, aside from obesity. No CVA tenderness. Lungs: clear to A&P, wih slight decreased BS at the bases B/L. Healing midline CABG scar in sternum, with alexy. Heart exam: regular rate rhythm, S1 and S2, without any murmur. Abdominal exam: normal bowel sounds, soft obese belly, nontender, without guarding or rebound. No definite mass or organomegaly, within the limits of the body habitus. No fluid shift. No pulsatile mass. No epigastric bruit. Repeat digital rectal exam: deferred by pt , as done in [place] [facility], reportedly with small amount BRB then. Extremities: without cyanosis or clubbing. 2+ peripheral edema No palpable cords. DJD. No palmar erythema. No Dupuytren's contractures. Distal pulses 2+ bilaterally. DTRs 2+ bilaterally. Right handed. Motor 5/5 B/L. Alert and oriented x 3. No tremor. No asterixis. Results Pertinent Lab Results: Laboratory Tests 05/16 1226 Chemistry Sodium (137 - 145 mmol/L) 138 Potassium (3.5 - 5.1 mmol/L) 5.2 H Chloride (98 - 107 mmol/L) 103 Carbon Dioxide (22 - 30 mmol/L) 30 Anion Gap (5 - 16) 6 BUN (9 - 20 mg/dL) 33 H Creatinine (0.7 - 1.2 mg/dL) 1.3 H Estimated GFR (>60 ml/min) 54 L BUN/Creatinine Ratio (7 - 25 %) 25.4 H Glucose (65 - 99 mg/dL) 81 Calcium (8.4 - 10.2 mg/dL) 8.6 Total Bilirubin (0.2 - 1.3 mg/dL) 0.2 AST (17 - 59 U/L) 23 ALT (21 - 72 U/L) 37 Alkaline Phosphatase (< 127 U/L) 79 Troponin I (<0.11 ng/ml) 0.02 Total Protein (6.3 - 8.2 g/dL) 6.4 Albumin (3.5 - 5.0 g/dL) 3.1 L Globulin (1.9 - 4.2 gm/dL) 3.3 Albumin/Globulin Ratio (1.1 - 2.2 %) 0.9 L Coagulation PT (9.4 - 12.5 SEC) 15.0 H INR (0.90 - 1.17) 1.37 H APTT (25 - 37 SEC) 29 Hematology CBC w Diff NO MAN DIFF REQ WBC (4.8 - 10.8 /CUMM) 12.7 H RBC (4.70 - 6.10 /CUMM) 3.89 L Hgb (14.0 - 18.0 G/DL) 11.1 L Hct (42 - 52 %) 33.8 L MCV (80.0 - 94.0 FL) 87.0 MCH (27.0 - 31.0 PG) 28.6 MCHC (33.0 - 37.0 G/DL) 32.9 L RDW (11.5 - 14.5 %) 15.3 H Plt Count (130 - 400 /CUMM) 477 H MPV (7.4 - 10.4 FL) 7.7 Gran % (42.2 - 75.2 %) 84.6 H Lymphocytes % (20.5 - 51.1 %) 10.3 L Monocytes % (1.7 - 9.3 %) 4.3 Eosinophils % (0 - 5 %) 0.6 Basophils % (0.0 - 2.0 %) 0.2 Absolute Granulocytes (1.4 - 6.5 /CUMM) 10.8 H Absolute Lymphocytes (1.2 - 3.4 /CUMM) 1.3 Absolute Monocytes (0.10 - 0.60 /CUMM) 0.6 Absolute Eosinophils (0.0 - 0.7 /CUMM) 0.1 Absolute Basophils (0.0 - 0.2 /CUMM) 0 Imaging/Other Studies: 05/16/18: EKG- aflutter with 4:1 block @58, RBBB (? rhythm change). 05/16/18: CT CHEST, ABDOMEN AND PELVIS WITHOUT CONTRAST- IMPRESSION: Lack of intravenous contrast limits evaluation. Mild cardiomegaly with moderate circumferential pericardial effusion. Streaky atelectasis vs. consolidation in the left lower lobe and lingula. 3.7 cm hyperdense lesion exophytic from the lateral cortex of the right mid kidney. This could represent a solid renal mass or hyperdense cyst. There is soft tissue prominence in the left mid kidney, which could represent a mass. Recommend contrast-enhanced renal protocol CT or MRI for definitive characterization. Assessment/Plan Assessment/Recommendations: 72 y/o male, HTN, HLD, gout, morbid obesity, recently admitted to [facility] 04/06/18 - 04/10/18, with CP, progressive SOB, unstable angina, junctional bradycardia, Wenkebach (2nd degree AVB, Mobitz I), RBBB. Lyme titers were negative. There was a question as to whether the patient might need PPM. Echo showed mildly reduced LVEF at 50%, & nuclear study showed diminished apical perfusion. He subsequently had cardiac catheterization, showing triple-vessel disease, and had CABG 3 at [facility] approximately 2 weeks ago. He was on ECASA 81 mg daily. He was not on any additional anti-PLT agents, Plavix, A/C tx or NSAIDS. The patient stated the morning of 05/16/18, he had a small, brown BM, followed by BRBPR with clots in the toilet water. This was painless in nature. This was followed a few hours later by scant brown stool, but predominantly spontaneous rectal bleeding, of a smaller magnitude than the initial event. There was no melena, hematemesis, abdominal pain, rectal pain, CP, SOB, LOC, or palpitations. There was no rectal trauma. The patient denied any history of hemorrhoids. There was no FHx GI Ca, IBD, GI disease, or inherited liver disease. He claimed he had a baseline colonoscopy in [place], [place] 5 years ago (unsure as to by whom), done for a similar episode of rectal bleeding, & stated "there were no polyps, just blood pockets". When I asked him if the term diverticular bleed was used then, he was unsure. He had never been transfused, & claimed he did not become anemic after the CABG. he had mild diarrhea after the CABG, which resolved. His bowel habits were now otherwise normal, aside from the above bleeding. There was no constipation, obstipation, tenesmus, or change in stool caliber. He denied any GERD, odynophagia, dysphagia, nausea, vomiting, or early satiety. The patient has a history of panic attacks, which persisted off his Pravastatin. He has severe pedal edema, despite using compression stockings, & DJD. He denied any history of bleeding disorders or gross hematuria. He denied any hx AAA. Remote lap CCKY. No cigs or EtOH. Upon arrival to the [place] ER, 05/16/18 at 11:57 a.m., 156/67, P 60,R 17, T 99, O2 sat RA 98%. He was admitted to general medicine. I was not notified by the ER & was later contacted by the medical housestaff that p.m. There has been no recurrent bleeding since. There was no documented hypotension. 04/06/18: nl LFTs, with alb 3.5, glob 3.1, TChol 147, TG 192, HDL 26, LDL 83, TSHR 4.00, HgbA1C 5.9, troponin < 0.01, BNP 363. 04/09/18: WBC 7.5, H/H 13.1/40.1, MCV 84.4, RDW 15.6, PLT 191 04/10/18: BUN/Cr 30/1.2, nl lytes. 05/16/18: WBC 12.7 (85% gran/11 gran Ab), H/H 11.1/33.8, MCV 87, RDW 15.3, PLT 477, PT 15.0, INR 1.37, PTT 29, glucose 81, BUN/Cr 33/1.3, GFR 54, Na 138, K 5.2. HCO3 30,AG 6, Ca 8.6, alb 3.1, glob 3.3, TBil 0.2, alk phos 79, AST 23, ALT 37, troponin 0.02. 05/16/18: EKG- aflutter with 4:1 block @58, RBBB (? rhythm change). 05/16/18: CT CHEST, ABDOMEN AND PELVIS WITHOUT CONTRAST- IMPRESSION: Lack of intravenous contrast limits evaluation. Mild cardiomegaly with moderate circumferential pericardial effusion. Streaky atelectasis vs. consolidation in the left lower lobe and lingula. 3.7 cm hyperdense lesion exophytic from the lateral cortex of the right mid kidney. This could represent a solid renal mass or hyperdense cyst. There is soft tissue prominence in the left mid kidney, which could represent a mass. Recommend contrast-enhanced renal protocol CT or MRI for definitive characterization. Clinically, the patient most likely had a self-limited diverticular bleed > AVM. This sounded similar to the time he had his baseline and only colonoscopy in [place], [place] 5 years ago, where no polyps were found. Another option could be a hemorrhoidal bleed, doubt lesion or colitis. There was no pain to suggest a fissure. The patient's Hgb had gone from 13.1 to 11.1 in the past 5 weeks. Clinically, this was not a rapid transit UGIB. His BUN was relatively stable, with mild CKD. *I had a discussion with Dr. Stephens, regarding the issue of holding ECASA 81mg daiy 2 weeks post CABG. He told me he would be okay with this for 1 week. If needed, as the patient was revascularized post CABG, he told him that the patient would be cleared from a cardiac perspective for potential colonoscopy. Having stated that, as his sternal wound was still healing, unless the patient continued to have significant bleeding, I am leaning towards a conservative approach, with possible outpt colonoscopy. SUGGEST- Clears po for now. Will hold off on bowel prep for now, unless the patient has recurrent significant bleeding. T&C 4u PRBC. Check CBC Q8h for now. Keep Hgb > 8 (ASHD). O2 prn. 2 large bore IVs. If possible, try to get copies of the patient's previous colonoscopy done in [place] 2012 (? name of MD). If the patient develops active bleeding, call GI YOLI & move patient to ICU, with consideration for CTA abdomen, as GFR allows. Ecotrin 81 mg daily on hold for now x 1 week. The above was discussed with the patient and previously with the medical housestaff. Consider formal cardiology consult with ? rhythm change (aflutter with 4:1 block). *Additionally, follow-up with medical team for further workup of B/L renal masses vs. cysts seen on non- contrast CT, per [place] [facility]. Further GI recommendations to follow, depending on clinical course. Problem List: 1. GI bleed 2. ASHD (arteriosclerotic heart disease) 3. S/P CABG x 3 4. Morbid obesity 5. Arrhythmia Copies To: Eugenia LAZO,Boris; Otis LAZO,Benjy Prince; Yusef Hirsch APRN; Angelo LAZO PHD, Steve Pagan Consult Acknowledgment - Thank you for your consult request.
--- NOTE | 2018-05-17 02:46 | PN- Housestaff ---
See Addendum Subjective Follow-up For: GI bleed Subjective: Patient was seen and examined at bedside. He has had no new episodes of bleeding. He denies fever. chills, nausea, vomiting, dizziness or palpitations. The patient had a bowel movment in the morning. It was guaic negative. Review of Systems Constitutional: Reports: see HPI. Objective Last 24 Hrs of Vital Signs/I&O Vital Signs Date Time Temp Pulse Resp B/P B/P Pulse O2 O2 Flow FiO2 Mean Ox Delivery Rate 05/16 2126 98.0 61 18 152/50 94 Room Air 05/16 2119 70 18 140/60 05/16 1835 98.7 72 18 162/68 99 Room Air 05/16 1711 98.7 72 18 162/68 99 Room Air 05/16 1233 99.0 60 17 156/67 98 Room Air Intake & Output 05/17 0800 09 0000 05/16 1600 Intake Total 1420 Output Total Balance 1420 Intake, IV 1300 Intake, Oral 120 Patient 367 lb Weight Weight Bed scale Measurement Method Physical Exam General Appearance: Alert, Oriented X3, Cooperative, No Acute Distress Skin: No Rashes, No Breakdown Cardiovascular: Regular Rate, Normal S1, Normal S2 Lungs: Clear to Auscultation, Normal Air Movement Abdomen: Normal Bowel Sounds, Soft, No Tenderness Extremities: pedal edema 2+ Assessment/Plan Assessment: This is a 72 yo gentleman with PMH of hypertension, hyperlipidemia, CAD s/p triple CABG about 2 weeks ago is admitted to the [facility] service with cheif complaint of 2 episodes of painless bright red bleeding per rectum. He denies constipation or a history of hemorrhoids. He had a similar but more severe episode of bleeding about 5 years ago. A colonoscopy done at that time was apparently unrevelaing for the patient. The patient denies the use of blood thinners except Aspirin. He did haev severe diarrhea during the post op period which resolved on it own 2 days ago. He endorses getting up short of breath in the middle of the night. His symptoms are relieved sitting after sitting in the recliner. CT Abdomen and Chest Mild cardiomegaly with moderate circumferential pericardial effusion. Streaky atelectasis vs. consolidation in the left lower lobe and lingula. 3.7 cm hyperdense lesion exophytic from the lateral cortex of the right mid kidney. This could represent a solid renal mass or hyperdense cyst. There is soft tissue prominence in the left mid kidney, which could represent a mass. Recommend contrast-enhanced renal protocol CT or MRI for definitive characterization. Problems 1. GI bleed 2. Anemia with Thrombocytosis 3. Leukocytosis (reactive vs infectious) 4. TIANA 5. Hyperkalemia 6. PMH of Hypertension, hyperlipidemia, CAD s/p CABG We will admit the patient to the Gen Med floor. 1. GI bleed -Painless bleeding per rectum of unclear etiology, similar episode with unrevealing colonoscopy 5 years ago -Monitor vitals -Discontinue NS GI consult appreciated * Would hold the Aspirin for now * Clear liquid diet for now * Would try to get records from [facility] * Would monitor CBC q8 h * GI wants to manage him conservatively and pursue colonoscopy outpatient - 7cm exophtic hyperdense lesion of right kidney. Will advise the patient to follow up - PPI prophylaxis - GI consult placed 2.Anemia with Thrombocytosis -Normocytic normochromic anemia likely secondary to bleeding -Most likely reactive thrombocytosis -Will monitor CBC q8h 3. Leukocytosis -Reactive vs infection -Will repeat CBC 4. TIANA -Likely secondary to dehydration -Will start NS at 100cc an hour -Will recheck BMP in the AM 5. Hyperkalemia -Asymptomatic with no EKG changes -Will repeat BEP 6. Past Medical History of Hypertension and Hyperlipidemia -We will hold Aspirin for now. Can be safely help for upto a week per Dr. Stephens -Continue rest of the home meds DVT prophylaxis: ALPS only Code status: Full code Problem List: 1. Thrombocytosis 2. TIANA (acute kidney injury) 3. Hyperkalemia 4. GI bleed 5. Morbid obesity 6. Hyperlipidemia Pain Ratin Pain Location: none Pain Goal: Remain pain free Pain Plan: pathway Tomorrow's Labs & Rationales: cbc and bep
[2018-05-17 07:33] VITALS: BP 181/67
--- NOTE | 2018-05-17 07:43 | Discharge Summary ---
Hospital Course Allergies: Coded Allergies: Beta-Blockers (Beta-Adrenergic Bloc (Severe, PSYCHOTIC EPISODE 05/16/18) pravastatin (Severe, PANIC ATTACKS 05/16/18)
[2018-05-17 09:55] LABS: ABSOLUTE BASOPHIL COUNT 0 /CUMM (0.0-0.2); ABSOLUTE EOSINOPHIL COUNT 0.1 /CUMM (0.0-0.7); ABSOLUTE GRANULOCYTE CT 8.5 /CUMM (1.4-6.5); ABSOLUTE LYMPH COUNT 1.1 /CUMM (1.2-3.4); ABSOLUTE MONOCYTE COUNT 0.4 /CUMM (0.10-0.60); BASOPHIL % 0.3 % (0.0-2.0); EOSINOPHIL % 0.6 % (0-5); GRANULOCYTE % 84.3 % (42.2-75.2); HEMATOCRIT 34.8 % (42-52); MEAN CORPUSCULAR HGB 28.3 PG (27.0-31.0); MEAN CORPUSCULAR HGB CONC 32.5 G/DL (33.0-37.0); MEAN PLATELET VOLUME 9.2 FL (7.4-10.4); PLATELET COUNT 331 /CUMM (130-400); RBC DISTRIBUTION WIDTH 15.6 % (11.5-14.5); RED BLOOD CELL CT 3.99 /CUMM (4.70-6.10); WHITE BLOOD CELL COUNT 10.1 /CUMM (4.8-10.8)
--- NOTE | 2018-05-17 13:06 | Cons- Cardiology ---
General Information and HPI Consulting Request Date of Consult: 05/17/18 Requested By: Eugenia LAZO,Boris Reason for Consult: Atrial flutter of unclear duration Source of Information: patient, old records Exam Limitations: no limitations History of Present Illness: The patient is a 72-year-old male who is followed by Dr. Steve Stephesn. The patient's past medical history is remarkable for hypertension, hyperlipidemia, recent bypass surgery 3 at [facility], etc. The patient is admitted to the hospital via the emergency room with chief complaints of rectal bleeding. Apparently he noticed bright red blood with clots on the day of admission. A few hours later, he had recurrent bleeding. He ultimately came to the emergency room. The patient notes that a colonoscopy at [facility] after a rectal bleed 5 years ago showed possible diverticular bleeding. Since discharge from [facility], the patient has had some shortness of breath as well. He has noted difficulty sleeping. No other definite cardiac symptoms noted except for lower extremity edema. This morning, Herbert Olivares MD noted that the patient's admission EKG showed atrial flutter with a controlled ventricular rate. Apparently this was not noted on admission. The patient is asymptomatic and is not aware of the arrhythmia. In view of this fact, this would be considered atrial flutter of unclear duration. I believe it would be unlikely he was discharged from [facility] with this arrhythmia since he was not anticoagulated at the time of discharge. He was, according to his , discharged on amiodarone for arrhythmia prevention however. Allergies/Medications Allergies: Coded Allergies: Beta-Blockers (Beta-Adrenergic Bloc (Severe, PSYCHOTIC EPISODE 05/16/18) pravastatin (Severe, PANIC ATTACKS 05/16/18) Home Med List: Amiodarone (Cordarone) 200 MG TAB 1 TAB PO BID HEART (Reported) Aspirin (Ecotrin*) 81 MG TABLET.DR 1 TAB PO DAILY HEART/BLOOD (Reported) Furosemide 40 MG TABLET 1 TAB PO DAILY WATER RETENTION (Reported) Lisinopril 20 MG TABLET 1 TAB PO DAILY High Blood Pressure Oxycodone HCl 5 MG TABLET 1 TAB PO Q6-PRN PRN pain (Reported) Current Medications: Current Medications Sig/Brittany Start time Last Medication Dose Route Stop Time Status Admin Acetaminophen 650 MG Q6P PRN 05/16 1615 AC PO Acetaminophen 1,000 MG Q6P PRN 05/16 1615 AC IV Amiodarone HCl 200 MG BID 05/16 2100 AC 05/17 PO 0916 Lisinopril 20 MG DAILY 05/17 09 CAN PO Lisinopril 20 MG DAILY 05/17 0900 AC 05/17 PO 0916 Pantoprazole Sodium 40 MG DAILY 05/16 1745 AC 05/17 IV 0914 Sodium Chloride 1,000 ML BOLUS ONE 05/16 1730 DC 05/16 IV 05/16 1829 1730 Sodium Chloride 1,000 ML .Q10H 05/16 1615 DC 05/17 IV 0604 Past History Travel History Traveled to [place] past 21 day No Medical History Blood Transfusion Hx: No Neurological: NONE EENT: cataracts Cardiovascular: CAD, hypertension, hyperlipidemia Respiratory: NONE Gastrointestinal: NONE (Roxi 2012), lower GI bleed Hepatic: NONE Renal: mild CKD Musculoskeletal: gout Psychiatric: anxiety (panic attacks) Endocrine: obesity Blood Disorders: NONE Cancer(s): NONE 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 Family History Relations & Conditions If Any: MOTHER, , Age 85; Cause: OBS (organic brain syndrome). FATHER, , Age 92; Cause: ASHD (arteriosclerotic heart disease). Psychosocial History Where Do You Live? Home Who Do You Live With? spouse (Lenora) Services at Home: None Primary Language: Hong Konger Smoking Status: Never Smoked ETOH Use: denies use Illicit Drug Use: denies illicit drug use Living Will? no Power of Lapel Stitcher/HCP? no Other Social History: to [place]. No cigs, EtOH , or drugs. 1 son & 1 dtr- [employer]. 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 Functional Ability ADLs Independent: dressing, eating, toileting, bathing. Ambulation: independent IADLs Independent: shopping, housework, finances, food prep, telephone, transportation , medication admin. 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 ECHO Results (as available) Date of last Echo 04/07/18 EF% 50 Exam & Diagnostic Data Vital Signs and I&O Vital Signs Date Time Temp Pulse Resp B/P B/P Pulse O2 O2 Flow FiO2 Mean Ox Delivery Rate 05/17 916 56 181/67 09/01 0916 56 181/67 05/17 0733 98.2 56 18 181/67 96 05/16 2126 98.0 61 18 152/50 94 Room Air 05/16 2119 70 18 140/60 05/16 1835 98.7 72 18 162/68 99 Room Air 05/16 1711 98.7 72 18 16268 99 Room Air Intake & Output 05/17 1600 05/17 0800 05/17 0000 05/16 1600 05/16 0800 05/16 0000 Intake Total 800 1420 Output Total Balance 800 1420 Intake, IV 800 1300 Intake, Oral 120 Number 1 Bowel Movements Patient 365 lb 367 lb Weight Weight Bed scale Measurement Method Physical Exam: General Appearance Alert, Oriented X3, Cooperative, No Acute Distress, overweight Skin bilateral vioalaceous rash on the cheeks Skin Temp/Moisture Exam: Warm/Dry Neck Supple, JVP normal, carotids normal bilaterally Cardiovascular Regular Rate, Normal S1, Normal S2, 1/6 systolic murmur Lungs Clear to Auscultation, Normal Air Movement Abdomen Normal Bowel Sounds, Soft, No Tenderness, No Hepatospenomegaly Extremities No Clubbing, No Cyanosis, pedal edema 2+, stasis change Vascular Normal Pulses, Pulses Symmetrical Labs/Kartik Results: Laboratory Tests 05/17 05/16 0859 1226 Chemistry Sodium (137 - 145 mmol/L) 139 138 Potassium (3.5 - 5.1 mmol/L) 5.3 H 5.2 H Chloride (98 - 107 mmol/L) 108 H 103 Carbon Dioxide (22 - 30 mmol/L) 21 L 30 Anion Gap (5 - 16) 10 6 BUN (9 - 20 mg/dL) 32 H 33 H Creatinine (0.7 - 1.2 mg/dL) 1.2 1.3 H Estimated GFR (>60 ml/min) 60 54 L BUN/Creatinine Ratio (7 - 25 %) 26.7 H 25.4 H Glucose (65 - 99 mg/dL) 81 Calcium (8.4 - 10.2 mg/dL) 8.6 Total Bilirubin (0.2 - 1.3 mg/dL) 0.2 AST (17 - 59 U/L) 23 ALT (21 - 72 U/L) 37 Alkaline Phosphatase (< 127 U/L) 79 Troponin I (<0.11 ng/ml) 0.02 Total Protein (6.3 - 8.2 g/dL) 6.4 Albumin (3.5 - 5.0 g/dL) 3.1 L Globulin (1.9 - 4.2 gm/dL) 3.3 Albumin/Globulin Ratio (1.1 - 2.2 %) 0.9 L Coagulation PT (9.4 - 12.5 SEC) 15.0 H INR (0.90 - 1.17) 1.37 H APTT (25 - 37 SEC) 29 Hematology CBC w Diff NO MAN DIFF REQ NO MAN DIFF REQ WBC (4.8 - 10.8 /CUMM) 10.1 12.7 H RBC (4.70 - 6.10 /CUMM) 3.99 L 3.89 L Hgb (14.0 - 18.0 G/DL) 11.3 L 11.1 L Hct (42 - 52 %) 34.8 L 33.8 L MCV (80.0 - 94.0 FL) 87.0 87.0 MCH (27.0 - 31.0 PG) 28.3 28.6 MCHC (33.0 - 37.0 G/DL) 32.5 L 32.9 L RDW (11.5 - 14.5 %) 15.6 H 15.3 H Plt Count (130 - 400 /CUMM) 331 477 H MPV (7.4 - 10.4 FL) 9.2 7.7 Gran % (42.2 - 75.2 %) 84.3 H 84.6 H Lymphocytes % (20.5 - 51.1 %) 10.5 L 10.3 L Monocytes % (1.7 - 9.3 %) 4.3 4.3 Eosinophils % (0 - 5 %) 0.6 0.6 Basophils % (0.0 - 2.0 %) 0.3 0.2 Absolute Granulocytes (1.4 - 6.5 /CUMM) 8.5 H 10.8 H Absolute Lymphocytes (1.2 - 3.4 /CUMM) 1.1 L 1.3 Absolute Monocytes (0.10 - 0.60 /CUMM) 0.4 0.6 Absolute Eosinophils (0.0 - 0.7 /CUMM) 0.1 0.1 Absolute Basophils (0.0 - 0.2 /CUMM) 0 0 Diagnostic Data EKG Results Atrial fibrillation/atrial flutter with controlled ventricular rate. Nonspecific ST-T changes. This arrhythmia is new since the prior available EKG Other Results Chest CT: FINDINGS: CHEST: LUNG: There is mild atelectasis of the right lung. There is streaky atelectasis vs. consolidation in the left lower lobe and lingula with minimal atelectasis in the left upper lobe. MEDIASTINUM: Mild cardiomegaly. Moderate circumferential pericardial effusion. Dense left anterior descending and circumflex coronary artery calcification. There is calcification of the proximal right coronary artery as well. There are sternal wires and mediastinal vascular clips. Normal caliber thoracic aorta. PLEURA: Trace left pleural effusion. CHEST WALL/AXILLA: No axillary lymphadenopathy. ABDOMEN/PELVIS: LIVER, GALLBLADDER, AND BILIARY TREE: Limited noncontrast evaluation of the liver is normal. Status post cholecystectomy. No biliary ductal dilatation. PANCREAS: Normal; no mass or surrounding fluid. SPLEEN: Normal size. No focal lesion. ADRENAL GLANDS: Normal; no mass. KIDNEYS AND URETERS: 3.7 cm hyperdense lesion exophytic from the lateral cortex of the right mid kidney. No hydronephrosis or calculi. Left kidney is slightly atrophic. There is soft tissue prominence in the left mid kidney. GASTROINTESTINAL TRACT: Stomach is collapsed. The small bowel is nondilated. Although the appendix is not definitely seen, there are no right lower quadrant inflammatory changes to suggest acute appendicitis. No evidence of colitis or diverticulitis. ABDOMINAL WALL: Fat-containing right inguinal hernia. LYMPHOVASCULAR STRUCTURES: No lymphadenopathy. The aorta is unremarkable. BLADDER: No focal mass or wall thickening seen. No bladder calculi. PELVIC VISCERA: The prostate and seminal vesicles are normal. OSSEOUS STRUCTURES: Multilevel degenerative changes of the thoracolumbar spine. Degenerative changes of the hips and sacroiliac joints. Recent prior sternotomy with intact sternal wires. IMPRESSION: Lack of intravenous contrast limits evaluation. Mild cardiomegaly with moderate circumferential pericardial effusion. Streaky atelectasis vs. consolidation in the left lower lobe and lingula. 3.7 cm hyperdense lesion exophytic from the lateral cortex of the right mid kidney. This could represent a solid renal mass or hyperdense cyst. There is soft tissue prominence in the left mid kidney, which could represent a mass. Recommend contrast-enhanced renal protocol CT or MRI for definitive characterization. Assessment/Plan Assessment/Plan Assessment: 1. Rectal bleeding 2. Abnormal ECG with atrial flutter of unclear duration; controlled rate 3. Known coronary disease, status post triple bypass surgery about 3 weeks ago at [facility] 4. Obesity 5. Sleep apnea 6. Mild normocytic anemia 7. Mild hyperkalemia 8. Mild AK I-resolved Recommendations: -In view of the fact that the patient has atrial flutter, with controlled rate, of unclear duration I would transfer the patient to [address] [place] [address] for monitoring of his rate and rhythm. -Continue regular medications including amiodarone 200 mg twice daily -Echocardiogram to rule out any new structural heart disease -In view of the patient's lower GI bleeding, the patient cannot be anticoagulated at the present time. Once we monitor the patient's rhythm and rate over the next 24 hours, further plans can be discussed with GI at that time. -Optimize metabolic parameters -Please check TSH Consult Acknowledgment - Thank you for your consult request.
[2018-05-17 14:58] VITALS: BP 158/70
[2018-05-17 23:07] VITALS: BP 154/60
[2018-05-18 06:05] VITALS: BP 148/70
--- NOTE | 2018-05-18 08:37 | PN- Housestaff ---
Gianfranco Valle 05/18/18 0836: Subjective Follow-up For: GI bleed Subjective: Overnight patient was in atrial flutter with heart rate ranged between 38-64. This morning patient is complaining of some anxiety and lack of sleep. Patient states that he did not have a good night sleep last night because he felt anxious, states he has been having a history since starting a statin that "statin keeps an wired up". Patient states that he had one bowel movement this morning which was negative for blood Review of Systems Constitutional: Denies: chills, diaphoresis, fever. Cardiovascular: Denies: chest pain, palpitations. Respiratory: Denies: cough, short of breath. Gastrointestinal: Denies: abdominal pain, melena, bloody stool, changes in stool. Objective Last 24 Hrs of Vital Signs/I&O Vital Signs Date Time Temp Pulse Resp B/P B/P Pulse O2 O2 Flow FiO2 Mean Ox Delivery Rate 05/18 0819 54 150/70 05/18 0605 97.9 59 18 148/70 97 Room Air 05/18 0000 94 Room Air 05/17 2307 98.3 52 18 154/60 94 Room Air 05/17 2049 64 174/60 05/17 1458 98.7 55 18 158/70 97 Room Air 05/17 0916 56 181/67 05/17 0916 56 181/67 Intake & Output 05/18 1600 05/18 0800 05/18 0000 Intake Total 200 400 Output Total Balance 200 400 Intake, Oral 200 400 Number 1 Bowel Movements Patient 371 lb Weight Physical Exam General Appearance: Alert, Oriented X3, Cooperative Neck: Supple, No JVD Cardiovascular: Regular Rate, Normal S1, Normal S2 Lungs: Clear to Auscultation, Normal Air Movement Abdomen: Normal Bowel Sounds, Soft, No Tenderness Extremities: No Cyanosis, Normal Pulses, +2 pitting ederma bilat. Current Medications: Current Medications Sig/Brittany Start time Last Medication Dose Route Stop Time Status Admin Acetaminophen 650 MG Q6P PRN 05/16 161 AC PO Acetaminophen 1,000 MG Q6P PRN 05/16 161 AC IV Amiodarone HCl 200 MG BID 05/16 2100 AC 05/17 PO 204 Lisinopril 20 MG DAILY 05/17 09 AC 05/18 PO 818 Pantoprazole Sodium 40 MG DAILY 05/16 1745 AC 05/18 IV 818 Assessment/Plan Assessment: This is a 72 yo gentleman with PMH of hypertension, hyperlipidemia, CAD s/p triple CABG about 2 weeks ago is admitted to the [facility] service with cheif complaint of 2 episodes of painless bright red bleeding per rectum. He denies constipation or a history of hemorrhoids. He had a similar but more severe episode of bleeding about 5 years ago. A colonoscopy done at that time was apparently unrevelaing for the patient. The patient denies the use of blood thinners except Aspirin. He did haev severe diarrhea during the post op period which resolved on it own 2 days ago. He endorses getting up short of breath in the middle of the night. His symptoms are relieved sitting after sitting in the recliner. CT Abdomen and Chest Mild cardiomegaly with moderate circumferential pericardial effusion. Streaky atelectasis vs. consolidation in the left lower lobe and lingula. 3.7 cm hyperdense lesion exophytic from the lateral cortex of the right mid kidney. This could represent a solid renal mass or hyperdense cyst. There is soft tissue prominence in the left mid kidney, which could represent a mass. Recommend contrast-enhanced renal protocol CT or MRI for definitive characterization. Problems 1. GI bleed 2. Anemia with Thrombocytosis 3. Leukocytosis (reactive vs infectious) 4. TIANA 5. Hyperkalemia 6. PMH of Hypertension, hyperlipidemia, CAD s/p CABG 7. Anxiety 1. GI bleed -Painless bleeding per rectum of unclear etiology, similar episode with unrevealing colonoscopy 5 years ago -Monitor vitals -Discontinue NS GI consult appreciated * Would hold the Aspirin for now * Clear liquid diet for now, NPO at midnight for colonoscopy on 05/19/18 * Would try to get records from [facility] * Would monitor CBC q8 h - 7cm exophtic hyperdense lesion of right kidney. Will advise the patient to follow up - PPI prophylaxis - GI consult placed 2.Anemia with Thrombocytosis -Normocytic normochromic anemia likely secondary to bleeding -Most likely reactive thrombocytosis -Will monitor CBC q8h 3. Leukocytosis -Reactive vs infection -Will repeat CBC 4. TIANA - resolved -Likely secondary to dehydration -will continue to monitor 5. Hyperkalemia -Asymptomatic with no EKG changes -Will repeat BEP 6. Past Medical History of Hypertension and Hyperlipidemia -We will hold Aspirin for now. Consider beginning IV heparin depending on the results of Colonoscopy. monitor patient on IV heparin for 24 hours before transitioning to PO anticoagulation. 7. Anxiety -Xanax 0.25mg at bed time -Continue rest of the home meds DVT prophylaxis: ALPS only Code status: Full code Problem List: 1. Atrial flutter Pain Ratin Pain Location: n/a Pain Goal: Remain pain free Pain Plan: tyelnol Tomorrow's Labs & Rationales: cbc, bep Javier Avila MD 05/18/18 1307: Attending MD Review Statement Attending Statement Attending MD Statement: examined this patient, discuss w/resident/PA/SECTION HAND, agreed w/resident/PA/SECTION HAND, reviewed EMR data (avail) Attending Assessment/Plan: Patient seen and examined at bedside. Agree with resident assessment and plan. Patient is asymptomatic and feels well. No further signs of bleeding. Had a normal BM this morning. Hgb stable at 11.3. Telemetry shows afib. Plan - Continue on telemetry - Follow cardiology and GI recommendations - Monitor CBC daily - Clear liquid diet - Bowel prep tonight - Colonoscopy tomorrow - Continue Amiodarone - Monitor off ASA and anti-coagulation due to lower GI bleed - Continue home medications - DVT PPx
--- NOTE | 2018-05-18 10:36 | PN- Gastroenterology ---
Assessment/Plan GI Assessment/Recommendations: 72 y/o male, HTN, HLD, gout, morbid obesity, recently admitted to [facility] 04/06/18 - 04/10/18, with CP, progressive SOB, unstable angina, junctional bradycardia, Wenkebach (2nd degree AVB, Mobitz I), RBBB. Lyme titers were negative. There was a question as to whether the patient might need PPM. Echo showed mildly reduced LVEF at 50%, & nuclear study showed diminished apical perfusion. He subsequently had cardiac catheterization, showing triple-vessel disease, and had CABG 3 at [facility] approximately 2 weeks ago. He was on ECASA 81 mg daily. He was not on any additional anti-PLT agents, Plavix, A/C tx or NSAIDS. The patient stated the morning of 05/16/18, he had a small, brown BM, followed by BRBPR with clots in the toilet water. This was painless in nature. This was followed a few hours later by scant brown stool, but predominantly spontaneous rectal bleeding, of a smaller magnitude than the initial event. There was no melena, hematemesis, abdominal pain, rectal pain, CP, SOB, LOC, or palpitations. There was no rectal trauma. The patient denied any history of hemorrhoids. There was no FHx GI Ca, IBD, GI disease, or inherited liver disease. He claimed he had a baseline colonoscopy in [place], [place] 5 years ago (unsure as to by whom), done for a similar episode of rectal bleeding, & stated "there were no polyps, just blood pockets". When I asked him if the term diverticular bleed was used then, he was unsure. He had never been transfused, & claimed he did not become anemic after the CABG. he had mild diarrhea after the CABG, which resolved. His bowel habits were now otherwise normal, aside from the above bleeding. There was no constipation, obstipation, tenesmus, or change in stool caliber. He denied any GERD, odynophagia, dysphagia, nausea, vomiting, or early satiety. The patient has a history of panic attacks, which persisted off his Pravastatin. He has severe pedal edema, despite using compression stockings, & DJD. He denied any history of bleeding disorders or gross hematuria. He denied any hx AAA. Remote lap CCKY. No cigs or EtOH. Upon arrival to the [facility], 05/16/18 at 11:57 a.m., 156/67, P 60,R 17, T 99, O2 sat RA 98%. He was admitted to general medicine. I was not notified by the ER & was later contacted by the medical housestaff that p.m. There has been no recurrent bleeding since. There was no documented hypotension. 04/06/18: nl LFTs, with alb 3.5, glob 3.1, TChol 147, TG 192, HDL 26, LDL 83, TSHR 4.00, HgbA1C 5.9, troponin < 0.01, BNP 363. 04/09/18: WBC 7.5, H/H 13.1/40.1, MCV 84.4, RDW 15.6, PLT 191 04/10/18: BUN/Cr 30/1.2, nl lytes. 05/16/18: WBC 12.7 (85% gran/11 gran Ab), H/H 11.1/33.8, MCV 87, RDW 15.3, PLT 477, PT 15.0, INR 1.37, PTT 29, glucose 81, BUN/Cr 33/1.3, GFR 54, Na 138, K 5.2. HCO3 30,AG 6, Ca 8.6, alb 3.1, glob 3.3, TBil 0.2, alk phos 79, AST 23, ALT 37, troponin 0.02. 05/16/18: EKG- *aflutter with 4:1 block @58, RBBB (? rhythm change). 05/16/18: CT CHEST, ABDOMEN AND PELVIS WITHOUT CONTRAST- IMPRESSION: Lack of intravenous contrast limits evaluation. Mild cardiomegaly with moderate circumferential pericardial effusion. Streaky atelectasis vs. consolidation in the left lower lobe and lingula. 3.7 cm hyperdense lesion exophytic from the lateral cortex of the right mid kidney. This could represent a solid renal mass or hyperdense cyst. There is soft tissue prominence in the left mid kidney, which could represent a mass. Recommend contrast-enhanced renal protocol CT or MRI for definitive characterization. Clinically, the patient most likely had a self-limited diverticular bleed > AVM. This sounded similar to the time he had his baseline and only colonoscopy in [place] 5 years ago, where no polyps were found. Another option could be a hemorrhoidal bleed, doubt lesion or colitis. There was no pain to suggest a fissure. The patient's Hgb had gone from 13.1 to 11.1 in the past 5 weeks. Clinically, this was not a rapid transit UGIB. His admission BUN was relatively stable, with mild CKD. *I had a discussion with Dr. Stephens, regarding the issue of holding ECASA 81mg daiy 2 weeks post CABG. He told me he would be okay with this for 1 week. If needed, as the patient was revascularized post CABG, he told him that the patient would be cleared from a cardiac perspective for potential colonoscopy. Having stated that, as his sternal wound was still healing, unless the patient continued to have significant bleeding, I am leaning towards a conservative approach, with possible outpt colonoscopy. *The other issue is the ? new onset aflutter & if this persists, could require A/C tx, potentially warranting colonoscopy sooner rather than later. Cardiology consult was advised. 05/17/18: 0859-WBC 10.1, H/H 11.3/34.8, MCV 87, RDW 15.6, PLT 331, BUN/Cr 32/1.2 , GFR 60 (baseline), Na 139, K 5.3, HCO3 21, AG 10. *Dr. Brown's GI consult of 05/17/18 was reviewed and the case was discussed with him in detail. The patient was transferred to telemetry later that day for A. fib/flutter. The patient was cleared by cardiology for colonoscopy, post CABG 2 weeks [employer]. Cardiology is okay with holding Ecotrin for now. The patient clinically stopped bleeding. In fact, he tolerated solids po for dinner & had a brown OB-neg BM the morning of 05/18/18. His H/H remained relatively stable. His mildly decreased GFR had normalized (regarding potential for CTA, if active rebleed).*The major issue at the moment is whether the patient can be anticoagulated for his A. fib/flutter. Additionally, if he were to be cardioverted, it would require A/C therapy for at least 1 month afterwards, forcing the hand of performing colonoscopy sooner rather than later. *As of 05/18/18, patient was asymptomatic, except for anxiety and panic attacks. He remained in A. fib/flutter with HR 50's (on Amiodarone). He was mildly HTN ( 150/70) & afebrile, with O2 sat RA 97%. He denied any CP, SOB, palpitations, abdominal pain, nausea, vomiting, hematemesis, melena, or recurrent rectal bleeding. He had no neurologic symptoms. He was switched to clears po in anticipation of a bowel prep later today, based on the need to clear his colon prior to A/C therapy. *Labs had not yet been drawn 05/18/18, due to poor access. (He had a peripheral line in his right foot & if he actively rebled, would need a central line). *The risks & benefits of colonoscopy were discussed with the patient in great detail in the presence of his , Lenora,and informed consent was obtained from him, 05/18/18. *A/P: Clinically LGIB-> prob self-limited diverticular > AVM- stable, ASHD, CABG morbid obesity, afib/flutter. SUGGEST- Clears po, then NPO after 11:59 p.m. tonight for colonoscopy on 05/19/18. * Needs 1 gallon GoLytely po today, starting at 2 p.m., over 4-5 hrs. T&C 4u PRBC. Check CBC QD for now (*access is a problem). *Keep Hgb > 8 (+ ASHD). O2 prn. * *2 large bore IVs (*may need IJ line placed preop). If possible, try to get copies of the patient's previous colonoscopy done in [place] 2012 (? name of MD). If the patient develops active bleeding, call GI YOLI & move patient to ICU , with consideration for CTA abdomen, as GFR allows (GFR now normal). Ecotrin 81 mg daily on hold for now x 1 week. Assuming the colonoscopy is stable ( probable resolved diverticular bleed > AVM), would carefully start A/C tx postop , for A. fib/flutter. *Additionally, follow-up with medical team for further workup of B/L renal masses vs. cysts seen on non-contrast CT, per Tl RAND. * The case was discussed with Dr. Brown & with the medical housestaff. *The above numerous issues were again discussed with the patient & his , Lenora, at the bedside in great detail, on 05/18/18. The patient's was also given my office number for future reference. Further GI recommendations to follow, depending on clinical course. Problem List: 1. GI bleed 2. ASHD (arteriosclerotic heart disease) 3. S/P CABG x 3 4. Morbid obesity 5. Atrial flutter Subjective Subjective: 05/17/18: 0859-WBC 10.1, H/H 11.3/34.8, MCV 87, RDW 15.6, PLT 331, BUN/Cr 32/1.2 , GFR 60 (baseline), Na 139, K 5.3, HCO3 21, AG 10. *Dr. Brown's GI consult of 05/17/18 was reviewed and the case was discussed with him in detail. The patient was transferred to telemetry later that day for A. fib/flutter. The patient was cleared by cardiology for colonoscopy, post CABG 2 weeks [employer]. Cardiology is okay with holding Ecotrin for now. The patient clinically stopped bleeding. In fact, he tolerated solids po for dinner & had a brown OB-neg BM the morning of 05/18/18. His H/H remained relatively stable. His mildly decreased GFR had normalized (regarding potential for CTA, if active rebleed).*The major issue at the moment is whether the patient can be anticoagulated for his A. fib/flutter. Additionally, if he were to be cardioverted, it would require A/C therapy for at least 1 month afterwards, forcing the hand of performing colonoscopy sooner rather than later. *As of 05/18/18, patient was asymptomatic, except for anxiety and panic attacks. He remained in A. fib/flutter with HR 50's (on Amiodarone). He was mildly HTN ( 150/70) & afebrile, with O2 sat RA 97%. He denied any CP, SOB, palpitations, abdominal pain, nausea, vomiting, hematemesis, melena, or recurrent rectal bleeding. He had no neurologic symptoms. He was switched to clears po in anticipation of a bowel prep later today, based on the need to clear his colon prior to A/C therapy. *Labs had not yet been drawn 05/18/18, due to poor access. (He had a peripheral line in his right foot & if he actively rebled, would need a central line). Review of Systems: Review of Systems: Full 14 point ROS otherwise noncontributory, and as above. Constitutional: Denies: chills, diaphoresis, fever, malaise, weakness, unexplained weight loss. Cardiovascular: Reports: peripheral edema. Denies: chest pain, orthopena, palpitations, syncope. Respiratory: Denies: SOB, cough, hemoptysis, orthopnea, sputum production, stridor, wheezing. GI: Reports: rectal bleeding & clots-> resolved Denies: abdominal pain, bloating, constipation, distention, vomiting. Genitourinary: Reports: hesitation. Musculoskeletal: Reports: joint pain, joint swelling. Skin: Denies: change in skin color, change in hair/nails, dryness. Neurological/Psychological: Reports: anxiety & panic attacks. Denies: depressed, numbness. Hematologic/Endocrine: Denies: polyuria, polydipsia. Objective Vital Signs and I&Os Vital Signs Date Time Temp Pulse Resp B/P B/P Pulse O2 O2 Flow FiO2 Mean Ox Delivery Rate 05/18 0946 54 150/70 05/18 0819 54 150/70 05/18 0605 97.9 59 18 148/70 97 Room Air 05/18 0000 94 Room Air 05/17 2307 98.3 52 18 154/60 94 Room Air 05/17 2049 64 174/60 05/17 1458 98.7 55 18 158/70 97 Room Air Intake & Output 05/18 1600 05/18 0400 05/17 1600 05/17 0400 05/16 1600 05/16 0400 Intake Total 681 662 3242 1420 Output Total 500 Balance 200 677 540 1083 Intake, IV 800 1300 Intake, Oral 200 400 600 120 Number 1 1 Bowel Movements Output, Urine 500 Patient 371 lb 365 lb 367 lb Weight Weight Bed scale Measurement Method Physical Exam: Well-developed, well-nourished, morbidly obese male in no apparent distress. Sclera anicteric. Conjunctiva pink. Oropharynx clear. No oral thrush. No aphthous ulcers. There is no adenopathy, thyromegaly, or JVD. No peripheral stigmata of inflammatory bowel disease or chronic liver disease on exam. No spiders on the anterior chest wall. No gynecomastia, aside from obesity. No CVA tenderness. Lungs: clear to A&P, wih slight decreased BS at the bases B/L. Healing midline CABG scar in sternum, with alexy. No flail chest. Heart exam: regular rate rhythm, S1 and S2, without any murmur. Abdominal exam: normal bowel sounds, soft obese belly, nontender, without guarding or rebound. Reducible ? RIH. Otherwise, no definite mass or organomegaly, within the limits of the body habitus. No fluid shift. No pulsatile mass. No epigastric bruit. Repeat digital rectal exam: deferred by pt, as done in [facility] on admission, reportedly with small amount BRB then (had brown, OB-neg stool post BM 05/18/18) . Extremities: without cyanosis or clubbing. > 2+ peripheral edema No palpable cords. Poor IV access- line in right foot. DJD. No palmar erythema. No Dupuytren 's contractures. Distal pulses 2+ bilaterally. DTRs 2+ bilaterally. Right handed. Motor 5/5 B/L. Alert and oriented x 3. No tremor. No asterixis. Current Medications: Current Medications Sig/Brittany Start time Last Medication Dose Route Stop Time Status Admin Acetaminophen 650 MG Q6P PRN 05/16 1615 AC PO Acetaminophen 1,000 MG Q6P PRN 05/16 1615 AC IV Alprazolam 0.25 MG ONE TIME PRN 05/18 0945 AC PO 05/18 2300 Amiodarone HCl 200 MG BID 05/16 2100 AC 05/17 PO 2049 Lisinopril 20 MG DAILY 05/17 0900 AC 05/18 PO 0819 Pantoprazole Sodium 40 MG DAILY 05/16 1745 AC 05/18 IV 0819 Results Pertinent Lab Results: Laboratory Tests 05/17 05/16 0859 1226 Chemistry Sodium (137 - 145 mmol/L) 139 138 Potassium (3.5 - 5.1 mmol/L) 5.3 H 5.2 H Chloride (98 - 107 mmol/L) 108 H 103 Carbon Dioxide (22 - 30 mmol/L) 21 L 30 Anion Gap (5 - 16) 10 6 BUN (9 - 20 mg/dL) 32 H 33 H Creatinine (0.7 - 1.2 mg/dL) 1.2 1.3 H Estimated GFR (>60 ml/min) 60 54 L BUN/Creatinine Ratio (7 - 25 %) 26.7 H 25.4 H Glucose (65 - 99 mg/dL) 81 Calcium (8.4 - 10.2 mg/dL) 8.6 Magnesium (1.6 - 2.3 mg/dL) 2.2 Total Bilirubin (0.2 - 1.3 mg/dL) 0.2 AST (17 - 59 U/L) 23 ALT (21 - 72 U/L) 37 Alkaline Phosphatase (< 127 U/L) 79 Troponin I (<0.11 ng/ml) 0.02 Total Protein (6.3 - 8.2 g/dL) 6.4 Albumin (3.5 - 5.0 g/dL) 3.1 L Globulin (1.9 - 4.2 gm/dL) 3.3 Albumin/Globulin Ratio (1.1 - 2.2 %) 0.9 L TSH (0.270 - 4.200 uIU/mL) 6.910 H Coagulation PT (9.4 - 12.5 SEC) 15.0 H INR (0.90 - 1.17) 1.37 H APTT (25 - 37 SEC) 29 Hematology CBC w Diff NO MAN DIFF REQ NO MAN DIFF REQ WBC (4.8 - 10.8 /CUMM) 10.1 12.7 H RBC (4.70 - 6.10 /CUMM) 3.99 L 3.89 L Hgb (14.0 - 18.0 G/DL) 11.3 L 11.1 L Hct (42 - 52 %) 34.8 L 33.8 L MCV (80.0 - 94.0 FL) 87.0 87.0 MCH (27.0 - 31.0 PG) 28.3 28.6 MCHC (33.0 - 37.0 G/DL) 32.5 L 32.9 L RDW (11.5 - 14.5 %) 15.6 H 15.3 H Plt Count (130 - 400 /CUMM) 331 477 H MPV (7.4 - 10.4 FL) 9.2 7.7 Gran % (42.2 - 75.2 %) 84.3 H 84.6 H Lymphocytes % (20.5 - 51.1 %) 10.5 L 10.3 L Monocytes % (1.7 - 9.3 %) 4.3 4.3 Eosinophils % (0 - 5 %) 0.6 0.6 Basophils % (0.0 - 2.0 %) 0.3 0.2 Absolute Granulocytes (1.4 - 6.5 /CUMM) 8.5 H 10.8 H Absolute Lymphocytes (1.2 - 3.4 /CUMM) 1.1 L 1.3 Absolute Monocytes (0.10 - 0.60 /CUMM) 0.4 0.6 Absolute Eosinophils (0.0 - 0.7 /CUMM) 0.1 0.1 Absolute Basophils (0.0 - 0.2 /CUMM) 0 0 Imaging/Other Studies: 04/07/18: ECHO (COMPLETE) W/CONTRAST- CONCLUSIONS: Normal size left ventricle. Moderate concentric left ventricular hypertrophy. Mildly reduced global left ventricular systolic function. Mildly reduced left ventricular ejection fraction estimated at 50%. "pseudonormal" filling pattern of the left ventricle for age (stage 2 diastolic dysfunction). Normal right ventricular size and function. Normal atrial size. Trace mitral regurgitation. Mild aortic regurgitation. Trace tricuspid regurgitation. Unable to estimate the right ventricular systolic pressure. Trace pulmonic regurgitation. Mild aortic dilatation at the level of the sinuses of valsalva (root). Mildly dilated proximal ascending aorta (tube). -Tin Rios M.D. 05/16/18: EKG- aflutter with 4:1 block @58, RBBB (? rhythm change). 05/16/18: CT CHEST, ABDOMEN AND PELVIS WITHOUT CONTRAST (per ER)- IMPRESSION: Lack of intravenous contrast limits evaluation. Mild cardiomegaly with moderate circumferential pericardial effusion. Streaky atelectasis vs. consolidation in the left lower lobe and lingula. 3.7 cm hyperdense lesion exophytic from the lateral cortex of the right mid kidney. This could represent a solid renal mass or hyperdense cyst. There is soft tissue prominence in the left mid kidney, which could represent a mass. Recommend contrast-enhanced renal protocol CT or MRI for definitive characterization (*discussed by myself with pt & his again on 05/18/18).
--- NOTE | 2018-05-18 12:30 | PN- Cardiology ---
Subjective Subjective: The patient remained stable. No cardiac symptoms. Remains in atrial flutter/ fibrillation with controlled rate on the monitor. Issues with sleeping and anxiety noted. Objective Vital Signs and I&Os Vital Signs Date Time Temp Pulse Resp B/P B/P Pulse O2 O2 Flow FiO2 Mean Ox Delivery Rate 05/18 0946 54 150/70 05/18 0819 54 150/70 05/18 0605 97.9 59 18 148/70 97 Room Air 05/18 0000 94 Room Air 05/17 2307 98.3 52 18 154/60 94 Room Air 05/17 2049 64 174/60 05/17 1458 98.7 55 18 158/70 97 Room Air Intake & Output 05/18 1600 05/18 0805/18 0000 05/17 1600 05/17 0800 05/17 0000 Intake Total 200 400 991 773 4606 Output Total 500 Balance 200 400 607 743 6720 Intake, IV 800 1300 Intake, Oral 200 400 600 120 Number 1 1 Bowel Movements Output, Urine 500 Patient 371 lb 365 lb 367 lb Weight Weight Bed scale Measurement Method Physical Exam: General Appearance Alert, Oriented X3, Cooperative, No Acute Distress, overweight Skin bilateral vioalaceous rash on the cheeks Skin Temp/Moisture Exam: Warm/Dry Neck Supple, JVP normal, carotids normal bilaterally Cardiovascular Regular Rate, Normal S1, Normal S2, 1/6 systolic murmur Lungs Clear to Auscultation, Normal Air Movement Abdomen Normal Bowel Sounds, Soft, No Tenderness, No Hepatospenomegaly Extremities No Clubbing, No Cyanosis, pedal edema 2+, stasis change Vascular Normal Pulses, Pulses Symmetrical Current Medications: Current Medications Sig/Brittany Start time Last Medication Dose Route Stop Time Status Admin Acetaminophen 650 MG Q6P PRN 05/16 1615 AC PO Acetaminophen 1,000 MG Q6P PRN 05/16 1615 AC IV Alprazolam 0.25 MG ONE TIME PRN 05/18 0945 AC PO 05/18 2300 Amiodarone HCl 200 MG BID 05/16 2100 AC 05/17 PO 204 Lisinopril 20 MG DAILY 05/17 900 AC 05/18 PO 08 Pantoprazole Sodium 40 MG DAILY 05/16 1745 AC 05/18 IV 0819 Results Last 48 Hrs of Labs/Mics: Laboratory Tests 05/17/1859: Anion Gap 10, Estimated GFR 60, BUN/Creatinine Ratio 26.7 H, CBC w Diff NO MAN DIFF REQ, RBC 3.99 L, MCV 87.0, MCH 28.3, MCHC 32.5 L, RDW 15.6 H, MPV 9.2, Gran % 84.3 H, Lymphocytes % 10.5 L, Monocytes % 4.3, Eosinophils % 0.6, Basophils % 0.3, Absolute Granulocytes 8.5 H, Absolute Lymphocytes 1.1 L, Absolute Monocytes 0.4, Absolute Eosinophils 0.1, Absolute Basophils 0 Assessment/Plan Assessment/Plan Assessment: 1. Rectal bleeding 2. Abnormal ECG with atrial flutter of unclear duration; controlled rate 3. Known coronary disease, status post triple bypass surgery about 3 weeks ago at [facility] 4. Obesity 5. Sleep apnea 6. Mild normocytic anemia 7. Mild hyperkalemia 8. Mild AK I-resolved Recommendations: -Maintain on monitor tech -Echocardiogram pending -Continue amiodarone -Discussed with the patient, his , Herbert Olivares MD. For now, the plan is to monitor the patient today. Colonoscopy to be done tomorrow. Depending on the results of the colonoscopy, consider beginning IV heparin at that time with monitoring of patient stability over the following 24 hours before transitioning to oral anticoagulation. Continue telemetry? Yes
--- NOTE | 2018-05-18 13:53 | ECHOCARDIOGRAM REPORT ---
CARLIE HOLLOWAY Age: 72 : 1945 Gender: M Exam Date: 05/18/2018 09:52 Exam Location: [place] Ht (in): 75 Wt (lb): 367 BSA: 3.04 BP: 150 / 70 Ordering Physician: TONI HANNAH MD Referring Physician: Steve Stephens MD, PhD Technologist: Kasie Hu [facility] Room Number: 171 Indications: Afib.flutter Rhythm: Atrial fibrillation Technical Quality: good FINDINGS Left Ventricle Normal left ventricular size with mild to moderate left ventricular hypertrophy. Normal systolic function with no obvious regional wall motion abnormalities. The ejection fraction is visually estimated at 60 %. Right Ventricle The right ventricle is normal in size and function. Right Atrium The right atrium is normal in size. Left Atrium The left atrium is mildly enlarged. The interatrial septum is intact. Mitral Valve The mitral valve is normal in structure and function. There is trace mitral regurgitation. Aortic Valve Mildly thickened aortic valve without significant stenosis. There is mild aortic regurgitation. Tricuspid Valve The tricuspid valve is normal in structure and function. There is trace tricuspid regurgitation. Pulmonary artery systolic pressure is normal. Pulmonic Valve Structurally normal pulmonic valve. There is mild pulmonic regurgitation. Pericardium Normal pericardium without effusion. No pleural effusion. Great Vessels Normal aortic root dimension. The aortic arch and great vessels are well seen and are normal. CONCLUSIONS 1. Normal EF of 60%. 2. Mild to moderate left ventricular hypertrophy. 3. Mild left atrial enlargement. 4. Trace mitral regurgitation. 5. Trace tricuspid regurgitation. 6. Mild aortic regurgitation. 7. Mild pulmonic regurgitation. Steve Stephens M.D. (Electronically Signed) Final Date: 18 May 2018 13:52 MEASUREMENTS (Male / Female) Normal Values 2D ECHO LV Diastolic Diameter PLAX 4.7 cm 4.2 - 5.9 / 3.9 - 5.3 cm LV Systolic Diameter PLAX 3.0 cm 2.1 - 4.0 cm LV Fractional Shortening PLAX 36.2 % 25 - 46 % LV Ejection Fraction 2D Teich 65.8 % IVS Diastolic Thickness 1.7 cm LVPW Diastolic Thickness 1.7 cm LV Relative Wall Thickness 0.7 RV Internal Dim ED PLAX 2.7 cm 1.9 - 3.8 cm LVOT Diameter 2.5 cm Aortic Root Diameter 3.8 cm LA Systolic Diameter LX 4.4 cm 3.0 - 4.0 / 2.7 - 3.8 cm Ascending Aorta Diameter 3.8 cm DOPPLER AV Peak Velocity 218.0 cm/s AV Peak Gradient 19.0 mmHg AV Mean Velocity 141.0 cm/s AV Mean Gradient 9.0 mmHg AV Velocity Time Integral 48.0 cm LVOT Peak Velocity 102.0 cm/s LVOT Peak Gradient 4.2 mmHg LVOT Mean Velocity 64.9 cm/s LVOT Mean Gradient 2.0 mmHg LVOT Velocity Time Integral 17.3 cm LVOT Stroke Volume 84.9 cm AV Area Cont Eq vti 1.8 cm AV Area Cont Eq pk 2.3 cm MV Peak Velocity 221.0 cm/s MV Peak Gradient 19.5 mmHg MV Mean Velocity 77.1 cm/s MV Mean Gradient 4.0 mmHg Mitral E Point Velocity 76.5 cm/s MV PHT Velocity 225.0 cm/s MV Deceleration [facility] 1226.0 cm/s MV Pressure Half Time 55.1 ms MV Area PHT 4.0 cm MV Deceleration Time 230.0 ms TR Peak Velocity 316.0 cm/s TR Peak Gradient 39.9 mmHg Right Atrial Pressure 5.0 mmHg Pulmonary Artery Systolic Pressure 44.9 mmHg Right Ventricular Systolic Pressure 44.9 mmHg PV Peak Velocity 113.0 cm/s PV Peak Gradient 5.1 mmHg PV Mean Velocity 69.3 cm/s PV Mean Gradient 2.0 mmHg PV Velocity Time Integral 20.0 cm LV E' Lateral Velocity 8.6 cm/s Mitral E to LV E' Lateral Ratio 8.9 LV E' Septal Velocity 7.8 cm/s Mitral E to LV E' Septal Ratio 9.8
[2018-05-18 14:30] VITALS: BP 144/62
[2018-05-18 14:34] LABS: ABSOLUTE BASOPHIL COUNT 0 /CUMM (0.0-0.2); ABSOLUTE EOSINOPHIL COUNT 0.1 /CUMM (0.0-0.7); ABSOLUTE GRANULOCYTE CT 7.8 /CUMM (1.4-6.5); ABSOLUTE LYMPH COUNT 1.1 /CUMM (1.2-3.4); ABSOLUTE MONOCYTE COUNT 0.7 /CUMM (0.10-0.60); BASOPHIL % 0.3 % (0.0-2.0); EOSINOPHIL % 0.6 % (0-5); GRANULOCYTE % 80.2 % (42.2-75.2); HEMATOCRIT 33.1 % (42-52); MEAN CORPUSCULAR HGB 28.4 PG (27.0-31.0); MEAN CORPUSCULAR HGB CONC 32.7 G/DL (33.0-37.0); MEAN PLATELET VOLUME 8.1 FL (7.4-10.4); PLATELET COUNT 417 /CUMM (130-400); RBC DISTRIBUTION WIDTH 15.6 % (11.5-14.5); RED BLOOD CELL CT 3.81 /CUMM (4.70-6.10); WHITE BLOOD CELL COUNT 9.7 /CUMM (4.8-10.8)
[2018-05-18 20:47] VITALS: BP 176/80
[2018-05-19 06:23] VITALS: BP 154/60
[2018-05-19 07:49] LABS: ABSOLUTE BASOPHIL COUNT 0.1 /CUMM (0.0-0.2); ABSOLUTE EOSINOPHIL COUNT 0.1 /CUMM (0.0-0.7); ABSOLUTE GRANULOCYTE CT 6.6 /CUMM (1.4-6.5); ABSOLUTE LYMPH COUNT 1.1 /CUMM (1.2-3.4); ABSOLUTE MONOCYTE COUNT 0.6 /CUMM (0.10-0.60); BASOPHIL % 0.7 % (0.0-2.0); EOSINOPHIL % 1.1 % (0-5); GRANULOCYTE % 77.7 % (42.2-75.2); HEMATOCRIT 33.8 % (42-52); MEAN CORPUSCULAR HGB 28.6 PG (27.0-31.0); MEAN CORPUSCULAR HGB CONC 32.8 G/DL (33.0-37.0); MEAN CORPUSCULAR VOLUME 87.2 FL (80.0-94.0); MEAN PLATELET VOLUME 8.8 FL (7.4-10.4); PLATELET COUNT 354 /CUMM (130-400); RBC DISTRIBUTION WIDTH 15.5 % (11.5-14.5); RED BLOOD CELL CT 3.88 /CUMM (4.70-6.10); WHITE BLOOD CELL COUNT 8.5 /CUMM (4.8-10.8)
--- NOTE | 2018-05-19 08:19 | PN- Gastroenterology ---
Assessment/Plan GI Assessment/Recommendations: 72 y/o male, HTN, HLD, gout, morbid obesity, recently admitted to [facility] 04/06/18 - 04/10/18, with CP, progressive SOB, unstable angina, junctional bradycardia, Wenkebach (2nd degree AVB, Mobitz I), RBBB. Lyme titers were negative. There was a question as to whether the patient might need PPM. Echo showed mildly reduced LVEF at 50%, & nuclear study showed diminished apical perfusion. He subsequently had cardiac catheterization, showing triple-vessel disease, and had CABG 3 at [facility] approximately 2 weeks ago. He was on ECASA 81 mg daily. He was not on any additional anti-PLT agents, Plavix, A/C tx or NSAIDS. The patient stated the morning of 05/16/18, he had a small, brown BM, followed by BRBPR with clots in the toilet water. This was painless in nature. This was followed a few hours later by scant brown stool, but predominantly spontaneous rectal bleeding, of a smaller magnitude than the initial event. There was no melena, hematemesis, abdominal pain, rectal pain, CP, SOB, LOC, or palpitations. There was no rectal trauma. The patient denied any history of hemorrhoids. There was no FHx GI Ca, IBD, GI disease, or inherited liver disease. He claimed he had a baseline colonoscopy in [place], [place] 5 years ago (unsure as to by whom), done for a similar episode of rectal bleeding, & stated "there were no polyps, just blood pockets". When I asked him if the term diverticular bleed was used then, he was unsure. He had never been transfused, & claimed he did not become anemic after the CABG. he had mild diarrhea after the CABG, which resolved. His bowel habits were now otherwise normal, aside from the above bleeding. There was no constipation, obstipation, tenesmus, or change in stool caliber. He denied any GERD, odynophagia, dysphagia, nausea, vomiting, or early satiety. The patient has a history of panic attacks, which persisted off his Pravastatin. He has severe pedal edema, despite using compression stockings, & DJD. He denied any history of bleeding disorders or gross hematuria. He denied any hx AAA. Remote lap CCKY. No cigs or EtOH. Upon arrival to the [place] ER, 05/16/18 at 11:57 a.m., 156/67, P 60,R 17, T 99, O2 sat RA 98%. He was admitted to general medicine. I was not notified by the ER & was later contacted by the medical housestaff that p.m. There has been no recurrent bleeding since. There was no documented hypotension. 04/06/18: nl LFTs, with alb 3.5, glob 3.1, TChol 147, TG 192, HDL 26, LDL 83, TSHR 4.00, HgbA1C 5.9, troponin < 0.01, BNP 363. 04/09/18: WBC 7.5, H/H 13.1/40.1, MCV 84.4, RDW 15.6, PLT 191 04/10/18: BUN/Cr 30/1.2, nl lytes. 05/16/18: WBC 12.7 (85% gran/11 gran Ab), H/H 11.1/33.8, MCV 87, RDW 15.3, PLT 477, PT 15.0, INR 1.37, PTT 29, glucose 81, BUN/Cr 33/1.3, GFR 54, Na 138, K 5.2. HCO3 30,AG 6, Ca 8.6, alb 3.1, glob 3.3, TBil 0.2, alk phos 79, AST 23, ALT 37, troponin 0.02. 05/16/18: EKG- *aflutter with 4:1 block @58, RBBB (? rhythm change). 05/16/18: CT CHEST, ABDOMEN AND PELVIS WITHOUT CONTRAST- IMPRESSION: Lack of intravenous contrast limits evaluation. Mild cardiomegaly with moderate circumferential pericardial effusion. Streaky atelectasis vs. consolidation in the left lower lobe and lingula. 3.7 cm hyperdense lesion exophytic from the lateral cortex of the right mid kidney. This could represent a solid renal mass or hyperdense cyst. There is soft tissue prominence in the left mid kidney, which could represent a mass. Recommend contrast-enhanced renal protocol CT or MRI for definitive characterization. Clinically, the patient most likely had a self-limited diverticular bleed > AVM. This sounded similar to the time he had his baseline and only colonoscopy in [place], [place] 5 years ago, where no polyps were found. Another option could be a hemorrhoidal bleed, doubt lesion or colitis. There was no pain to suggest a fissure. The patient's Hgb had gone from 13.1 to 11.1 in the past 5 weeks. Clinically, this was not a rapid transit UGIB. His admission BUN was relatively stable, with mild CKD. *I had a discussion with Dr. Stephens, regarding the issue of holding ECASA 81mg daiy 2 weeks post CABG. He told me he would be okay with this for 1 week. If needed, as the patient was revascularized post CABG, he told him that the patient would be cleared from a cardiac perspective for potential colonoscopy. Having stated that, as his sternal wound was still healing, unless the patient continued to have significant bleeding, I am leaning towards a conservative approach, with possible outpt colonoscopy. *The other issue is the ? new onset aflutter & if this persists, could require A/C tx, potentially warranting colonoscopy sooner rather than later. Cardiology consult was advised. 05/17/18: 0859-WBC 10.1, H/H 11.3/34.8, MCV 87, RDW 15.6, PLT 331, BUN/Cr 32/1.2 , GFR 60 (baseline), Na 139, K 5.3, HCO3 21, AG 10. *Dr. Brown's GI consult of 05/17/18 was reviewed and the case was discussed with him in detail. The patient was transferred to telemetry later that day for A. fib/flutter. 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 Cardiology is okay with holding Ecotrin for now. The patient clinically stopped bleeding. In fact, he tolerated solids po for dinner & had a brown OB-neg BM the morning of 05/18/18. His H/H remained relatively stable. His mildly decreased GFR had normalized (regarding potential for CTA, if active rebleed).*The major issue at the moment is whether the patient can be anticoagulated for his A. fib/flutter. Additionally, if he were to be cardioverted, it would require A/C therapy for at least 1 month afterwards, forcing the hand of performing colonoscopy sooner rather than later. *As of 05/18/18, patient was asymptomatic, except for anxiety and panic attacks. He remained in A. fib/flutter with HR 50's (on Amiodarone). He was mildly HTN ( 150/70) & afebrile, with O2 sat RA 97%. He denied any CP, SOB, palpitations, abdominal pain, nausea, vomiting, hematemesis, melena, or recurrent rectal bleeding. He had no neurologic symptoms. He was switched to clears po in anticipation of a bowel prep later today, based on the need to clear his colon prior to A/C therapy. *Labs had not yet been drawn 05/18/18, due to poor access. (He had a peripheral line in his right foot & if he actively rebled, would need a central line). *The risks & benefits of colonoscopy were discussed with the patient in great detail in the presence of his , Lenora,and informed consent was obtained from him, 05/18/18. 05/18/18: *ECHOCARDIOGRAM- CONCLUSIONS 1. Normal EF of 60%. 2. Mild to moderate left ventricular hypertrophy. 3. Mild left atrial enlargement. 4. Trace mitral regurgitation. 5. Trace tricuspid regurgitation. 6. Mild aortic regurgitation. 7. Mild pulmonic regurgitation. -Steve Stephens M.D. 05/18/18: 1345- WBC 9.7, H/H 10.8/33.1, PLT 417, BUN/Cr 29/1.2, GFR 60, Na 136, K 4.7, HCO3 24, AG 8, nl TFTs (*on Amiodarone; 05/16/18: mild elev TSH 6.91). 05/19/18: 0653- WBC 8.5, H/H 11.1/33.8, PLT 354 *As of 05/19/18, the patient remained asymptomatic (aside from mild anxiety & sleep issues/SAURABH), in afib/flutter (CM- 53, on Amiodarone), mildly HTN 154/60, R 18, afebrile, with O2 sat RA 97%. *Echocardiogram was repeated 05/18/18 (*see above)- nl LVEF 60%, with mild valvulopathy, but no obvious regional wall motion abnormalities. His rhythm was afib during the echocardiogram. *He was cleared by cardiology for colonoscopy to clear his colon, prior to committing him to A/C therapy. He took 3/4 of the gallon of GoLytely, with clear effluent. He denied any gross recurrent rectal bleeding. There was no CP, SOB, abdominal pain, melena, hematemesis, or any UGI sx whatsoever. He denied any neurologic sx. His H/H had not changed substantially since admission. He tolerated clears po yesterday, & was currently NPO, awaiting colonoscopy, the logistics of which (i.e.- transfer to ICU for procedure), will be facilitated by the nursing painter supervisor, Irlanda, whom I contacted. I also spoke with Dr. John, of anesthesia. *The IV line was removed from his right foot yesterday preop, & he now had 2 adequate large bore peripheral IVs (one in each arm). 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 SUGGEST- Maintain NPO for colonoscopy later this a.m., on Sat05/19/18 (to be transferred to ICU for the procedure), to be coordinated by the RN painter supervisor, anesthesia, & the GI RNs relationship mgr (*personally d/w them). T&C 4u PRBC. Check CBC QD for now. *Keep Hgb > 8 (+ ASHD). O2 prn. 2 large bore IVs. If possible, try to get copies of the patient's previous baseline & only colonoscopy done in [place], [place] 2012 (? name of ), duke apparently was done for what sounded like a diverticular bleed then. *If the patient develops active bleeding, call GI YOLI & move patient to ICU, with consideration for CTA abdomen, as GFR allows (GFR now normal). Ecotrin 81 mg daily on hold for now x 1 week. *Assuming the colonoscopy is stable (probable resolved diverticular bleed > AVM), would carefully start A/C tx postop, for A. fib/flutter. *If no active bleeding seen, will advance diet. *If no significant mucosal abnormalities seen, as there is no FHx colon Ca, nor any prior hx colon polyps, probably no need for follow-up surveillance colonoscopy in 10 years, as the patient will be of borderline advanced age then, and has innumerable comorbidities. *If the patient rebleeds of any significance after rx A/C therapy , will need further GI workup, but the above appeared to be LGI in nature. * Additionally, follow-up with medical team for further workup of ? SAURABH & B/L renal masses vs. cysts seen on non-contrast CT, per [facility]. *The case was previously discussed with Dr. Brown & with the medical housestaff. *The above numerous issues were again discussed with the patient & his , Lenora, at the bedside in great detail, on 05/19/18. The patient's was also given my office number for future reference. Further GI recommendations to follow, depending on clinical course. Problem List: 1. Rectal bleed 2. Normocytic anemia 3. ASHD (arteriosclerotic heart disease) 4. S/P CABG x 3 5. Morbid obesity 6. Atrial flutter Subjective Subjective: 05/18/18: *ECHOCARDIOGRAM- CONCLUSIONS 1. Normal EF of 60%. 2. Mild to moderate left ventricular hypertrophy. 3. Mild left atrial enlargement. 4. Trace mitral regurgitation. 5. Trace tricuspid regurgitation. 6. Mild aortic regurgitation. 7. Mild pulmonic regurgitation. -Steve Stephens M.D. 05/18/18: 1345- WBC 9.7, H/H 10.8/33.1, PLT 417, BUN/Cr 29/1.2, GFR 60, Na 136, K 4.7, HCO3 24, AG 8, nl TFTs (*on Amiodarone; 05/16/18: mild elev TSH 6.91). 05/19/18: 0653- WBC 8.5, H/H 11.1/33.8, PLT 354 *As of 05/19/18, the patient remained asymptomatic (aside from mild anxiety & sleep issues/SAURABH), in afib/flutter (CM- 53, on Amiodarone), mildly HTN 154/60, R 18, afebrile, with O2 sat RA 97%. *Echocardiogram was repeated 05/18/18 (*see above)- nl LVEF 60%, with mild valvulopathy, but no obvious regional wall motion abnormalities. His rhythm was afib during the echocardiogram. *He was cleared by cardiology for colonoscopy to clear his colon, prior to committing him to A/C therapy. He took 3/4 of the gallon of GoLytely, with clear effluent. He denied any gross recurrent rectal bleeding. There was no CP, SOB, abdominal pain, melena, hematemesis, or any UGI sx whatsoever. He denied any neurologic sx. His H/H had not changed substantially since admission. He tolerated clears po yesterday, & was currently NPO, awaiting colonoscopy, the logistics of which (i.e.- transfer to ICU for procedure), will be facilitated by the nursing painter supervisor, Irlanda, whom I contacted. I also spoke with Dr. John, of anesthesia. *The IV line was removed from his right foot yesterday preop, & he now had 2 adequate large bore peripheral IVs (one in each arm). Review of Systems: Full 14 point ROS otherwise noncontributory, and as above. Constitutional: Denies: chills, diaphoresis, fever, malaise, weakness, unexplained weight loss. Cardiovascular: Reports: peripheral edema. Denies: chest pain, orthopena, palpitations, syncope. Respiratory: Reports: ? SAURABH with sleep issues (morbidly obese) Denies: SOB, cough, hemoptysis, orthopnea, sputum production, stridor, wheezing. GI: Reports: rectal bleeding & clots-> resolved Denies: abdominal pain, bloating, constipation, distention, vomiting. Genitourinary: Reports: hesitation. Musculoskeletal: Reports: joint pain, joint swelling. Skin: Denies: change in skin color, change in hair/nails, dryness. Neurological/Psychological: Reports: anxiety & panic attacks. Denies: depressed, numbness. Hematologic/Endocrine: Denies: polyuria, polydipsia. Objective Vital Signs and I&Os Vital Signs Date Time Temp Pulse Resp B/P B/P Pulse O2 O2 Flow FiO2 Mean Ox Delivery Rate 05/19 0824 53 154/60 05/19 0623 97.7 53 18 154/60 97 Room Air 05/18 2137 58 05/18 2047 98.0 56 18 176/80 96 05/18 2026 Room Air 05/18 1430 97.8 59 18 144/62 96 Room Air 05/18 0946 54 150/70 Intake & Output 05/19 040 Intake Total 1999 3084 829 9785 1420 Output Total 500 Balance 1999 1030 359 301 7668 Intake, IV 30 800 1300 Intake, Oral 1999 1000 400 600 120 Number 3 2 1 Bowel Movements Output, Urine 500 Patient 373 lb 371 lb 365 lb 367 lb Weight Weight Bed scale Measurement Method Physical Exam: Well-developed, well-nourished, morbidly obese male, in no apparent distress. Sclera anicteric. Conjunctiva pink. Oropharynx clear. No oral thrush. No aphthous ulcers. There is no adenopathy, thyromegaly, or JVD. No peripheral stigmata of inflammatory bowel disease or chronic liver disease on exam. No spiders on the anterior chest wall. No gynecomastia, aside from obesity. No CVA tenderness. Lungs: clear to A&P, wih slight decreased BS at the bases B/L. Healing midline CABG scar in sternum, with alexy. No flail chest. Heart exam: regular rate rhythm (aflutter on monitor), S1 and S2, with I/ systolic murmur. Abdominal exam: normal bowel sounds, soft obese belly, nontender, without guarding or rebound. Reducible ? RIH. Otherwise, no definite mass or organomegaly, within the limits of the body habitus. No fluid shift. No pulsatile mass. No epigastric bruit. Repeat digital rectal exam: deferred by pt , as done in [place] ER on admission, reportedly with small amount BRB then (had brown, OB-neg stool post BM 05/18/18). Extremities: without cyanosis or clubbing. > 2+ peripheral edema, with chronic stasis dermatitis changes. No palpable cords. *Now with 2 adequate peripheral IV sites preop (one in each arm) . DJD. No palmar erythema. No Dupuytren's contractures. Distal pulses 2+ bilaterally. DTRs 2+ bilaterally. Right handed. Motor 5/5 B/L. Alert and oriented x 3. No tremor. No asterixis. Current Medications: Current Medications Sig/Brittany Start time Last Medication Dose Route Stop Time Status Admin Acetaminophen 650 MG Q6P PRN 05/16 1615 AC PO Acetaminophen 1,000 MG Q6P PRN 05/16 1615 AC IV Alprazolam 0.25 MG ONE TIME PRN 05/18 0945 DC 05/18 PO 05/18 2300 2137 Amiodarone HCl 200 MG BID 05/16 2100 AC 05/17 PO 2049 Lisinopril 20 MG DAILY 05/17 0900 AC 05/19 PO 0824 Pantoprazole Sodium 40 MG DAILY 05/16 1745 AC 05/19 IV 0820 Polyethylene Glycol 1 GAL ONCE ONE 05/18 1400 DC PO 05/18 1401 Results Pertinent Lab Results: Laboratory Tests 05/19 05/18 0653 1345 Chemistry Sodium (137 - 145 mmol/L) 136 L Potassium (3.5 - 5.1 mmol/L) 4.7 Chloride (98 - 107 mmol/L) 104 Carbon Dioxide (22 - 30 mmol/L) 24 Anion Gap (5 - 16) 8 BUN (9 - 20 mg/dL) 29 H Creatinine (0.7 - 1.2 mg/dL) 1.2 Estimated GFR (>60 ml/min) 60 BUN/Creatinine Ratio (7 - 25 %) 24.2 Free T4 (0.78 - 2.44 ng/dL) 1.41 Free T3 (2.45 - 5.93 pg/mL) 2.6 Hematology CBC w Diff NO MAN DIFF REQ NO MAN DIFF REQ WBC (4.8 - 10.8 /CUMM) 8.5 9.7 RBC (4.70 - 6.10 /CUMM) 3.88 L 3.81 L Hgb (14.0 - 18.0 G/DL) 11.1 L 10.8 L Hct (42 - 52 %) 33.8 L 33.1 L MCV (80.0 - 94.0 FL) 87.2 87.0 MCH (27.0 - 31.0 PG) 28.6 28.4 MCHC (33.0 - 37.0 G/DL) 32.8 L 32.7 L RDW (11.5 - 14.5 %) 15.5 H 15.6 H Plt Count (130 - 400 /CUMM) 354 417 H MPV (7.4 - 10.4 FL) 8.8 8.1 Gran % (42.2 - 75.2 %) 77.7 H 80.2 H Lymphocytes % (20.5 - 51.1 %) 13.3 L 11.7 L Monocytes % (1.7 - 9.3 %) 7.2 7.2 Eosinophils % (0 - 5 %) 1.1 0.6 Basophils % (0.0 - 2.0 %) 0.7 0.3 Absolute Granulocytes (1.4 - 6.5 /CUMM) 6.6 H 7.8 H Absolute Lymphocytes (1.2 - 3.4 /CUMM) 1.1 L 1.1 L Absolute Monocytes (0.10 - 0.60 /CUMM) 0.6 0.7 H Absolute Eosinophils (0.0 - 0.7 /CUMM) 0.1 0.1 Absolute Basophils (0.0 - 0.2 /CUMM) 0.1 0 05/17 05/16 0859 1226 Chemistry Sodium (137 - 145 mmol/L) 139 138 Potassium (3.5 - 5.1 mmol/L) 5.3 H 5.2 H Chloride (98 - 107 mmol/L) 108 H 103 Carbon Dioxide (22 - 30 mmol/L) 21 L 30 Anion Gap (5 - 16) 10 6 BUN (9 - 20 mg/dL) 32 H 33 H Creatinine (0.7 - 1.2 mg/dL) 1.2 1.3 H Estimated GFR (>60 ml/min) 60 54 L BUN/Creatinine Ratio (7 - 25 %) 26.7 H 25.4 H Glucose (65 - 99 mg/dL) 81 Calcium (8.4 - 10.2 mg/dL) 8.6 Magnesium (1.6 - 2.3 mg/dL) 2.2 Total Bilirubin (0.2 - 1.3 mg/dL) 0.2 AST (17 - 59 U/L) 23 ALT (21 - 72 U/L) 37 Alkaline Phosphatase (< 127 U/L) 79 Troponin I (<0.11 ng/ml) 0.02 Total Protein (6.3 - 8.2 g/dL) 6.4 Albumin (3.5 - 5.0 g/dL) 3.1 L Globulin (1.9 - 4.2 gm/dL) 3.3 Albumin/Globulin Ratio (1.1 - 2.2 %) 0.9 L TSH (0.270 - 4.200 uIU/mL) 6.910 H Coagulation PT (9.4 - 12.5 SEC) 15.0 H INR (0.90 - 1.17) 1.37 H APTT (25 - 37 SEC) 29 Hematology CBC w Diff NO MAN DIFF REQ NO MAN DIFF REQ WBC (4.8 - 10.8 /CUMM) 10.1 12.7 H RBC (4.70 - 6.10 /CUMM) 3.99 L 3.89 L Hgb (14.0 - 18.0 G/DL) 11.3 L 11.1 L Hct (42 - 52 %) 34.8 L 33.8 L MCV (80.0 - 94.0 FL) 87.0 87.0 MCH (27.0 - 31.0 PG) 28.3 28.6 MCHC (33.0 - 37.0 G/DL) 32.5 L 32.9 L RDW (11.5 - 14.5 %) 15.6 H 15.3 H Plt Count (130 - 400 /CUMM) 331 477 H MPV (7.4 - 10.4 FL) 9.2 7.7 Gran % (42.2 - 75.2 %) 84.3 H 84.6 H Lymphocytes % (20.5 - 51.1 %) 10.5 L 10.3 L Monocytes % (1.7 - 9.3 %) 4.3 4.3 Eosinophils % (0 - 5 %) 0.6 0.6 Basophils % (0.0 - 2.0 %) 0.3 0.2 Absolute Granulocytes (1.4 - 6.5 /CUMM) 8.5 H 10.8 H Absolute Lymphocytes (1.2 - 3.4 /CUMM) 1.1 L 1.3 Absolute Monocytes (0.10 - 0.60 /CUMM) 0.4 0.6 Absolute Eosinophils (0.0 - 0.7 /CUMM) 0.1 0.1 Absolute Basophils (0.0 - 0.2 /CUMM) 0 0 Imaging/Other Studies: 04/07/18: ECHO (COMPLETE) W/CONTRAST- CONCLUSIONS: Normal size left ventricle. Moderate concentric left ventricular hypertrophy. Mildly reduced global left ventricular systolic function. Mildly reduced left ventricular ejection fraction estimated at 50%. "pseudonormal" filling pattern of the left ventricle for age (stage 2 diastolic dysfunction). Normal right ventricular size and function. Normal atrial size. Trace mitral regurgitation. Mild aortic regurgitation. Trace tricuspid regurgitation. Unable to estimate the right ventricular systolic pressure. Trace pulmonic regurgitation. Mild aortic dilatation at the level of the sinuses of valsalva (root). Mildly dilated proximal ascending aorta (tube). -Tin Rios M.D. 05/16/18: EKG- aflutter with 4:1 block @58, RBBB (? rhythm change). 05/16/18: CT CHEST, ABDOMEN AND PELVIS WITHOUT CONTRAST (per ER)- IMPRESSION: Lack of intravenous contrast limits evaluation. Mild cardiomegaly with moderate circumferential pericardial effusion. Streaky atelectasis vs. consolidation in the left lower lobe and lingula. 3.7 cm hyperdense lesion exophytic from the lateral cortex of the right mid kidney. This could represent a solid renal mass or hyperdense cyst. There is soft tissue prominence in the left mid kidney, which could represent a mass. Recommend contrast-enhanced renal protocol CT or MRI for definitive characterization (*discussed by myself with pt & his again on 05/18/18). 05/18/18: *ECHOCARDIOGRAM- CONCLUSIONS 1. Normal EF of 60%. 2. Mild to moderate left ventricular hypertrophy. 3. Mild left atrial enlargement. 4. Trace mitral regurgitation. 5. Trace tricuspid regurgitation. 6. Mild aortic regurgitation. 7. Mild pulmonic regurgitation. -Steve Stephens M.D.
--- NOTE | 2018-05-19 09:34 | Proc Note Colonoscopy ---
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 Yes Date of Last Colonoscopy: ? 2012- Baseline & only colonoscopy in [place], [place] at time of ? divertic bleed - "no polyps". Procedure Date: 05/19/18 Procedure Type: colonoscopy Rehabilitation Case Coordinator: ANAI CONCEPCION MD ASA Classification: IV (IV-E) Indications: INDX: (*Please refer to my 05/17/18: inpt GI consult). 72 y/o male, HTN, HLD, gout, morbid obesity, ? SAURABH, recently admitted to [facility] 04/06/18 - 04/10/18, with CP, progressive SOB, unstable angina, junctional bradycardia, Wenkebach (2nd degree AVB, Mobitz I), RBBB. Lyme titers were negative. 04/07/18 : Echo- mildly reduced LVEF at 50%, & nuclear study showed diminished apical perfusion. He subsequently had cardiac catheterization, showing triple-vessel disease, and had CABG 3 at [facility] approximately 2 & 1/2 weeks ago. He denied any knowledge of anemia, post CABG. *The patient was readmitted to [facility] 05/16/18, with painless BRBPR and clots x2, no recurrence of bleeding since admission. GI ROS otherwise- neg. He had mild normocytic anemia, as his Hgb dropped by 2 points compared to 5 weeks prior. He did not require transfusion. There was no hypotension. He had mild TIANA, which resolved. Troponin negative. *The new issue was new onset A. fib/flutter on admission, which will probably require A/C tx. Cardiology is requesting that the patient's colonoscopy be cleared, prior to committing him to A/C therapy & possible cardioversion. The patient denied any history of hemorrhoids. There was no FHx GI Ca, IBD, GI disease, or inherited liver disease. *Baseline & only colonoscopy in [place], [place], approximately 2012 (unsure as to by whom), done for a similar episode of rectal bleeding- "no polyps, just blood pockets". When I asked him if the term diverticular bleed was used then, he was unsure. Records not available. Instrument (Colonoscope): single channel Meds Received: MAC Patient's Tolerance: good Complications: none Extent Reached: terminal ileum Prep: good Procedure: Follow-up colonoscopy to the terminal ileum, was performed with the Olympus high -definition video colonoscope, after obtaining informed consent from the patient , with the electronic device monitor and pulse oximeter, after 3/4 gallon of GoLytely (per patient), with the assistance of Dr. Jackson, of [facility], & the GI verification specialist RNs, Sue & Riana. The patient had been moved from room 171 ( telemetry) to the [facility] ICU, room #111, for the procedure, in order to safely sedate him. The prep was good. A small amount of residual bilious effluent in the proximal colon was washed and suctioned clear, with the use of Mylicon. I was able to adequately visualize the entire colonic mucosa to the terminal ileum. The patient was in the left lateral decubitus position throughout the procedure. Direct views of the rectum failed to reveal any external hemorrhoids , fissures, or perianal disease. Digital rectal exam was unremarkable, without any masses. The prostate was smooth, without any nodules. Sphincter tone was normal. Retroflexion in the rectum failed to reveal any internal hemorrhoids, gross proctitis, rectal ulcers, or rectal lesions. The colonic mucosa was carefully inspected, both upon insertion and upon withdrawal of the colonoscope. Withdrawal time was certainly adequate. The colonic mucosa was carefully inspected, both upon insertion and upon withdrawal of the colonoscope. There were fairly extensive left-sided diverticula, from the sigmoid to the distal transverse colon. There were no strictures. I did not appreciate any proximal diverticula. The cecum, base of the appendix, and ileocecal valve were all identified. The last 10 cm of the terminal ileum were entered, and appeared normal. Confirmatory photographs were obtained & placed inside the patient's chart. The colonic mucosa appeared intact and within normal limits to the terminal ileum, without any polyps, lesions, gross colitis, ileitis, or angiodysplasias. No active lower GI bleeding was seen. In fact, not a speck of blood was seen in the colon or the TI. The patient tolerated the procedure well. *Clinically, he most probably had a self-limited diverticular bleed. Impression: 1. Fairly extensive left-sided diverticula, from the sigmoid to the distal transverse colon. 2. Normal colonic mucosa to the last 10 cm of the terminal ileum. No active lower GI bleeding seen (not a speck of blood was seen). *Statistically, most likely, the patient probably had a self-limited diverticular bleed, which resolved. Recommendations: *Clears po, then may advance fairly rapidly to a high fber, 2g Na+, low fat, heart healthy diet, supplemented with Fibercon 2 tabs daily. *Once the patient is done recuperating in the ICU postop, he may be transferred back to telemetry. T&C 4u PRBC. Check CBC QD for now. *Keep Hgb > 8 (+ ASHD). O2 prn. 2 large bore IVs. If possible, try to get copies of the patient's previous baseline & only colonoscopy done in [place], [place] 2012 (? name of MD), which apparently was done for what sounded like a diverticular bleed then. *Okay from GI perspective to carefully start A/C tx today for afib/flutter (? initially with trial of IV heparin), per d/w cardiology, in anticipation of eventual cardioversion. *This would necessitate continuing A/C tx for at least 1 month post cardioversion, even if pt reverts to NSR afterwards. If the patient develops active bleeding , call GI YOLI & move patient back to ICU, with consideration for CTA abdomen, as GFR allows (GFR now normal). Ecotrin 81 mg daily post CABG on hold for now x 1 week, per d/w cardiology. *If the patient rebleeds of any significance after rx A/C therapy, will need further GI workup, but the above appeared to be LGI in nature, & was probably a resolved self-limited diverticular bleed. *As no significant mucosal abnormalities seen, as there is no FHx colon Ca, nor any prior hx colon polyps, no need for follow-up surveillance colonoscopy in 10 years, as the patient will be of borderline advanced age then (82 y/o), and has innumerable comorbidities. *Additionally, follow-up with medical team for further workup of ? SAURABH & B/L renal masses vs. cysts seen on non-contrast CT, per Tl ER. *The case was again discussed with Dr. Brown postop & previously with the medical housestaff. *The above numerous issues were again discussed with the patient & his , Lenora, in great detail, postop in the ICU, on 05/19/18. The patient' s was previously given my office number for future reference, if needed. * *Please call if the patient actively rebleeds on A/C therapy. Otherwise, further inpt and/or outpt GI follow-up will be on an as needed basis. Followup Colonscopy Screen In: no need for routine surveillance in 10 yrs, based on age & other med issues CC: Eugenia LAZO,Boris; Otis LAZO,Benjy BYovani; Yusef Hirsch APRN; Kevin LAZO,Love Helm; Angelo LAZO PHD,Steve Latasha
--- NOTE | 2018-05-19 11:19 | PN- Housestaff ---
[facility]: Subjective Follow-up For: Bleeding per rectum, possible diverticular status post colonoscopy. Tele-Events Since Last Visit: No overnight events. Heart rate remained between 40s and 50s Subjective: No overnight events. Patient remained afebrile. Seen and examined this morning. His amiodarone was discontinued last night as his heart rate was in 30s and 40s although patient was asymptomatic. Patient was seen after he was done with his colonoscopy. Patient denied chest pain, nausea, vomiting, abdominal pain, bleeding per rectum, palpitation and dysuria. He will be started on clear liquid diet today and we will advance as tolerated. Review of Systems Constitutional: Denies: chills, fever. EENTM: Reports: no symptoms. Cardiovascular: Denies: chest pain, palpitations. Respiratory: Denies: cough, short of breath, sputum production. Gastrointestinal: Denies: abdominal pain, diarrhea, nausea, vomiting. Genitourinary: Reports: no symptoms. Neurological/Psychological: Reports: no symptoms. Objective Last 24 Hrs of Vital Signs/I&O Vital Signs Date Time Temp Pulse Resp B/P B/P Pulse O2 O2 Flow FiO2 Mean Ox Delivery Rate 05/19 1111 48 103/55 05/19 0824 53 154/60 / 0623 97.7 53 18 154/60 97 Room Air 05/18 2137 58 / 204 98.0 56 18 176/80 96 / 2026 Room Air 05/18 1430 97.8 59 18 144/62 96 Room Air Intake & Output 05/19 1600 05/19 0800 05/19 0000 Intake Total 2000 Output Total Balance 2000 Intake, Oral 2000 Number 3 Bowel Movements Patient 373 lb Weight Physical Exam General Appearance: Alert, Oriented X3, Cooperative Skin Temp/Moisture Exam: Warm/Dry Sepsis Skin Exam (color): Normal for Ethnicity HEENT: Atraumatic, PERRLA, EOMI Neck: Supple Cardiovascular: Normal S1, Normal S2 Lungs: Clear to Auscultation Abdomen: Soft, No Tenderness Neurological: Normal Speech, Strength at 5/5 X4 Ext, Normal Tone Extremities: b/l pedal edema Assessment/Plan Assessment: 72 YO M with PMH of hypertension, hyperlipidemia, CAD s/p triple CABG about 2 weeks ago is admitted to the [facility] service with cheif complaint of 2 episodes of painless bright red bleeding per rectum. He denies constipation or a history of hemorrhoids. He had a similar but more severe episode of bleeding about 5 years ago. A colonoscopy done at that time was apparently unrevelaing for the patient. The patient denies the use of blood thinners except Aspirin. He did haev severe diarrhea during the post op period which resolved on it own 2 days ago. He endorses getting up short of breath in the middle of the night. His symptoms are relieved sitting after sitting in the recliner. Following the patient on telemetry floor for following problems. Bleeding per rectum status post colonoscopy: -Possibly from diverticular bleed. On colonoscopy patient did not have any active bleeding. Patient has large diverticulum, possible diverticular bleed that stopped by itself. -Clear liquid diet and advance as tolerated to heart healthy, high-fiber and low -fat diet. -Continue IV PPI. -Keep his hemoglobin above 8. -Monitor his H&H. -Per GI patient can be started on anticoagulation with IV heparin initially and if patient develops bleeding then we will call GI YOLI and consider CTA abdomen. If patient starts bleeding again then transferred to ICU. -We will get records from [facility] for his previous colonoscopy. -Holding his aspirin for 1 week. Atrial flutter: -For unknown duration. Heart rate remained under control. -Continue amiodarone Acute kidney injury: Resolved -Possibly due to dehydration. -On admission creatinine was 1.3 and today it is 1.1 -Continue monitoring creatinine/BUN -Oral hydration. History of CAD status post CABG: -Patient has CABG 3 weeks back in [facility]. -Holding his aspirin History of obstructive sleep apnea: -Continue CPAP as tolerated. DVT prophylaxis; Mechanical and we will start patient on IV heparin today CODE STATUS: DNI Problem List: 1. Rectal bleed Pain Ratin Pain Location: NONE Pain Goal: Remain pain free Pain Plan: PAIN PATHWAY Tomorrow's Labs & Rationales: CBC/BEP Javier Avila MD 05/19/18 1409: Attending MD Review Statement Attending Statement Attending MD Statement: examined this patient, discuss w/resident/PA/PROGRAM PROJECT ANALYST, agreed w/resident/PA/PROGRAM PROJECT ANALYST, reviewed EMR data (avail) Attending Assessment/Plan: Patient seen and examined at bedside. Agree with resident assessment and plan. Patient is asymptomatic and feels well. No further signs of bleeding. Had a normal BM this morning. Hgb stable at 11.3. Telemetry shows afib. Colonoscopy was done today which showed diverticulosis without active bleed. Plan - Continue on telemetry - Follow cardiology and GI recommendations - Monitor CBC daily - Clear liquid diet, advance to GI's recommendations if tolerated - Start heparin drip - Continue Amiodarone - Continue home medications
--- NOTE | 2018-05-19 11:33 | PN- Cardiology ---
Subjective Subjective: Clinically stable. Remains in atrial fibrillation/flutter with controlled rate. Colonoscopy results from this morning noted Objective Vital Signs and I&Os Vital Signs Date Time Temp Pulse Resp B/P B/P Pulse O2 O2 Flow FiO2 Mean Ox Delivery Rate 05/19 1111 48 103/55 05/19 0824 53 154/60 05/19 0623 97.7 53 18 154/60 97 Room Air 05/18 2137 58 05/18 2047 98.0 56 18 176/80 96 05/18 2026 Room Air 05/18 1430 97.8 59 18 144/62 96 Room Air Intake & Output 05/19 1600 05/19 0805/19 0000 05/18 1600 05/18 0805/18 0000 Intake Total 1999 830 200 400 Output Total Balance 1999 830 200 400 Intake, IV 30 Intake, Oral 1999 800 200 400 Number 3 1 1 Bowel Movements Patient 373 lb 371 lb Weight Physical Exam: General Appearance Alert, Oriented X3, Cooperative, No Acute Distress, overweight Skin bilateral vioalaceous rash on the cheeks Skin Temp/Moisture Exam: Warm/Dry Neck Supple, JVP normal, carotids normal bilaterally Cardiovascular Regular Rate, Normal S1, Normal S2, 1/6 systolic murmur Lungs Clear to Auscultation, Normal Air Movement Abdomen Normal Bowel Sounds, Soft, No Tenderness, No Hepatospenomegaly Extremities No Clubbing, No Cyanosis, pedal edema 2+, stasis change Vascular Normal Pulses, Pulses Symmetrical Current Medications: Current Medications Sig/Brittany Start time Last Medication Dose Route Stop Time Status Admin Acetaminophen 650 MG Q6P PRN 05/16 1615 AC PO Acetaminophen 1,000 MG Q6P PRN 05/16 1615 AC IV Alprazolam 0.25 MG ONE TIME PRN 05/18 0945 DC 05/18 PO 05/18 2300 2137 Amiodarone HCl 200 MG BID 05/16 2100 AC 05/17 PO 2049 Lisinopril 20 MG DAILY 05/17 09 AC 05/19 PO 0824 Pantoprazole Sodium 40 MG DAILY 05/16 1745 AC 05/19 IV 0820 Polyethylene Glycol 1 GAL ONCE ONE 05/18 1400 DC PO 05/18 1401 Results Last 48 Hrs of Labs/Mics: Laboratory Tests 05/19/18 09: Anion Gap 7, Estimated GFR > 60, BUN/Creatinine Ratio 22.7 05/19/18 0653: CBC w Diff NO MAN DIFF REQ, RBC 3.88 L, MCV 87.2, MCH 28.6, MCHC 32.8 L, RDW 15.5 H, MPV 8.8, Gran % 77.7 H, Lymphocytes % 13.3 L, Monocytes % 7.2, Eosinophils % 1.1, Basophils % 0.7, Absolute Granulocytes 6.6 H, Absolute Lymphocytes 1.1 L, Absolute Monocytes 0.6, Absolute Eosinophils 0.1, Absolute Basophils 0.1 05/18/18 1345: Anion Gap 8, Estimated GFR 60, BUN/Creatinine Ratio 24.2, Free T4 1.41, Free T3 2.6, CBC w Diff NO MAN DIFF REQ, RBC 3.81 L, MCV 87.0, MCH 28.4, MCHC 32.7 L, RDW 15.6 H, MPV 8.1, Gran % 80.2 H, Lymphocytes % 11.7 L, Monocytes % 7.2, Eosinophils % 0.6, Basophils % 0.3, Absolute Granulocytes 7.8 H, Absolute Lymphocytes 1.1 L, Absolute Monocytes 0.7 H, Absolute Eosinophils 0.1, Absolute Basophils 0 Assessment/Plan Assessment/Plan Assessment: 1. Rectal bleeding 2. Abnormal ECG with atrial flutter of unclear duration; controlled rate 3. Known coronary disease, status post triple bypass surgery about 3 weeks ago at [facility] 4. Obesity 5. Sleep apnea 6. Mild normocytic anemia 7. Mild hyperkalemia 8. Mild AK I-resolved Recommendations: -Maintain on monitoring tech -Echocardiogram pending -Continue amiodarone; decrease dose to 200 mg daily starting today -Colonoscopy results discussed with Dr. patterson. No evidence of any overt bleeding source. Some diverticuli noted. -Please start IV heparin today. We will monitor the patient on IV heparin over the next 24 hours. At that time, if there is no evidence of recurrent bleeding, the patient can likely be transitioned to an oral anticoagulant tomorrow. Dr. Stephens will resume the patient's care tomorrow. Continue telemetry? Yes
[2018-05-19 14:12] VITALS: BP 156/64
[2018-05-19 19:31] LABS: ABSOLUTE BASOPHIL COUNT 0 /CUMM (0.0-0.2); ABSOLUTE EOSINOPHIL COUNT 0.1 /CUMM (0.0-0.7); ABSOLUTE GRANULOCYTE CT 6.7 /CUMM (1.4-6.5); ABSOLUTE LYMPH COUNT 1.1 /CUMM (1.2-3.4); ABSOLUTE MONOCYTE COUNT 0.5 /CUMM (0.10-0.60); BASOPHIL % 0.3 % (0.0-2.0); EOSINOPHIL % 1.4 % (0-5); GRANULOCYTE % 79.1 % (42.2-75.2); HEMATOCRIT 32.2 % (42-52); MEAN CORPUSCULAR HGB 28.5 PG (27.0-31.0); MEAN CORPUSCULAR VOLUME 86.2 FL (80.0-94.0); MEAN PLATELET VOLUME 7.9 FL (7.4-10.4); PLATELET COUNT 344 /CUMM (130-400); RBC DISTRIBUTION WIDTH 15.5 % (11.5-14.5); RED BLOOD CELL CT 3.74 /CUMM (4.70-6.10); WHITE BLOOD CELL COUNT 8.5 /CUMM (4.8-10.8)
[2018-05-19 19:39] LABS: PTT 24 SEC (25-37)
[2018-05-19 22:01] VITALS: BP 122/68
[2018-05-20 05:09] LABS: ABSOLUTE BASOPHIL COUNT 0 /CUMM (0.0-0.2); ABSOLUTE EOSINOPHIL COUNT 0.1 /CUMM (0.0-0.7); ABSOLUTE GRANULOCYTE CT 8.6 /CUMM (1.4-6.5); ABSOLUTE MONOCYTE COUNT 0.5 /CUMM (0.10-0.60); BASOPHIL % 0.2 % (0.0-2.0); EOSINOPHIL % 1.1 % (0-5); HEMATOCRIT 33.9 % (42-52); MEAN CORPUSCULAR HGB 28.5 PG (27.0-31.0); MEAN CORPUSCULAR VOLUME 86.5 FL (80.0-94.0); MEAN PLATELET VOLUME 8.9 FL (7.4-10.4); PLATELET COUNT 345 /CUMM (130-400); RBC DISTRIBUTION WIDTH 15.5 % (11.5-14.5); RED BLOOD CELL CT 3.92 /CUMM (4.70-6.10); WHITE BLOOD CELL COUNT 10.2 /CUMM (4.8-10.8)
[2018-05-20 05:13] LABS: PTT 27 SEC (25-37)
[2018-05-20 05:39] LABS: GRANULOCYTE % 84.4 % (42.2-75.2)
[2018-05-20 06:44] VITALS: BP 116/60
--- NOTE | 2018-05-20 07:18 | PN- Housestaff ---
Beverley Leigh 05/20/18 0718: Subjective Follow-up For: Bleeding per rectum, possible diverticular status Subjective: Afebrile overnight. Patient is seen and examined sitting up in bed this morning. Patient denies any new concerns today. Patient states he feels fine today without any chest pain, palpitations, and shortness of breath. Patient states he has leg swelling that is longstanding for which he sees Dr. Stephens for treatment. Patient otherwise is doing well and we will look to transition to oral anticoagulant today. Review of Systems Constitutional: Reports: see HPI. Objective Last 24 Hrs of Vital Signs/I&O Vital Signs Date Time Temp Pulse Resp B/P B/P Pulse O2 O2 Flow FiO2 Mean Ox Delivery Rate 05/20 0644 97.9 57 18 116/60 99 Room Air 05/19 2201 97.8 59 18 122/68 98 Room Air 05/19 2024 Room Air 05/19 1412 97.4 57 18 156/64 97 Room Air 05/19 1111 48 103/55 05/19 0824 53 154/60 Physical Exam General Appearance: Alert, Oriented X3, Cooperative, No Acute Distress Skin: No Rashes, No Breakdown HEENT: Atraumatic Neck: Supple, No JVD Cardiovascular: Regular Rate, Normal S1, Normal S2 Lungs: Clear to Auscultation Abdomen: Soft, No Tenderness Neurological: Normal Speech Extremities: 2+ edema, stasis changes Assessment/Plan Assessment: 72 YO M with PMH of hypertension, hyperlipidemia, CAD s/p triple CABG about 2 weeks ago is admitted to the [facility] service with cheif complaint of 2 episodes of painless bright red bleeding per rectum. He denies constipation or a history of hemorrhoids. He had a similar but more severe episode of bleeding about 5 years ago. A colonoscopy done at that time was apparently unrevelaing for the patient. The patient denies the use of blood thinners except Aspirin. He did haev severe diarrhea during the post op period which resolved on it own 2 days ago. He endorses getting up short of breath in the middle of the night. His symptoms are relieved sitting after sitting in the recliner. Following the patient on telemetry floor for following problems. Bleeding per rectum status post colonoscopy: - On colonoscopy patient did not have any active bleeding. Fairly extensive left-sided diverticula, from sigmoid to the distal transverse colon. Patient has large diverticulum, possible diverticular bleed that stopped by itself. -IV PPI and subsequently transitioned to oral Omeprazole -We following his H/H and keeping his hemoglobin above 8. -Per GI patient restarted on anticoagulation -Held his aspirin; began IV heparin and then transitioned to Eliquis post colonoscopy as patient did not have any evidence of active bleeding. Patient to continue on Eliquis for three weeks and then follow up as outpatient basis with cardiology for a DC Cardioversion. Subsequently, restart Eliquis after cardioversion for one more month. Holding aspirin on discharge and reasess later on follow up. Atrial flutter: -For unknown duration. Heart rate remained under control. -Continue amiodarone Acute kidney injury: Resolved -Possibly due to dehydration. -Continue monitoring creatinine/BUN -Oral hydration. History of CAD status post CABG: -Patient has CABG 3 weeks back in [facility]. -Holding his aspirin History of obstructive sleep apnea: -Continue CPAP as tolerated. DVT prophylaxis Code Status: DNI Problem List: 1. Rectal bleed Pain Ratin Pain Location: na Pain Goal: Remain pain free Pain Plan: na Tomorrow's Labs & Rationales: routine Javier Avila MD 05/20/18 1015: Attending MD Review Statement Attending Statement Attending MD Statement: examined this patient, discuss w/resident/PA/SENIOR MORTGAGE LOAN PROCESSOR, agreed w/resident/PA/SENIOR MORTGAGE LOAN PROCESSOR, reviewed EMR data (avail) Attending Assessment/Plan: Patient seen and examined at bedside. Agree with resident assessment and plan. Patient is asymptomatic and feels well. No further signs of bleeding. Had a normal BM this morning. Hgb stable at 11.2. Telemetry shows afib. Colonoscopy was done 05/19 which showed diverticulosis without active bleed. Started on heparin drip 05/19 for afib. Plan - Stable for discharge - Follow cardiology and GI recommendations - Check CBC in 1 week - Diet per GI recommendations - Stop heparin, start Eliquis - Continue Amiodarone - Continue home medications - Outpatient follow up in 3 weeks for cardioversion if remains in atrial flutter /fibrillation - Diet per GI recommendations - Stop heparin, start Eliquis - Continue Amiodarone - Continue home medications - Outpatient follow up in 3 weeks for cardioversion if remains in atrial flutter /fibrillation
[2018-05-20 08:23] VITALS: BP 128/64
[2018-05-20] MEDS ORDERED: ELIQUIS5 M1 PO ×3 (11:02→13:07)
--- NOTE | 2018-05-20 11:37 | Patient Discharge Instructions ---
Discharge Instructions General Discharge Information You were seen/treated for: Gastrointestinal Bleed You had these procedures: ECHO Chest CT CT Abd/Pelvis Colonoscopy Watch for these problems: If you experience any rectal bleeding, diarrhea, constipation, fevers, chills, fatigue, and/or chest pain, please follow up with your PCP. Special Instructions: Please follow up with your PCP within one week. Please follow up with your assembly lead person on 05/24/18 within one week and plan your cardioversion with Dr. Stephens. Please continue to take your home medications including a blood thinner Eliquis. Diet Continue normal diet: Yes Recommended Diet: Regular Activity Full Activity/No Limits: No Activity Self Limited: Yes Acute Coronary Syndrome Inclusion Criteria At DC or during hospital stay patient has or had the following: ACS DIAGNOSIS No Discharge Core Measures Meds if any: Prescribed or Continued at Discharge Meds if any: NOT Prescribed or Continued at Discharge Congestive Heart Failure Inclusion Criteria At DC or during hospital stay patient has or had the following: CHF DIAGNOSIS No Discharge Core Measures Meds if any: Prescribed or Continued at Discharge Meds if any: NOT Prescribed or Continued at Discharge Cerebrovascular accident Inclusion Criteria At DC or during hospital stay patient has or had the following: CVA/TIA Diagnosis No Discharge Core Measures Meds if any: Prescribed or Continued at Discharge Meds if any: NOT Prescribed or Continued at Discharge Venous thromboembolism Inclusion Criteria VTE Diagnosis No VTE Type NONE VTE Confirmed by (Test) NONE Discharge Core Measures - Per Current guidelines, there needs to be overlap - treatment for the first 5 days of Warfarin therapy. - If discharged on Warfarin prior to 5 days of - overlap therapy, the patient will need to be - assessed for post discharge needs including - *Post discharge parental anticoagulation - *Warfarin and/or parental anticoagulation education - *Follow up date to check INR post discharge At least 5 days overlap therapy as Inpatient No Meds if any: Prescribed or Continued at Discharge Note: Overlap Therapy is Warfarin and Anticoagulant Meds if any: NOT Prescribed or Continued at Discharge
--- NOTE | 2018-05-20 11:57 | Discharge Summary ---
See Addendum Visit Information Visit Dates Admission Date: 05/16/18 Discharge Date: 05/20/18 Hospital Course Course Attending Physician: Tere LAZO,Jarocho Pagan [facility]: 72 YO M with PMH of hypertension, hyperlipidemia, CAD s/p triple CABG about 2 weeks ago [facility] with a chief complaint of 2 episodes of painless bright red bleeding per rectum. He denied constipation or a history of hemorrhoids. He had a similar but more severe episode of bleeding about 5 years ago. A colonoscopy done at that time was apparently unrevelaing for the patient. The patient denies the use of blood thinners except Aspirin. He did have severe diarrhea during the post op period which resolved on it own 2 days ago. He endorses getting up short of breath in the middle of the night. His symptoms are relieved after sitting in the recliner. 1. Bleeding per rectum status post colonoscopy: - On colonoscopy patient did not have any active bleeding. Fairly extensive left-sided diverticula, from sigmoid to the distal transverse colon. Patient has large diverticulum, possible diverticular bleed that stopped by itself. -Continued IV PPI and subsequently transitioned to oral Omeprazole -We followed his H/H and kept his hemoglobin above 8. -Per GI patient restarted on anticoagulation with IV heparin initially -Held his aspirin; began IV heparin and then transitioned to Eliquis post colonoscopy as patient did not have any evidence of active bleeding. Patient to continue on Eliquis for three weeks and then follow up as outpatient basis with cardiology for a DC Cardioversion. Subsequently, restart Eliquis after cardioversion for one more month. Holding aspirin on discharge and reasess later on follow up. 2. Atrial flutter: -For unknown duration. Heart rate remained under control. -Continued amiodarone 3. Acute kidney injury: Resolved -Likely due to dehydration. -Continued monitoring creatinine/BUN -Oral hydration. 4. History of CAD status post CABG: -Patient has CABG 3 weeks back in [facility]. -Held his aspirin 5. History of obstructive sleep apnea: -Continued CPAP Allergies: Coded Allergies: Beta-Blockers (Beta-Adrenergic Bloc (Severe, PSYCHOTIC EPISODE 05/16/18) pravastatin (Severe, PANIC ATTACKS 05/16/18) Significant Procedures: Colonoscopy 05/19 - 1. Fairly extensive left-sided diverticula, from the sigmoid to the distal transverse colon. 2. Normal colonic mucosa to the last 10 cm of the terminal ileum. No active lower GI bleeding seen (not a speck of blood was seen). *Statistically, most likely, the patient probably had a self-limited diverticular bleed, which resolved. ECHO - 05/18/18 Normal left ventricular size with mild to moderate left ventricular hypertrophy. Normal systolic function with no obvious regional wall motion abnormalities. The ejection fraction is visually estimated at 60 %. Disposition Summary Disposition Principal Diagnosis: Bleeding per rectur s/p colonoscopy Additional Diagnosis: Atrial Flutter Discharge Disposition: home or self care Discharge Instructions General Discharge Information Code Status: Do Not Intubate Patient's Diet: Regular Patient's Activity: Ad rodger Follow-Up Instructions/Appts: Please follow up with your PCP within one week. Please follow up with your space engineer within one week. Please continue to take your home medications. Medications at Discharge Discharge Medications: Stop taking the following medications: Aspirin (Ecotrin*) 81 MG TABLET. ORAL DAILY Continue taking these medications: Lisinopril (Lisinopril) 20 MG TABLET 1 Tablet ORAL DAILY Qty = 30 Comments: Last Taken: 05/20/18 Time: 08:00 AM Furosemide (Furosemide) 40 MG TABLET 1 Tablet ORAL DAILY Comments: NOT GIVEN Amiodarone (Cordarone) 200 MG TAB 1 Tablet ORAL DAILY Comments: Last Taken: 05/20/18 Time: 08:00 AM Oxycodone HCl (Oxycodone HCl) 5 MG TABLET 1 Tablet ORAL EVERY 6 HOURS NEEDED as needed for pain Comments: NOT GIVEN Start taking the following new medications: Omeprazole (Omeprazole) 20 MG CAPSULE. 40 Milligram ORAL TWICE DAILY Qty = 60 No Refills Instructions: . Apixaban (Eliquis) 5 MG TABLET 5 Milligram ORAL TWICE DAILY Qty = 42 No Refills Instructions: . Comments: Last Taken: 05/20/18 Time: 08:00 AM Copies To: Yusef Hirsch APRN, MD Review Statement Documenting Attending: [place] LAZO,Javier
[2018-05-20] MEDS ORDERED: OMEPRAZOLE20 M2 PO ×2 (11:58→13:07)
--- NOTE | 2018-05-20 12:07 | PN- Cardiology ---
Subjective Subjective: * No complaints of chest discomfort, shortness of breath, lightheadedness or palpitations. * Atrial flutter with controlled heart rate * stable H/H Objective Vital Signs and I&Os Vital Signs Date Time Temp Pulse Resp B/P B/P Pulse O2 O2 Flow FiO2 Mean Ox Delivery Rate 05/20 823 72 128/64 05/20 0822 72 128/64 05/20 0644 97.9 57 18 116/60 99 Room Air 05/19 2201 97.8 59 18 122/68 98 Room Air 05/19 2024 Room Air 05/19 1412 97.4 57 18 156/64 97 Room Air Intake & Output 05/20 1600 05/20 0800 05/20 0000 05/19 1600 05/19 0800 05/19 0000 Intake Total 532 2000 Output Total Balance 532 2000 Intake, IV 52 Intake, Oral 480 2000 Number 2 3 Bowel Movements Patient 373 lb Weight Physical Exam: General: WD/obese male in NAD; alert and oriented x 3 HEENT: NC/AT, PERRL, EOMI Neck: no JVD Heart: RRR with ectopy Lungs: clear bilaterally Extremities: 2+ bilateral leg edema Assessment/Plan Assessment/Plan * This patient has demonstrated post-op atrial flutter which has not responded to Amiodarone. In consideration of his potential bleeding issues we will attempt conversion to a sinuys rhythm which will limit his intermediate risk for chronic anticoagulation. He should continue on Eliquis for three weeks which will be followed by DC cardioversion and one more month of Eliquis. After that period of time the Eliquis can be stopped. He should continue on Amiodarone in the meantime. Hold aspirin * This patient has severe leg edema. I do not think he has decompensated CHF. Begin Lasix at 40mg PO daily and we will follow up with him in the office in a few days. * Okay to discharge to to home with follow up in the office on Saturday. Continue telemetry? No
== END 2018-05-20 14:30 | disposition home health service (06) | DRG 378 ==
LOC: ERH 11:57 → ERHI 15:22 → 1NO 15:22 → ENRESERV 16:11 → ENTRNSPT 17:31 → EDTRNSPT 17:42 → EDTRNSPTSTS 17:42 → EDTRNSPT 17:52 → 2NB 17:59 → EDTRNSPT 18:38 → CMPTRNSPT 18:39 → 1NO 05-17 14:11 → ENTRNSPT 05-19 08:36 → EDTRNSPTSTS 05-19 09:09 → EDTRNSPT 05-19 09:09 → CMPTRNSPT 05-19 09:29 → 1NO 05-20 08:43 → ENPENDDIS 05-20 12:01 → ENTRNSPT 05-20 14:13 → EDTRNSPTSTS 05-20 14:21 → 1NO 05-20 14:30 → CMPTRNSPT 05-20 14:32
PROVIDERS: Hospitalist; Internal Medicine; Physician Assistant Medical; Preventive Medicine Public Health & General Preventive Medicine; Student in an Organized Health Care Education/Training Program
PROC: 0DJD8ZZ Inspection of Lower Intestinal Tract, Via Natural or Artificial Opening Endoscopic (ICD-10-PCS; principal; 2018-05-19)
DX: K57.31 Diverticulosis of large intestine without perforation or abscess with bleeding (principal); N17.9 Acute kidney failure, unspecified; D62 Acute posthemorrhagic anemia; Z68.42 Body mass index [BMI] 45.0-49.9, adult; I48.92 Unspecified atrial flutter; E87.5 Hyperkalemia; E66.01 Morbid (severe) obesity due to excess calories; I10 Essential (primary) hypertension; D47.3 Essential (hemorrhagic) thrombocythemia; E78.5 Hyperlipidemia, unspecified; I25.10 Atherosclerotic heart disease of native coronary artery without angina pectoris; Z95.1 Presence of aortocoronary bypass graft; Z88.8 Allergy status to other drugs, medicaments and biological substances; Z90.49 Acquired absence of other specified parts of digestive tract; F41.9 Anxiety disorder, unspecified; H26.9 Unspecified cataract
CPT/HCPCS: 1NP; 2NBSP; 36592; 74176; 82436; 84481; 93005; 93010; 93306; J1644; J7060